=== PATIENT | male | born 1950 | race Caucasian/White ===

== ENCOUNTER 2016-08-09 13:24 | Emergency (ER) | payer MEDICARE, MEDICAID ==
[2016-08-09] MEDS ORDERED: GASTROGRAFIN SOLUTION 30ML (Q9963) As Ordered ONE (14:31)
[2016-08-09 14:35] LABS: BASO % 0.3 % (0.0-1.0); EOS # 0.5 K/mm3 (0.0-0.50); EOS % 4.7 % (0.0-3.0); LARGE UNSTAINED CELL # 0.1 K/mm3 (0.0-0.4); LARGE UNSTAINED CELL % 1.3 % (0.0-4.0); LYMPH # 1.2 K/mm3 (1.5-4.5); LYMPH % 12.4 % (24.0-44.0); MEAN CORPUSCULAR HEMOGLOBIN 31.6 pg (27.0-33.0); MEAN CORPUSCULAR HGB CONC 32.9 g/dl (32.0-36.5); MEAN CORPUSCULAR VOLUME 96.2 fl (80.0-96.0); MONO # 0.4 K/mm3 (0.0-0.8); MONO % 4.1 % (0.0-5.0); NEUTROPHILS # 7.5 K/mm3 (1.8-7.7); NEUTROPHILS % 77.2 % (36.0-66.0); PLATELET COUNT, AUTOMATED 226 k/mm3 (150-450); WHITE BLOOD COUNT 9.7 K/mm3 (4.0-10.0)
[2016-08-09 15:00] LABS: BLOOD UREA NITROGEN 15 MG/DL (7-18); GLUCOSE, FASTING 105 MG/DL (80-110)
[2016-08-09 15:01] LABS: ALBUMIN 3.3 GM/DL (3.2-5.2); ALBUMIN/GLOBULIN RATIO 0.92 (1.00-1.93); ALKALINE PHOSPHATASE 62 U/L (45-117); ALT/SGPT 13 U/L (12-78); ANION GAP 9 MEQ/L (8-16); AST/SGOT 12 U/L (15-37); BILIRUBIN,DIRECT 0.2 MG/DL (0.0-0.2); BILIRUBIN,TOTAL 0.4 MG/DL (0.2-1.0); CARBON DIOXIDE LEVEL 28 MEQ/L (21-32); CHLORIDE LEVEL 105 MEQ/L (98-107); CREATININE FOR GFR 0.86 MG/DL (0.70-1.30); GLOMERULAR FILTRATION RATE > 60.0 (>49); POTASSIUM SERUM 3.9 MEQ/L (3.5-5.1); SODIUM LEVEL 142 MEQ/L (136-145); TOTAL PROTEIN 6.9 GM/DL (6.4-8.2)
[2016-08-09] MEDS ORDERED: ISOVUE-370 76% 100ML VIAL (Q9967) As Ordered ONE (15:51)
[2016-08-09] MEDS ORDERED: ACETAMINOPHEN 325 MG TAB As Ordered ONE (17:33)
[2016-08-09] MEDS ORDERED: metroNIDAZOLE (FLAGYL) 500 MG TAB As Ordered ONE (18:25)
[2016-08-09] MEDS ORDERED: CIPROFLOXACIN 500 MG TAB As Ordered ONE (18:25)
--- NOTE | 2016-08-09 18:36 | REP ---
CT of the abdomen and pelvis with IV and oral contrast: Indication: Diverticulitis. Comparison: CT abdomen and pelvis 03/05. Technique: After drinking two cups of oral contrast each containing 10 ml gastrographin and 290 ml water, and IV injection of 100 ml Isovue 370 mg/ml, 3 mm spiral axial sections were performed through abdomen and pelvis. Findings: Fibroatelectatic changes are seen in the lower lobes bilaterally. Additionally there are bullous changes in lung bases, left greater than right and unchanged. Liver without focal lesion. Spleen, pancreas, gallbladder, adrenal glands are normal. Kidneys are without hydronephrosis or obstructing ureteral calculi bilaterally. The stomach and small bowel are without obstruction. There is mural thickening in the terminal ileum, in the base of cecum, cecum and second area of mural thickening within the distal portion of the ascending colon, contiguous with the hepatic flexure. There is extensive diverticulosis involving descending and entire sigmoid colon. Abdominal aorta is of normal course and caliber. There are atherosclerotic changes in the aorta and iliac arteries. Bladder is contracted. Persistent prostatic hypertrophy with interval increase in size and progression of small nodular focus within the prostate is seen with extrinsic impression upon the inferior bladder. There are associated coarse calcifications within the periphery of the nodular prosthetic component. Prostate measures 4 cm AP by 5.5 cm transverse by 5 cm craniocaudal dimension. There is no free air or ascites. The appendix is normal. There are no lytic or blastic lesions of bone. Advanced degenerative disc changes noted L4-5 and L5-S1 bilaterally. Impression: 1. Moderate mural thickening with skip areas seen within the terminal ileum, base of cecum, ascending colon, and hepatic flexure. Differential diagnosis includes colitis, which could be on the basis of infectious colitis, ischemic, or inflammatory colitis. Recommend follow-up to resolution. There is no free intraperitoneal air and there is no evidence of pneumatosis. 2. Mild to moderate prostatic hypertrophy not significantly changed, with extrinsic impression upon the inferior bladder, similar to prior.3. Appendix without inflammation.4. Severe/extensive sigmoid diverticulosis. Case discussed with Dr. Kaminski in ED on 08/09/16 at 5 pm. Signed by Kaitlynn Bailon MD 08/13/2016 08:31 P
--- NOTE | 2016-08-09 18:38 | EDDOCDS ---
Physician Documentation [facility] Name: Joseph Carranza Age: 66 yrs Sex: Male : 1950 Arrival Date: 08/09/2016 Time: 13:24 Bed 19 Private MD: Lennox Burr M.D. Disposition: 08/09/16 18:13 Discharged to Home/Self Care. Impression: Acute upper respiratory infection, unspecified, Abdominal and pelvic pain - Colitis. - Condition is Stable. - Discharge Instructions: Abdominal Pain, Adult, Upper Respiratory Infection, Adult. - Prescriptions for Cipro 500 mg Oral Tablet - take 1 tablet by ORAL route every 12 hours; 14 tablet. Flagyl 500 mg Oral Tablet - take 1 tablet by ORAL route every 8 hours for 7 days; 21 tablet. - Medication Reconciliation, Local Pharmacy Hours form. - Follow up: Lennox Burr; When: 2 - 3 days; Reason: Recheck today's complaints. Follow up: Xavi Pope; When: 2 - 3 days; Reason: Recheck today's complaints. - Problem is new. - Symptoms are unchanged. - Notes: You were seen in the ED for shortness of breath, cough and congestion. Chest Xray along with bloodwork showed no acute findings at this time. CT scan of the abdomen showed findings consistent with colitis - you will need further evaluation of this with Dr. Burr and Gastroenterology. Please call in the morning to make both of these appointments. Take the antibiotics as written. Return to the ED for any chest pain, trouble breathing, worsening abdominal pain, fever, inability to tolerate oral foods or liquids or any other concerns. Historical: - Allergies: no known allergies; - Home Meds: 1. lisinopril 10 mg Oral tab 1 tab once daily (Last dose: 08/09/2016 10:00) 2. simvastatin 10 mg Oral tab 1 tab once daily 3. Prozac 40 mg Oral cap 1 cap once daily 4. albuterol sulfate 90 mcg/actuation Inhl aepb 2 puffs every 4-6 hours as needed 5. albuterol sulfate 1.25 mg/3 mL Inhl nebu 3 mL 4 times per day - PMHx: Depression; Hypertension; High Cholesterol; COPD; - PSHx: bilateral Knees; Tonsillectomy; - Social history: Smoking status: Patient states former smoker of tobacco. No barriers to communication noted, The patient speaks fluent Turkish, Speaks appropriately for age. - Family history: No immediate family members are acutely ill. - : The pt / caregiver states he / she is not on anticoagulants. Home medication list is obtained from the patient. - Exposure Risk Screening:: None identified. Vital Signs: 08/09 13:26 BP 142 / 91; Pulse 104; Resp 20; Temp 97.4; Pulse Ox 96% ; Weight 90.72 kg / 200 lbs; cmb Height 6 ft. 3 in. (190.50 cm); Pain 7/10; 13:34 Resp 24; mlb1 16:07 Pulse 76 MON; Pulse Ox 94% ; mb9 16:07 BP 132 / 76 (auto/); mb9 16:09 Pulse 74 MON; Pulse Ox 94% ; mb9 16:09 BP 137 / 85 (auto/); mb9 16:39 Pulse 70 MON; Pulse Ox 94% ; mb9 16:39 BP 118 / 76 (auto/); mb9 17:09 Pulse 74 MON; Pulse Ox 92% ; mb9 17:09 BP 118 / 66 (auto/); mb9 13:26 Body Mass Index 25.00 (90.72 kg, 190.50 cm) cmb MDM: 13:54 -Blood Culture (Adults Only), peripheral from different site, or from device/port/PICC sd1 etc. if present ordered. 13:54 Traveling Nurse/Pulse Ox/q 15 min VS ordered. sd1 13:54 IV Saline Lock ordered. sd1 13:54 Oxygen at 4L/Min NC or Home dosage ordered. sd1 13:54 Rhythm Strip to chart ordered. sd1 13:55 B-Type Natiuretic Peptide Ordered. EDMS 13:55 Basic Metabolic Profile Ordered. EDMS 13:55 CBC with Diff Ordered. EDMS 13:55 Cardiac Injury Profile Ordered. EDMS 13:55 Troponin Ordered. EDMS 13:55 -Blood Culture Ordered. EDMS 13:56 Chest, 1 View Ordered. EDMS 13:56 ECG WITH READING ER PHYS+CARDIAG ordered. EDMS 13:58 -Blood Culture (Adults Only), peripheral from different site, or from device/port/PICC jlf etc. if present complete. 14:00 BLOOD CULTURES Ordered. EDMS 14:08 CT ABD & PELVIS: IV and Oral Contrast Ordered. EDMS 14:26 Diatrizoate Meglumine & Sodium Liquid 10 ml PO once; mix in 290cc of water ordered. mb9 14:26 Diatrizoate Meglumine & Sodium Liquid 10 ml PO once; mix in 290cc of water ordered. mb9 14:29 LIPASE Ordered. EDMS 14:29 LIVER PROFILE Ordered. EDMS 14:59 CBC with Diff Reviewed. br1 15:19 Financial registration complete. gjb 15:24 [facility] Payment Agreement was scanned into [employer] and attached to record. gjb 16:09 LIVER PROFILE Reviewed. br1 16:09 B-Type Natiuretic Peptide Reviewed. br1 16:09 Basic Metabolic Profile Reviewed. br1 16:09 Cardiac Injury Profile Reviewed. br1 16:09 Troponin Reviewed. br1 16:09 LIPASE Reviewed. br1 17:05 Acetaminophen Tablet 650 mg PO once ordered. br1 17:59 REGULAR+DIET ordered. EDMS 18:11 Ciprofloxacin 500 mg PO once ordered. br1 18:11 metroNIDAZOLE 500 mg PO once ordered. br1 Administered Medications: 14:30 Drug: Diatrizoate Meglumine & Sodium 10 ml [diatrizoate meglumine and diat.sodium 66 mb9 %-10 % oral solution (10 mL)] Route: PO; 15:05 Drug: Diatrizoate Meglumine & Sodium 10 ml [diatrizoate meglumine and diat.sodium 66 mb9 %-10 % oral solution (10 mL)] Route: PO; 17:36 Drug: Acetaminophen 650 mg [acetaminophen 325 mg tablet (2 tabs)] Route: PO; mb9 18:35 Drug: Ciprofloxacin 500 mg [ciprofloxacin 500 mg tablet (1 tabs)] Route: PO; mb9 18:35 Drug: metroNIDAZOLE 500 mg [metronidazole 500 mg tablet (1 tabs)] Route: PO; mb9 Signatures: Dispatcher [employer] EDMS Lucinda Tatum MD MD sdAlejandro Hu RN RN mlb1 Abilio Kaminski MD MD br1 Saúl Paiz, JEANNETTE ASSOCIATE ACCOUNT MANAGER jlf Alejandro Herrera,RN RN [id number] Francesca Regan The chart was reviewed and I authenticate all verbal orders and agree with the evaluation and treatment provided.Corrections: (The following items were deleted from the chart) 14:29 14:08 LIVER PROFILE+LAB ordered. EDMS EDMS 14 14:08 LIPASE+LAB ordered. EDMS EDMS Attachments: 15:24 [facility] Payment Agreement gjb [facility]
--- NOTE | 2016-08-09 18:39 | EDDOCDS ---
Nurse's Notes [facility] Name: Joseph Carranza Age: 66 yrs Sex: Male : 1950 Arrival Date: 08/09/2016 Time: 13:24 Bed 19 Private MD: Lennox Burr M.D. Diagnosis: Acute upper respiratory infection, unspecified;Abdominal and pelvic pain-Colitis Presentation: 08/09 13:28 Presenting complaint: Patient states: SOB and productive cough began Sunday. Adult mlb1 Sepsis Screening: The patient does not have new or worsening altered mentation. Patient's respiratory rate is less than 22. Systolic blood pressure is greater than 100. Patient has a qSOFA score of 0- Negative Sepsis Screen. Suicide/Homicide risk assessment- the patient denies having any suicidal and/or homicidal ideations and does not present with any other emotional, behavioral or mental health complaints. Status: Patient is not a conference services director or dependent. Transition of care: patient was not received from another setting of care. 13:28 Acuity: ASHOK Level 3 mlb1 13:28 Method Of Arrival: Walkin/Carried/Asstd mlb1 Triage Assessment: 13:32 General: Appears distressed, Behavior is appropriate for age, cooperative. Pain: mlb1 Location: low back area Pain currently is 7.5 out of 10 on a pain scale. Respiratory: Onset: The symptoms/episode began/occurred gradually, Airway is patent Respiratory effort is even, labored, Reports cough that is productive. Historical: - Allergies: no known allergies; - Home Meds: 1. lisinopril 10 mg Oral tab 1 tab once daily (Last dose: 08/09/2016 10:00) 2. simvastatin 10 mg Oral tab 1 tab once daily 3. Prozac 40 mg Oral cap 1 cap once daily 4. albuterol sulfate 90 mcg/actuation Inhl aepb 2 puffs every 4-6 hours as needed 5. albuterol sulfate 1.25 mg/3 mL Inhl nebu 3 mL 4 times per day - PMHx: Depression; Hypertension; High Cholesterol; COPD; - PSHx: bilateral Knees; Tonsillectomy; - Social history: Smoking status: Patient states former smoker of tobacco. No barriers to communication noted, The patient speaks fluent Maldivian, Speaks appropriately for age. - Family history: No immediate family members are acutely ill. - : The pt / caregiver states he / she is not on anticoagulants. Home medication list is obtained from the patient. - Exposure Risk Screening:: None identified. Screenin:07 Screening information is obtained from the patient. Fall risk: No risks identified. mb9 Assistance ADL's: requires no assistance with activities of daily living. Abuse/DV Screen: The patient / caregiver reports he/she is: not in a situation that causes fear, pain or injury. Nutritional screening: No deficits noted. Advance Directives: There is no active DNR order. home support is adequate. Assessment: 13:46 General: Appears unkempt, Behavior is appropriate for age, fussy. Pain: Location: mb9 posterior cervical area and low back area Pain currently is 5 out of 10 on a pain scale. Neurological: Level of Consciousness is awake, alert, Oriented to person, place, time. Cardiovascular: Heart tones S1 S2 present Rhythm is sinus rhythm No ectopy. Respiratory: Airway is patent Respiratory effort is even, labored, Respiratory pattern is regular, symmetrical, Breath sounds are clear bilaterally. Reports shortness of breath cough that is. GI: Reports bloody stools pt reports bloody stools after a fall on Sunday. pt reports a history of internal hemorrhoids. Derm: pt has several healing wounds to his nose after a fall on Sunday. 16:07 Reassessment: Patient appears in no apparent distress at this time. Adult Sepsis mb9 Screening: The patient does not have new or worsening altered mentation. Patient's respiratory rate is less than 22. Systolic blood pressure is greater than 100. Patient has a qSOFA score of 0- Negative Sepsis Screen. General: Appears in no apparent distress, Behavior is appropriate for age, cooperative. Pain: Denies pain. Neurological: Level of Consciousness is awake, alert, Oriented to person, place, time. Respiratory: Airway is patent Respiratory effort is even, unlabored, Breath sounds are clear bilaterally. 17:36 Reassessment: Patient appears in no apparent distress at this time. Patient states mb9 symptoms have improved. General: Appears in no apparent distress, Behavior is appropriate for age, cooperative. Pain: Location: headache. Neurological: Level of Consciousness is awake, alert, Oriented to person, place, time. Respiratory: Airway is patent Respiratory effort is even, unlabored. 18:36 Reassessment: Patient appears in no apparent distress at this time. Patient states mb9 feeling better. Patient states symptoms have improved. Adult Sepsis Screening: The patient does not have new or worsening altered mentation. Patient's respiratory rate is less than 22. Systolic blood pressure is greater than 100. Patient has a qSOFA score of 0- Negative Sepsis Screen. General: Appears in no apparent distress, Behavior is appropriate for age, cooperative. Pain: Denies pain. Respiratory: Airway is patent Respiratory effort is even, unlabored. Vital Signs: 13:26 BP 142 / 91; Pulse 104; Resp 20; Temp 97.4; Pulse Ox 96% ; Weight 90.72 kg; Height 6 cmb ft. 3 in. (190.50 cm); Pain 7/10; 13:34 Resp 24; mlb1 16:07 Pulse 76 MON; Pulse Ox 94% ; mb9 16:07 BP 132 / 76 (auto/); mb9 16:09 Pulse 74 MON; Pulse Ox 94% ; mb9 16:09 BP 137 / 85 (auto/); mb9 16:39 Pulse 70 MON; Pulse Ox 94% ; mb9 16:39 BP 118 / 76 (auto/); mb9 17:09 Pulse 74 MON; Pulse Ox 92% ; mb9 17:09 BP 118 / 66 (auto/); mb9 13:26 Body Mass Index 25.00 (90.72 kg, 190.50 cm) cmb Vitals: 13:26 Log In Time: August 09, 2016 at 13:23. cmb ED Course: 13:25 Patient visited by Lizzie Hall. cmb 13:25 Patient moved to Waiting cmb 13:26 Lennox Burr is Private Physician. cmb 13:27 Patient moved to Pre RCE cmb 13:28 Patient visited by Alejandro Oliveros, RN. mlb1 13:29 Triage Initiated mlb1 13:33 Patient visited by Alejandro Oliveros, RN. mlb1 13:34 Patient moved to 19 mlb1 13:58 Abilio Kaminski MD is Attending Physician. br1 14:06 Patient visited by Abilio Kaminski MD. br1 14:19 EKG done. (by ED staff). Reviewed by Abilio Kaminski MD. jml1 14:20 Patient visited by Sergio Pyle. jml1 14:25 -Blood Culture Sent. mb9 14:25 B-Type Natiuretic Peptide Sent. mb9 14:25 Basic Metabolic Profile Sent. mb9 14:25 CBC with Diff Sent. mb9 14:25 Cardiac Injury Profile Sent. mb9 14:25 Troponin Sent. mb9 14:41 LIPASE Sent. mb9 14:41 LIVER PROFILE Sent. mb9 15:16 Patient visited by Sergio Pyle. jml1 15:24 [facility] Payment Agreement was scanned into [employer] and attached to record. gjb 16:07 Patient visited by Alejandro Herrera RN. mb9 16:07 The patient / caregiver is instructed regarding the plan of care and ED course. mb9 16:07 Inserted saline lock: 18 gauge in left antecubital area and blood collected. The mb9 patient tolerated the procedure well. 16:28 Patient visited by Saúl Paiz PCA. jlf 17:00 Patient visited by Saúl Paiz PCA. jlf 17:36 Patient visited by Alejandro Herrera RN. mb9 18:11 Lennox Burr is Referral Physician. br1 18:11 Xavi Pope is Referral Physician. br1 18:36 Discontinued IV lock intact, bleeding controlled, pressure dressing applied, No mb9 redness/swelling at site. No procedures done that require assistance. Administered Medications: 14:30 Drug: Diatrizoate Meglumine & Sodium 10 ml [diatrizoate meglumine and diat.sodium 66 mb9 %-10 % oral solution (10 mL)] Route: PO; 15:05 Drug: Diatrizoate Meglumine & Sodium 10 ml [diatrizoate meglumine and diat.sodium 66 mb9 %-10 % oral solution (10 mL)] Route: PO; 17:36 Drug: Acetaminophen 650 mg [acetaminophen 325 mg tablet (2 tabs)] Route: PO; mb9 18:35 Drug: Ciprofloxacin 500 mg [ciprofloxacin 500 mg tablet (1 tabs)] Route: PO; mb9 18:35 Drug: metroNIDAZOLE 500 mg [metronidazole 500 mg tablet (1 tabs)] Route: PO; mb9 Order Results: Lab Order: B-Type Natiuretic Peptide; SPEC'M 08/09/16 14:22 Test: BRAIN NATRIURETIC PEPTIDE; Value: 29.6; Range: <100; Units: PG/ML; Status: F Lab Order: Basic Metabolic Profile; SPEC'M 08/09/16 14:22 Test: GLUCOSE, FASTING; Value: 105; Range: 80-110; Units: MG/DL; Status: F Test: BLOOD UREA NITROGEN; Value: 15; Range: 7-18; Units: MG/DL; Status: F Test: CREATININE FOR GFR; Value: 0.86; Range: 0.70-1.30; Units: MG/DL; Status: F Test: GLOMERULAR FILTRATION RATE; Value: > 60.0; Range: >49; Status: F Test: SODIUM LEVEL; Value: 142; Range: 136-145; Units: MEQ/L; Status: F Test: POTASSIUM SERUM; Value: 3.9; Range: 3.5-5.1; Units: MEQ/L; Status: F Test: CHLORIDE LEVEL; Value: 105; Range: 98-107; Units: MEQ/L; Status: F Test: CARBON DIOXIDE LEVEL; Value: 28; Range: 21-32; Units: MEQ/L; Status: F Test: ANION GAP; Value: 9; Range: 8-16; Units: MEQ/L; Status: F Test: CALCIUM LEVEL; Value: 9.0; Range: 8.8-10.2; Units: MG/DL; Status: F Test Note: ; Units are mL/min/1.73 m2 Chronic Kidney Disease Staging per NKF: Stage I & II GFR >=60 Normal to Mildly Decreased Stage III GFR 30-59 Moderately Decreased Stage IV GFR 15-29 Severely Decreased Stage V GFR <15 Very Little GFR Left ESRD GFR <15 on BUDGET ACCOUNTANT Lab Order: CBC with Diff; SPEC'M 08/09/16 14:22 Test: WHITE BLOOD COUNT; Value: 9.7; Range: 4.0-10.0; Units: K/mm3; Status: F Test: RED BLOOD COUNT; Value: 4.74; Range: 4.30-6.10; Units: M/mm3; Status: F Test: HEMOGLOBIN; Value: 15.0; Range: 14.0-18.0; Units: g/dl; Status: F Test: HEMATOCRIT; Value: 45.6; Range: 42.0-52.0; Units: %; Status: F Test: MEAN CORPUSCULAR VOLUME; Value: 96.2; Range: 80.0-96.0; Abnormal: Above high normal; Units: fl; Status: F Test: MEAN CORPUSCULAR HEMOGLOBIN; Value: 31.6; Range: 27.0-33.0; Units: pg; Status: F Test: MEAN CORPUSCULAR HGB CONC; Value: 32.9; Range: 32.0-36.5; Units: g/dl; Status: F Test: RED CELL DISTRIBUTION WIDTH; Value: 13.0; Range: 11.5-14.5; Units: %; Status: F Test: PLATELET COUNT, AUTOMATED; Value: 226; Range: 150-450; Units: k/mm3; Status: F Test: NEUTROPHILS %; Value: 77.2; Range: 36.0-66.0; Abnormal: Above high normal; Units: %; Status: F Test: LYMPH %; Value: 12.4; Range: 24.0-44.0; Abnormal: Below low normal; Units: %; Status: F Test: MONO %; Value: 4.1; Range: 0.0-5.0; Units: %; Status: F Test: EOS %; Value: 4.7; Range: 0.0-3.0; Abnormal: Above high normal; Units: %; Status: F Test: BASO %; Value: 0.3; Range: 0.0-1.0; Units: %; Status: F Test: LARGE UNSTAINED CELL %; Value: 1.3; Range: 0.0-4.0; Units: %; Status: F Test: NEUTROPHILS #; Value: 7.5; Range: 1.8-7.7; Units: K/mm3; Status: F Test: LYMPH #; Value: 1.2; Range: 1.5-4.5; Abnormal: Below low normal; Units: K/mm3; Status: F Test: MONO #; Value: 0.4; Range: 0.0-0.8; Units: K/mm3; Status: F Test: EOS #; Value: 0.5; Range: 0.0-0.50; Units: K/mm3; Status: F Test: BASO #; Value: 0.0; Range: 0.0-0.2; Units: K/mm3; Status: F Test: LARGE UNSTAINED CELL #; Value: 0.1; Range: 0.0-0.4; Units: K/mm3; Status: F Lab Order: Cardiac Injury Profile; [facility] 08/09/16 14:22 Test: CPK CREATINE PHOSPHOKINASE; Value: 41; Range: 39-308; Units: U/L; Status: F Test: CK-MB VALUE MASS; Value: 1.2; Range: 0.0-3.6; Units: NG/ML; Status: F Test: MB/CK RELATIVE INDEX; Value: 2.92; Range: < OR =4; Status: F Test Note: ; DIAGNOSIS CRITERIA MMB ng/ml Relative Index (RI) NON-AMI < or = 5 N/A RIVERA ZONE > 5 < or = 4 AMI > 5 > 4 Lab Order: Troponin; [facility]' 08/09/16 14:22 Test: TROPONIN I; Value: < 0.02; Range: < 0.10; Units: NG/ML; Status: F Test Note: ; Troponin I Reference Interval for [place] LOCI: 99th Percentile= 0.00-0.045 ng/ml Risk Stratification: <= 0.10 ng/ml Decreased Risk for Adverse Clinical Events. 0.10-1.50 ng/ml Increased Risk for Adverse Clinical Events. Evaluation of additional criterion and/or repeat testing in 2-6 hours is suggested to rule out myocardial damage. >= 1.50 ng/ml Indicative of Myocardial Injury. Lab Order: LIPASE; [facility]' 08/09/16 14:22 Test: LIPASE; Value: 108; Range: 73-393; Units: U/L; Status: F Lab Order: LIVER PROFILE; [facility]' 08/09/16 14:22 Test: AST/SGOT; Value: 12; Range: 15-37; Abnormal: Below low normal; Units: U/L; Status: F Test: ALT/SGPT; Value: 13; Range: 12-78; Units: U/L; Status: F Test: ALKALINE PHOSPHATASE; Value: 62; Range: 45-117; Units: U/L; Status: F Test: BILIRUBIN,TOTAL; Value: 0.4; Range: 0.2-1.0; Units: MG/DL; Status: F Test: BILIRUBIN,DIRECT; Value: 0.2; Range: 0.0-0.2; Units: MG/DL; Status: F Test: TOTAL PROTEIN; Value: 6.9; Range: 6.4-8.2; Units: GM/DL; Status: F Test: ALBUMIN; Value: 3.3; Range: 3.2-5.2; Units: GM/DL; Status: F Test: ALBUMIN/GLOBULIN RATIO; Value: 0.92; Range: 1.00-1.93; Abnormal: Below low normal; Status: F Outcome: 18:13 Discharge ordered by Provider. br1 18:36 Discharge Assessment: Patient awake, alert and oriented x 3. No cognitive and/or mb9 functional deficits noted. Patient verbalized understanding of disposition instructions. patient administered narcotics - no. The following High Risk Discharge criteria are identified: None. Condition: good Condition: stable Condition: improved. Discharge instructions given to patient, Instructed on discharge instructions, follow up and referral plans. medication usage, Demonstrated understanding of instructions, medications, Pt was receptive of discharge instructions/ teaching. CT Study completed. Property :Personal belongings accompany Pt. 18:38 Patient left the ED. mb9 Signatures: Alejandro Oliveros, RN RN mlb1 Abilio Kaminski MD MD br1 Sergio Pyle jml1 Lizzie Hall Jordain, JEANNETTE BLOOD OR BLOOD BANK TECHNICIAN feliciaf Alejandro Herrera,RN RN mb9 Francesca Regan Corrections: (The following items were deleted from the chart) 14:29 14:25 LIPASE+LAB sent. mb9 EDMS 14:29 14:25 LIVER PROFILE+LAB sent. mb9 EDMS MTDD
--- NOTE | 2016-08-09 20:03 | ECGEPIP ---
Stationary ECG Study 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
--- NOTE | 2016-08-09 21:34 | REP ---
AP portable chest 08/09/2016 Indication: Shortness of breath Comparison: PA and lateral chest 11/21/2013, CT chest 12/04/2013 Findings: Cardiomediastinal silhouette is normal. Stable blunting is seen within the left costophrenic angle most compatible with pleural scarring. Small amount of bibasilar fibrotic interstitial scarring is noted . Mild hyperinflation and flattening of diaphragms are consistent with COPD. There is mild thoracic dextroscoliosis and mild to moderate degenerative changes in thoracic spine. Impression 1. COPD; mild bibasilar fibrotic interstitial scarring. Findings most compatible with left basilar pleural scarring. 2. Cardiomediastinal silhouette is within normal limits 3. Mild thoracic dextroscoliosis. [id number] degenerative changes in thoracic spine Signed by Kaitlynn Bailon MD 08/09/2016 09:26 P
--- NOTE | 2016-08-11 19:39 | EDDOCDS ---
Nurse's Notes Name: Joseph Carranza Age: 66 yrs Sex: Male : 1950 Arrival Date: 08/09/2016 Time: 13:24 Bed 19 Private MD: Lennox Burr M.D. Diagnosis: Acute upper respiratory infection, unspecified;Abdominal and pelvic pain-Colitis Presentation: 08/09 13:28 Presenting complaint: Patient states: SOB and productive cough began Sunday. Adult mlb1 Sepsis Screening: The patient does not have new or worsening altered mentation. Patient's respiratory rate is less than 22. Systolic blood pressure is greater than 100. Patient has a qSOFA score of 0- Negative Sepsis Screen. Suicide/Homicide risk assessment- the patient denies having any suicidal and/or homicidal ideations and does not present with any other emotional, behavioral or mental health complaints. Status: Patient is not a medicine and health service manager or dependent. Transition of care: patient was not received from another setting of care. 13:28 Acuity: ASHOK Level 3 mlb1 13:28 Method Of Arrival: Walkin/Carried/Asstd mlb1 Triage Assessment: 13:32 General: Appears distressed, Behavior is appropriate for age, cooperative. Pain: mlb1 Location: low back area Pain currently is 7.5 out of 10 on a pain scale. Respiratory: Onset: The symptoms/episode began/occurred gradually, Airway is patent Respiratory effort is even, labored, Reports cough that is productive. Historical: - Allergies: no known allergies; - Home Meds: 1. lisinopril 10 mg Oral tab 1 tab once daily (Last dose: 08/09/2016 10:00) 2. simvastatin 10 mg Oral tab 1 tab once daily 3. Prozac 40 mg Oral cap 1 cap once daily 4. albuterol sulfate 90 mcg/actuation Inhl aepb 2 puffs every 4-6 hours as needed 5. albuterol sulfate 1.25 mg/3 mL Inhl nebu 3 mL 4 times per day - PMHx: Depression; Hypertension; High Cholesterol; COPD; - PSHx: bilateral Knees; Tonsillectomy; - Social history: Smoking status: Patient states former smoker of tobacco. No barriers to communication noted, The patient speaks fluent [place], Speaks appropriately for age. - Family history: No immediate family members are acutely ill. - : The pt / caregiver states he / she is not on anticoagulants. Home medication list is obtained from the patient. - Exposure Risk Screening:: None identified. Screenin:07 Screening information is obtained from the patient. Fall risk: No risks identified. mb9 Assistance ADL's: requires no assistance with activities of daily living. Abuse/DV Screen: The patient / caregiver reports he/she is: not in a situation that causes fear, pain or injury. Nutritional screening: No deficits noted. Advance Directives: There is no active DNR order. home support is adequate. Assessment: 13:46 General: Appears unkempt, Behavior is appropriate for age, fussy. Pain: Location: mb9 posterior cervical area and low back area Pain currently is 5 out of 10 on a pain scale. Neurological: Level of Consciousness is awake, alert, Oriented to person, place, time. Cardiovascular: Heart tones S1 S2 present Rhythm is sinus rhythm No ectopy. Respiratory: Airway is patent Respiratory effort is even, labored, Respiratory pattern is regular, symmetrical, Breath sounds are clear bilaterally. Reports shortness of breath cough that is. GI: Reports bloody stools pt reports bloody stools after a fall on Sunday. pt reports a history of internal hemorrhoids. Derm: pt has several healing wounds to his nose after a fall on Sunday. 16:07 Reassessment: Patient appears in no apparent distress at this time. Adult Sepsis mb9 Screening: The patient does not have new or worsening altered mentation. Patient's respiratory rate is less than 22. Systolic blood pressure is greater than 100. Patient has a qSOFA score of 0- Negative Sepsis Screen. General: Appears in no apparent distress, Behavior is appropriate for age, cooperative. Pain: Denies pain. Neurological: Level of Consciousness is awake, alert, Oriented to person, place, time. Respiratory: Airway is patent Respiratory effort is even, unlabored, Breath sounds are clear bilaterally. 17:36 Reassessment: Patient appears in no apparent distress at this time. Patient states mb9 symptoms have improved. General: Appears in no apparent distress, Behavior is appropriate for age, cooperative. Pain: Location: headache. Neurological: Level of Consciousness is awake, alert, Oriented to person, place, time. Respiratory: Airway is patent Respiratory effort is even, unlabored. 18:36 Reassessment: Patient appears in no apparent distress at this time. Patient states mb9 feeling better. Patient states symptoms have improved. Adult Sepsis Screening: The patient does not have new or worsening altered mentation. Patient's respiratory rate is less than 22. Systolic blood pressure is greater than 100. Patient has a qSOFA score of 0- Negative Sepsis Screen. General: Appears in no apparent distress, Behavior is appropriate for age, cooperative. Pain: Denies pain. Respiratory: Airway is patent Respiratory effort is even, unlabored. Vital Signs: 13:26 BP 142 / 91; Pulse 104; Resp 20; Temp 97.4; Pulse Ox 96% ; Weight 90.72 kg; Height 6 cmb ft. 3 in. (190.50 cm); Pain 7/10; 13:34 Resp 24; mlb1 16:07 Pulse 76 MON; Pulse Ox 94% ; mb9 16:07 BP 132 / 76 (auto/); mb9 16:09 Pulse 74 MON; Pulse Ox 94% ; mb9 16:09 BP 137 / 85 (auto/); mb9 16:39 Pulse 70 MON; Pulse Ox 94% ; mb9 16:39 BP 118 / 76 (auto/); mb9 17:09 Pulse 74 MON; Pulse Ox 92% ; mb9 17:09 BP 118 / 66 (auto/); mb9 13:26 Body Mass Index 25.00 (90.72 kg, 190.50 cm) cmb Vitals: 13:26 Log In Time: August 09, 2016 at 13:23. cmb ED Course: 13:25 Patient visited by Lizzie Hall. cmb 13:25 Patient moved to Waiting cmb 13:26 Lennox Burr is Private Physician. cmb 13:27 Patient moved to Pre RCE cmb 13:28 Patient visited by Alejandro Oliveros, RN. mlb1 13:29 Triage Initiated mlb1 13:33 Patient visited by Alejandro Oliveros, RN. mlb1 13:34 Patient moved to 19 mlb1 13:58 Abilio Kaminski MD is Attending Physician. br1 14:06 Patient visited by Abilio Kaminski MD. br1 14:19 EKG done. (by ED staff). Reviewed by Abilio Kaminski MD. jml1 14:20 Patient visited by Sergio Pyle. jml1 14:25 -Blood Culture Sent. mb9 14:25 B-Type Natiuretic Peptide Sent. mb9 14:25 Basic Metabolic Profile Sent. mb9 14:25 CBC with Diff Sent. mb9 14:25 Cardiac Injury Profile Sent. mb9 14:25 Troponin Sent. mb9 14:41 LIPASE Sent. mb9 14:41 LIVER PROFILE Sent. mb9 15:16 Patient visited by Sergio Pyle. jml1 15:24 [facility] Payment Agreement was scanned into [employer] and attached to record. gjb 16:07 Patient visited by Alejandro Herrera RN. mb9 16:07 The patient / caregiver is instructed regarding the plan of care and ED course. mb9 16:07 Inserted saline lock: 18 gauge in left antecubital area and blood collected. The mb9 patient tolerated the procedure well. 16:28 Patient visited by Saúl Paiz PCA. jlf 17:00 Patient visited by Saúl Paiz PCA. jlf 17:36 Patient visited by Alejandro Herrera RN. mb9 18:11 Lennox Burr is Referral Physician. br1 18:11 Xavi Pope is Referral Physician. br1 18:36 Discontinued IV lock intact, bleeding controlled, pressure dressing applied, No mb9 redness/swelling at site. No procedures done that require assistance. 19:14 CT ABD & PELVIS: IV and Oral Contrast Returned. EDMS 20:06 EKG-ADULT Returned. EDMS 22:32 Chest, 1 View Returned. EDMS 01 08:38 T-Sheet-- Draft Copy was scanned into [employer] and attached to record. gb Administered Medications: 08/09 14:30 Drug: Diatrizoate Meglumine & Sodium 10 ml [diatrizoate meglumine and diat.sodium 66 mb9 %-10 % oral solution (10 mL)] Route: PO; 15:05 Drug: Diatrizoate Meglumine & Sodium 10 ml [diatrizoate meglumine and diat.sodium 66 mb9 %-10 % oral solution (10 mL)] Route: PO; 17:36 Drug: Acetaminophen 650 mg [acetaminophen 325 mg tablet (2 tabs)] Route: PO; mb9 18:35 Drug: Ciprofloxacin 500 mg [ciprofloxacin 500 mg tablet (1 tabs)] Route: PO; mb9 18:35 Drug: metroNIDAZOLE 500 mg [metronidazole 500 mg tablet (1 tabs)] Route: PO; mb9 Order Results: Lab Order: -Blood Culture; SPEC'M 08/09/16 15:14 Test: BLOOD CULTURE; Value: No growth after 24 hours . All specimens observed; Status: F Test: BLOOD CULTURE; Value: for 5 days. Results final at that time.; Status: F Test: BLOOD CULTURE; Value: No Growth after 48 hours. All Specimens observed; Status: F Test: BLOOD CULTURE; Value: for 7 days. Results final at that time.; Status: F Lab Order: B-Type Natiuretic Peptide; SPEC'M 08/09/16 14:22 Test: BRAIN NATRIURETIC PEPTIDE; Value: 29.6; Range: <100; Units: PG/ML; Status: F Lab Order: Basic Metabolic Profile; SPEC'M 08/09/16 14:22 Test: GLUCOSE, FASTING; Value: 105; Range: 80-110; Units: MG/DL; Status: F Test: BLOOD UREA NITROGEN; Value: 15; Range: 7-18; Units: MG/DL; Status: F Test: CREATININE FOR GFR; Value: 0.86; Range: 0.70-1.30; Units: MG/DL; Status: F Test: GLOMERULAR FILTRATION RATE; Value: > 60.0; Range: >49; Status: F Test: SODIUM LEVEL; Value: 142; Range: 136-145; Units: MEQ/L; Status: F Test: POTASSIUM SERUM; Value: 3.9; Range: 3.5-5.1; Units: MEQ/L; Status: F Test: CHLORIDE LEVEL; Value: 105; Range: 98-107; Units: MEQ/L; Status: F Test: CARBON DIOXIDE LEVEL; Value: 28; Range: 21-32; Units: MEQ/L; Status: F Test: ANION GAP; Value: 9; Range: 8-16; Units: MEQ/L; Status: F Test: CALCIUM LEVEL; Value: 9.0; Range: 8.8-10.2; Units: MG/DL; Status: F Test Note: ; Units are mL/min/1.73 m2 Chronic Kidney Disease Staging per NKF: Stage I & II GFR >=60 Normal to Mildly Decreased Stage III GFR 30-59 Moderately Decreased Stage IV GFR 15-29 Severely Decreased Stage V GFR <15 Very Little GFR Left ESRD GFR <15 on DATA ENTRY EMAIL PROCESSOR Lab Order: CBC with Diff; OSCAR'Otoniel 08/09/16 14:22 Test: WHITE BLOOD COUNT; Value: 9.7; Range: 4.0-10.0; Units: K/mm3; Status: F Test: RED BLOOD COUNT; Value: 4.74; Range: 4.30-6.10; Units: M/mm3; Status: F Test: HEMOGLOBIN; Value: 15.0; Range: 14.0-18.0; Units: g/dl; Status: F Test: HEMATOCRIT; Value: 45.6; Range: 42.0-52.0; Units: %; Status: F Test: MEAN CORPUSCULAR VOLUME; Value: 96.2; Range: 80.0-96.0; Abnormal: Above high normal; Units: fl; Status: F Test: MEAN CORPUSCULAR HEMOGLOBIN; Value: 31.6; Range: 27.0-33.0; Units: pg; Status: F Test: MEAN CORPUSCULAR HGB CONC; Value: 32.9; Range: 32.0-36.5; Units: g/dl; Status: F Test: RED CELL DISTRIBUTION WIDTH; Value: 13.0; Range: 11.5-14.5; Units: %; Status: F Test: PLATELET COUNT, AUTOMATED; Value: 226; Range: 150-450; Units: k/mm3; Status: F Test: NEUTROPHILS %; Value: 77.2; Range: 36.0-66.0; Abnormal: Above high normal; Units: %; Status: F Test: LYMPH %; Value: 12.4; Range: 24.0-44.0; Abnormal: Below low normal; Units: %; Status: F Test: MONO %; Value: 4.1; Range: 0.0-5.0; Units: %; Status: F Test: EOS %; Value: 4.7; Range: 0.0-3.0; Abnormal: Above high normal; Units: %; Status: F Test: BASO %; Value: 0.3; Range: 0.0-1.0; Units: %; Status: F Test: LARGE UNSTAINED CELL %; Value: 1.3; Range: 0.0-4.0; Units: %; Status: F Test: NEUTROPHILS #; Value: 7.5; Range: 1.8-7.7; Units: K/mm3; Status: F Test: LYMPH #; Value: 1.2; Range: 1.5-4.5; Abnormal: Below low normal; Units: K/mm3; Status: F Test: MONO #; Value: 0.4; Range: 0.0-0.8; Units: K/mm3; Status: F Test: EOS #; Value: 0.5; Range: 0.0-0.50; Units: K/mm3; Status: F Test: BASO #; Value: 0.0; Range: 0.0-0.2; Units: K/mm3; Status: F Test: LARGE UNSTAINED CELL #; Value: 0.1; Range: 0.0-0.4; Units: K/mm3; Status: F Lab Order: Cardiac Injury Profile; [facility] 08/09/16 14:22 Test: CPK CREATINE PHOSPHOKINASE; Value: 41; Range: 39-308; Units: U/L; Status: F Test: CK-MB VALUE MASS; Value: 1.2; Range: 0.0-3.6; Units: NG/ML; Status: F Test: MB/CK RELATIVE INDEX; Value: 2.92; Range: < OR =4; Status: F Test Note: ; DIAGNOSIS CRITERIA MMB ng/ml Relative Index (RI) NON-AMI < or = 5 N/A RIVERA ZONE > 5 < or = 4 AMI > 5 > 4 Lab Order: Troponin; [facility] 08/09/16 14:22 Test: TROPONIN I; Value: < 0.02; Range: < 0.10; Units: NG/ML; Status: F Test Note: ; Troponin I Reference Interval for [employer] LOCI: 99th Percentile= 0.00-0.045 ng/ml Risk Stratification: <= 0.10 ng/ml Decreased Risk for Adverse Clinical Events. 0.10-1.50 ng/ml Increased Risk for Adverse Clinical Events. Evaluation of additional criterion and/or repeat testing in 2-6 hours is suggested to rule out myocardial damage. >= 1.50 ng/ml Indicative of Myocardial Injury. Lab Order: BLOOD CULTURES; [facility] 08/09/16 14:22 Test: BLOOD CULTURE; Value: No growth after 24 hours . All specimens observed; Status: F Test: BLOOD CULTURE; Value: for 5 days. Results final at that time.; Status: F Test: BLOOD CULTURE; Value: No Growth after 48 hours. All Specimens observed; Status: F Test: BLOOD CULTURE; Value: for 7 days. Results final at that time.; Status: F Lab Order: LIPASE; SPEC'M 08/09/16 14:22 Test: LIPASE; Value: 108; Range: 73-393; Units: U/L; Status: F Lab Order: LIVER PROFILE; SPEC'M 08/09/16 14:22 Test: AST/SGOT; Value: 12; Range: 15-37; Abnormal: Below low normal; Units: U/L; Status: F Test: ALT/SGPT; Value: 13; Range: 12-78; Units: U/L; Status: F Test: ALKALINE PHOSPHATASE; Value: 62; Range: 45-117; Units: U/L; Status: F Test: BILIRUBIN,TOTAL; Value: 0.4; Range: 0.2-1.0; Units: MG/DL; Status: F Test: BILIRUBIN,DIRECT; Value: 0.2; Range: 0.0-0.2; Units: MG/DL; Status: F Test: TOTAL PROTEIN; Value: 6.9; Range: 6.4-8.2; Units: GM/DL; Status: F Test: ALBUMIN; Value: 3.3; Range: 3.2-5.2; Units: GM/DL; Status: F Test: ALBUMIN/GLOBULIN RATIO; Value: 0.92; Range: 1.00-1.93; Abnormal: Below low normal; Status: F Radiology Order: Chest, 1 View Test: Chest, 1 View REASON FOR EXAMINATION: Shortness of Breath; AP portable chest 08/09/2016; ; Indication: Shortness of breath; ; Comparison: PA and lateral chest 11/21/2013, CT chest 12/04/2013; ; Findings: Cardiomediastinal silhouette is normal. Stable blunting is seen; within the left costophrenic angle most compatible with pleural scarring. Small; amount of bibasilar fibrotic interstitial scarring is noted . Mild; hyperinflation and flattening of diaphragms are consistent with COPD. There is; mild thoracic dextroscoliosis and mild to moderate degenerative changes in; thoracic spine.; ; Impression; 1. COPD; mild bibasilar fibrotic interstitial scarring. Findings most; compatible with left basilar pleural scarring.; ; 2. Cardiomediastinal silhouette is within normal limits; ; 3. Mild thoracic dextroscoliosis. 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; : 1950 Requested By: Lucinda Tatum; Order Number: [id number] Reading MD: Lucinda Tatum; Measurements; Intervals [place]; Rate: 73 P: 74; WY: 169 QRS: 71; QRSD: 108 T: 62; QT: 391; QTc: 434; Interpretive Statements; SINUS RHYTHM WITH SINUS ARRHYTHMIA; NSTTW ABNORMALITY; NO PRIOR FOR COMPARISON; Electronically Signed On 08-09-2016 20:03:06 EST by Lucinda Tatum; Radiology Order: CT ABD & PELVIS: IV and Oral Contrast Test: CT ABD & PELVIS: IV and Oral Contrast REASON FOR EXAMINATION: Diverticulitis; CT of the abdomen and pelvis with IV and oral contrast:; ; Indication: Diverticulitis.; Comparison: CT abdomen and pelvis 03/05.; ; Technique: After drinking two cups of oral contrast each containing 10 ml; gastrographin and 290 ml water, and IV injection of 100 ml Isovue 370 mg/ml, 3 mm; spiral axial sections were performed through abdomen and pelvis.; ; Findings: Fibroatelectatic changes are seen in the lower lobes bilaterally.; Additionally there are bullous changes in lung bases, left greater than right and; unchanged.; ; Liver without focal lesion. Spleen, pancreas, gallbladder, adrenal glands are; normal. Kidneys are without hydronephrosis or obstructing ureteral calculi; bilaterally. The stomach and small bowel are without obstruction. There is mural; thickening in the terminal ileum, in the base of cecum, cecum and second area of; mural thickening within the distal portion of the ascending colon, contiguous; with the hepatic flexure. There is extensive diverticulosis involving descending; and entire sigmoid colon. Abdominal aorta is of normal course and caliber. There; are atherosclerotic changes in the aorta and iliac arteries.; ; Bladder is contracted. Persistent prostatic hypertrophy with interval increase; in size and progression of small nodular focus within the prostate is seen with; extrinsic impression upon the inferior bladder. There are associated coarse; calcifications within the periphery of the nodular prosthetic component.; Prostate measures 4 cm AP by 5.5 cm transverse by 5 cm craniocaudal dimension.; There is no free air or ascites. The appendix is normal.; ; There are no lytic or blastic lesions of bone. Advanced degenerative disc; changes noted L4-5 and L5-S1 bilaterally.; ; Impression:; 1. Moderate mural thickening with skip areas seen within the terminal ileum,; base of cecum, ascending colon, and hepatic flexure. Differential diagnosis; includes colitis, which could be on the basis of infectious colitis, ischemic, or; inflammatory colitis. Recommend follow-up to resolution. There is no free; intraperitoneal air and there is no evidence of pneumatosis.; 2. Mild to moderate prostatic hypertrophy not significantly changed, with; extrinsic impression upon the inferior bladder, similar to prior.; 3. Appendix without inflammation.; 4. Severe/extensive sigmoid diverticulosis.; ; ; Case discussed with Dr. Kaminski in ED on 08/09/16 at 5 pm.; ; ; ; ; Unreviewed; Outcome: 18:13 Discharge ordered by Provider. br1 18:36 Discharge Assessment: Patient awake, alert and oriented x 3. No cognitive and/or mb9 functional deficits noted. Patient verbalized understanding of disposition instructions. patient administered narcotics - no. The following High Risk Discharge criteria are identified: None. Condition: good Condition: stable Condition: improved. Discharge instructions given to patient, Instructed on discharge instructions, follow up and referral plans. medication usage, Demonstrated understanding of instructions, medications, Pt was receptive of discharge instructions/ teaching. CT Study completed. Property :Personal belongings accompany Pt. 18:38 Patient left the ED. mb9 Signatures: Dispatcher [employer] EDMS Elaine Flores, Tin Reg Aeljandro Sethi RN RN mlb1 Abilio Kaminski MD MD br1 Sergio Pyle jml1 Lizzie Hall cmb Saúl Paiz, JEANNETTE BUSINESS SERVICES SPECIALIST SALES jlf Alejandro Herrera RN RN mb9 Francesca Regan Corrections: (The following items were deleted from the chart) : 14:25 LIPASE+LAB sent. mb9 EDMS 14:25 LIVER PROFILE+LAB sent. mb9 EDMS Chart Complete MTDD
--- NOTE | 2016-08-11 19:39 | EDDOCDS ---
Physician Documentation [facility] Name: Joseph Carranza Age: 66 yrs Sex: Male : 1950 Arrival Date: 08/09/2016 Time: 13:24 Bed 19 Private MD: Lennox Burr M.D. Disposition: 08/09/16 18:13 Discharged to Home/Self Care. Impression: Acute upper respiratory infection, unspecified, Abdominal and pelvic pain - Colitis. - Condition is Stable. - Discharge Instructions: Abdominal Pain, Adult, Upper Respiratory Infection, Adult. - Prescriptions for Cipro 500 mg Oral Tablet - take 1 tablet by ORAL route every 12 hours; 14 tablet. Flagyl 500 mg Oral Tablet - take 1 tablet by ORAL route every 8 hours for 7 days; 21 tablet. - Medication Reconciliation, Local Pharmacy Hours form. - Follow up: Lennox Burr; When: 2 - 3 days; Reason: Recheck today's complaints. Follow up: Xavi Pope; When: 2 - 3 days; Reason: Recheck today's complaints. - Problem is new. - Symptoms are unchanged. - Notes: You were seen in the ED for shortness of breath, cough and congestion. Chest Xray along with bloodwork showed no acute findings at this time. CT scan of the abdomen showed findings consistent with colitis - you will need further evaluation of this with Dr. Burr and Gastroenterology. Please call in the morning to make both of these appointments. Take the antibiotics as written. Return to the ED for any chest pain, trouble breathing, worsening abdominal pain, fever, inability to tolerate oral foods or liquids or any other concerns. Historical: - Allergies: no known allergies; - Home Meds: 1. lisinopril 10 mg Oral tab 1 tab once daily (Last dose: 08/09/2016 10:00) 2. simvastatin 10 mg Oral tab 1 tab once daily 3. Prozac 40 mg Oral cap 1 cap once daily 4. albuterol sulfate 90 mcg/actuation Inhl aepb 2 puffs every 4-6 hours as needed 5. albuterol sulfate 1.25 mg/3 mL Inhl nebu 3 mL 4 times per day - PMHx: Depression; Hypertension; High Cholesterol; COPD; - PSHx: bilateral Knees; Tonsillectomy; - Social history: Smoking status: Patient states former smoker of tobacco. No barriers to communication noted, The patient speaks fluent [place], Speaks appropriately for age. - Family history: No immediate family members are acutely ill. - : The pt / caregiver states he / she is not on anticoagulants. Home medication list is obtained from the patient. - Exposure Risk Screening:: None identified. Vital Signs: 08/09 13:26 BP 142 / 91; Pulse 104; Resp 20; Temp 97.4; Pulse Ox 96% ; Weight 90.72 kg / 200 lbs; cmb Height 6 ft. 3 in. (190.50 cm); Pain 7/10; 13:34 Resp 24; mlb1 16:07 Pulse 76 MON; Pulse Ox 94% ; mb9 16:07 BP 132 / 76 (auto/); mb9 16:09 Pulse 74 MON; Pulse Ox 94% ; mb9 16:09 BP 137 / 85 (auto/); mb9 16:39 Pulse 70 MON; Pulse Ox 94% ; mb9 16:39 BP 118 / 76 (auto/); mb9 17:09 Pulse 74 MON; Pulse Ox 92% ; mb9 17:09 BP 118 / 66 (auto/); mb9 13:26 Body Mass Index 25.00 (90.72 kg, 190.50 cm) cmb MDM: 13:54 -Blood Culture (Adults Only), peripheral from different site, or from device/port/PICC sd1 etc. if present ordered. 13:54 Binder Sorter/Pulse Ox/q 15 min VS ordered. sd1 13:54 IV Saline Lock ordered. sd1 13:54 Oxygen at 4L/Min NC or Home dosage ordered. sd1 13:54 Rhythm Strip to chart ordered. sd1 13:55 B-Type Natiuretic Peptide Ordered. EDMS 13:55 Basic Metabolic Profile Ordered. EDMS 13:55 CBC with Diff Ordered. EDMS 13:55 Cardiac Injury Profile Ordered. EDMS 13:55 Troponin Ordered. EDMS 13:55 -Blood Culture Ordered. EDMS 13:56 Chest, 1 View Ordered. EDMS 13:56 ECG WITH READING ER PHYS+CARDIAG ordered. EDMS 13:58 -Blood Culture (Adults Only), peripheral from different site, or from device/port/PICC jlf etc. if present complete. 14:00 BLOOD CULTURES Ordered. EDMS 14:08 CT ABD & PELVIS: IV and Oral Contrast Ordered. EDMS 14:26 Diatrizoate Meglumine & Sodium Liquid 10 ml PO once; mix in 290cc of water ordered. mb9 14:26 Diatrizoate Meglumine & Sodium Liquid 10 ml PO once; mix in 290cc of water ordered. mb9 14:29 LIPASE Ordered. EDMS 14:29 LIVER PROFILE Ordered. EDMS 14:59 CBC with Diff Reviewed. br1 15:19 Financial registration complete. gjb 15:24 [facility] Payment Agreement was scanned into [employer] and attached to record. gjb 16:09 LIVER PROFILE Reviewed. br1 16:09 B-Type Natiuretic Peptide Reviewed. br1 16:09 Basic Metabolic Profile Reviewed. br1 16:09 Cardiac Injury Profile Reviewed. br1 16:09 Troponin Reviewed. br1 16:09 LIPASE Reviewed. br1 17:05 Acetaminophen Tablet 650 mg PO once ordered. br1 17:59 REGULAR+DIET ordered. EDMS 18:11 Ciprofloxacin 500 mg PO once ordered. br1 18:11 metroNIDAZOLE 500 mg PO once ordered. br1 08/11 08:38 T-Sheet-- Draft Copy was scanned into [employer] and attached to record. gb Administered Medications: 08/09 14:30 Drug: Diatrizoate Meglumine & Sodium 10 ml [diatrizoate meglumine and diat.sodium 66 mb9 %-10 % oral solution (10 mL)] Route: PO; 15:05 Drug: Diatrizoate Meglumine & Sodium 10 ml [diatrizoate meglumine and diat.sodium 66 mb9 %-10 % oral solution (10 mL)] Route: PO; 17:36 Drug: Acetaminophen 650 mg [acetaminophen 325 mg tablet (2 tabs)] Route: PO; mb9 18:35 Drug: Ciprofloxacin 500 mg [ciprofloxacin 500 mg tablet (1 tabs)] Route: PO; mb9 18:35 Drug: metroNIDAZOLE 500 mg [metronidazole 500 mg tablet (1 tabs)] Route: PO; mb9 Signatures: Dispatcher [employer] EDMS Lucinda Tatum MD MD sd1 Elaine Flores, Reg Reg Alejandro Sethi, RN RN mlb1 Abilio Kaminski MD MD br1 Saúl Paiz, INSTANT PRINTER OPERATOR INSTANT PRINTER OPERATOR jlf Alejandro HerreraRN RN mb9 Francesca Regan [facility] The chart was reviewed and I authenticate all verbal orders and agree with the evaluation and treatment provided.Corrections: (The following items were deleted from the chart) 14: 14:08 LIVER PROFILE+LAB ordered. EDMS EDMS 14 14:08 LIPASE+LAB ordered. EDMS EDMS Attachments: 15:24 [facility] Payment Agreement gjumu 08/11 08:38 T-Sheet-- Draft Copy gb Chart Complete MTDD
--- NOTE | 2016-08-11 19:39 | EDDOCDS ---
Physician Documentation [facility] Name: Joseph Carranza Age: 66 yrs Sex: Male : 1950 Arrival Date: 08/09/2016 Time: 13:24 Bed 19 Private MD: Lennox Burr M.D. Disposition: 08/09/16 18:13 Discharged to Home/Self Care. Impression: Acute upper respiratory infection, unspecified, Abdominal and pelvic pain - Colitis. - Condition is Stable. - Discharge Instructions: Abdominal Pain, Adult, Upper Respiratory Infection, Adult. - Prescriptions for Cipro 500 mg Oral Tablet - take 1 tablet by ORAL route every 12 hours; 14 tablet. Flagyl 500 mg Oral Tablet - take 1 tablet by ORAL route every 8 hours for 7 days; 21 tablet. - Medication Reconciliation, Local Pharmacy Hours form. - Follow up: Lennox Burr; When: 2 - 3 days; Reason: Recheck today's complaints. Follow up: Xavi Pope; When: 2 - 3 days; Reason: Recheck today's complaints. - Problem is new. - Symptoms are unchanged. - Notes: You were seen in the ED for shortness of breath, cough and congestion. Chest Xray along with bloodwork showed no acute findings at this time. CT scan of the abdomen showed findings consistent with colitis - you will need further evaluation of this with Dr. Burr and Gastroenterology. Please call in the morning to make both of these appointments. Take the antibiotics as written. Return to the ED for any chest pain, trouble breathing, worsening abdominal pain, fever, inability to tolerate oral foods or liquids or any other concerns. Historical: - Allergies: no known allergies; - Home Meds: 1. lisinopril 10 mg Oral tab 1 tab once daily (Last dose: 08/09/2016 10:00) 2. simvastatin 10 mg Oral tab 1 tab once daily 3. Prozac 40 mg Oral cap 1 cap once daily 4. albuterol sulfate 90 mcg/actuation Inhl aepb 2 puffs every 4-6 hours as needed 5. albuterol sulfate 1.25 mg/3 mL Inhl nebu 3 mL 4 times per day - PMHx: Depression; Hypertension; High Cholesterol; COPD; - PSHx: bilateral Knees; Tonsillectomy; - Social history: Smoking status: Patient states former smoker of tobacco. No barriers to communication noted, The patient speaks fluent Spanish, Speaks appropriately for age. - Family history: No immediate family members are acutely ill. - : The pt / caregiver states he / she is not on anticoagulants. Home medication list is obtained from the patient. - Exposure Risk Screening:: None identified. Vital Signs: 08/09 13:26 BP 142 / 91; Pulse 104; Resp 20; Temp 97.4; Pulse Ox 96% ; Weight 90.72 kg / 200 lbs; cmb Height 6 ft. 3 in. (190.50 cm); Pain 7/10; 13:34 Resp 24; mlb1 16:07 Pulse 76 MON; Pulse Ox 94% ; mb9 16:07 BP 132 / 76 (auto/); mb9 16:09 Pulse 74 MON; Pulse Ox 94% ; mb9 16:09 BP 137 / 85 (auto/); mb9 16:39 Pulse 70 MON; Pulse Ox 94% ; mb9 16:39 BP 118 / 76 (auto/); mb9 17:09 Pulse 74 MON; Pulse Ox 92% ; mb9 17:09 BP 118 / 66 (auto/); mb9 13:26 Body Mass Index 25.00 (90.72 kg, 190.50 cm) cmb MDM: 13:54 -Blood Culture (Adults Only), peripheral from different site, or from device/port/PICC sd1 etc. if present ordered. 13:54 Environmental Officer/Pulse Ox/q 15 min VS ordered. sd1 13:54 IV Saline Lock ordered. sd1 13:54 Oxygen at 4L/Min NC or Home dosage ordered. sd1 13:54 Rhythm Strip to chart ordered. sd1 13:55 B-Type Natiuretic Peptide Ordered. EDMS 13:55 Basic Metabolic Profile Ordered. EDMS 13:55 CBC with Diff Ordered. EDMS 13:55 Cardiac Injury Profile Ordered. EDMS 13:55 Troponin Ordered. EDMS 13:55 -Blood Culture Ordered. EDMS 13:56 Chest, 1 View Ordered. EDMS 13:56 ECG WITH READING ER PHYS+CARDIAG ordered. EDMS 13:58 -Blood Culture (Adults Only), peripheral from different site, or from device/port/PICC jlf etc. if present complete. 14:00 BLOOD CULTURES Ordered. EDMS 14:08 CT ABD & PELVIS: IV and Oral Contrast Ordered. EDMS 14:26 Diatrizoate Meglumine & Sodium Liquid 10 ml PO once; mix in 290cc of water ordered. mb9 14:26 Diatrizoate Meglumine & Sodium Liquid 10 ml PO once; mix in 290cc of water ordered. mb9 14:29 LIPASE Ordered. EDMS 14:29 LIVER PROFILE Ordered. EDMS 14:59 CBC with Diff Reviewed. br1 15:19 Financial registration complete. gjb 15:24 [facility] Payment Agreement was scanned into [employer] and attached to record. gjb 16:09 LIVER PROFILE Reviewed. br1 16:09 B-Type Natiuretic Peptide Reviewed. br1 16:09 Basic Metabolic Profile Reviewed. br1 16:09 Cardiac Injury Profile Reviewed. br1 16:09 Troponin Reviewed. br1 16:09 LIPASE Reviewed. br1 17:05 Acetaminophen Tablet 650 mg PO once ordered. br1 17:59 REGULAR+DIET ordered. EDMS 18:11 Ciprofloxacin 500 mg PO once ordered. br1 18:11 metroNIDAZOLE 500 mg PO once ordered. br1 08/11 08:38 T-Sheet-- Draft Copy was scanned into [employer] and attached to record. gb Administered Medications: 08/09 14:30 Drug: Diatrizoate Meglumine & Sodium 10 ml [diatrizoate meglumine and diat.sodium 66 mb9 %-10 % oral solution (10 mL)] Route: PO; 15:05 Drug: Diatrizoate Meglumine & Sodium 10 ml [diatrizoate meglumine and diat.sodium 66 mb9 %-10 % oral solution (10 mL)] Route: PO; 17:36 Drug: Acetaminophen 650 mg [acetaminophen 325 mg tablet (2 tabs)] Route: PO; mb9 18:35 Drug: Ciprofloxacin 500 mg [ciprofloxacin 500 mg tablet (1 tabs)] Route: PO; mb9 18:35 Drug: metroNIDAZOLE 500 mg [metronidazole 500 mg tablet (1 tabs)] Route: PO; mb9 Signatures: Dispatcher [employer] EDMS Lucinda Tatum MD MD sd1 Elaine Flores, Reg Reg Alejandro Sethi, RN RN mlb1 Abilio Kaminski MD MD br1 Saúl Paiz, MISSION ANALYST MISSION ANALYST jlf Alejandro HerreraRN RN mb9 Francesca Regan [facility] The chart was reviewed and I authenticate all verbal orders and agree with the evaluation and treatment provided.Corrections: (The following items were deleted from the chart) 14: 14:08 LIVER PROFILE+LAB ordered. EDMS EDMS 14 14:08 LIPASE+LAB ordered. EDMS EDMS Attachments: 15:24 [facility] Payment Agreement gjumu 08/11 08:38 T-Sheet-- Draft Copy gb Chart Complete MTDD
--- NOTE | 2016-08-13 15:00 | EDDOCDS ---
Nurse's Notes [facility] Name: Joseph Carranza Age: 66 yrs Sex: Male : 1950 Arrival Date: 08/09/2016 Time: 13:24 Bed 19 Private MD: Lennox Burr M.D. Diagnosis: Acute upper respiratory infection, unspecified;Abdominal and pelvic pain-Colitis Presentation: 08/09 13:28 Presenting complaint: Patient states: SOB and productive cough began Sunday. Adult mlb1 Sepsis Screening: The patient does not have new or worsening altered mentation. Patient's respiratory rate is less than 22. Systolic blood pressure is greater than 100. Patient has a qSOFA score of 0- Negative Sepsis Screen. Suicide/Homicide risk assessment- the patient denies having any suicidal and/or homicidal ideations and does not present with any other emotional, behavioral or mental health complaints. 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 Transition of care: patient was not received from another setting of care. 13:28 Acuity: ASHOK Level 3 mlb1 13:28 Method Of Arrival: Walkin/Carried/Asstd mlb1 Triage Assessment: 13:32 General: Appears distressed, Behavior is appropriate for age, cooperative. Pain: mlb1 Location: low back area Pain currently is 7.5 out of 10 on a pain scale. Respiratory: Onset: The symptoms/episode began/occurred gradually, Airway is patent Respiratory effort is even, labored, Reports cough that is productive. Historical: - Allergies: no known allergies; - Home Meds: 1. lisinopril 10 mg Oral tab 1 tab once daily (Last dose: 08/09/2016 10:00) 2. simvastatin 10 mg Oral tab 1 tab once daily 3. Prozac 40 mg Oral cap 1 cap once daily 4. albuterol sulfate 90 mcg/actuation Inhl aepb 2 puffs every 4-6 hours as needed 5. albuterol sulfate 1.25 mg/3 mL Inhl nebu 3 mL 4 times per day - PMHx: Depression; Hypertension; High Cholesterol; COPD; - PSHx: bilateral Knees; Tonsillectomy; - Social history: Smoking status: Patient states former smoker of tobacco. No barriers to communication noted, The patient speaks fluent Tanzanian, Speaks appropriately for age. - Family history: No immediate family members are acutely ill. - : The pt / caregiver states he / she is not on anticoagulants. Home medication list is obtained from the patient. - Exposure Risk Screening:: None identified. Screenin:07 Screening information is obtained from the patient. Fall risk: No risks identified. mb9 Assistance ADL's: requires no assistance with activities of daily living. Abuse/DV Screen: The patient / caregiver reports he/she is: not in a situation that causes fear, pain or injury. Nutritional screening: No deficits noted. Advance Directives: There is no active DNR order. home support is adequate. Assessment: 13:46 General: Appears unkempt, Behavior is appropriate for age, fussy. Pain: Location: mb9 posterior cervical area and low back area Pain currently is 5 out of 10 on a pain scale. Neurological: Level of Consciousness is awake, alert, Oriented to person, place, time. Cardiovascular: Heart tones S1 S2 present Rhythm is sinus rhythm No ectopy. Respiratory: Airway is patent Respiratory effort is even, labored, Respiratory pattern is regular, symmetrical, Breath sounds are clear bilaterally. Reports shortness of breath cough that is. GI: Reports bloody stools pt reports bloody stools after a fall on Sunday. pt reports a history of internal hemorrhoids. Derm: pt has several healing wounds to his nose after a fall on Sunday. 16:07 Reassessment: Patient appears in no apparent distress at this time. Adult Sepsis mb9 Screening: The patient does not have new or worsening altered mentation. Patient's respiratory rate is less than 22. Systolic blood pressure is greater than 100. Patient has a qSOFA score of 0- Negative Sepsis Screen. General: Appears in no apparent distress, Behavior is appropriate for age, cooperative. Pain: Denies pain. Neurological: Level of Consciousness is awake, alert, Oriented to person, place, time. Respiratory: Airway is patent Respiratory effort is even, unlabored, Breath sounds are clear bilaterally. 17:36 Reassessment: Patient appears in no apparent distress at this time. Patient states mb9 symptoms have improved. General: Appears in no apparent distress, Behavior is appropriate for age, cooperative. Pain: Location: headache. Neurological: Level of Consciousness is awake, alert, Oriented to person, place, time. Respiratory: Airway is patent Respiratory effort is even, unlabored. 18:36 Reassessment: Patient appears in no apparent distress at this time. Patient states mb9 feeling better. Patient states symptoms have improved. Adult Sepsis Screening: The patient does not have new or worsening altered mentation. Patient's respiratory rate is less than 22. Systolic blood pressure is greater than 100. Patient has a qSOFA score of 0- Negative Sepsis Screen. General: Appears in no apparent distress, Behavior is appropriate for age, cooperative. Pain: Denies pain. Respiratory: Airway is patent Respiratory effort is even, unlabored. Vital Signs: 13:26 BP 142 / 91; Pulse 104; Resp 20; Temp 97.4; Pulse Ox 96% ; Weight 90.72 kg; Height 6 cmb ft. 3 in. (190.50 cm); Pain 7/10; 13:34 Resp 24; mlb1 16:07 Pulse 76 MON; Pulse Ox 94% ; mb9 16:07 BP 132 / 76 (auto/); mb9 16:09 Pulse 74 MON; Pulse Ox 94% ; mb9 16:09 BP 137 / 85 (auto/); mb9 16:39 Pulse 70 MON; Pulse Ox 94% ; mb9 16:39 BP 118 / 76 (auto/); mb9 17:09 Pulse 74 MON; Pulse Ox 92% ; mb9 17:09 BP 118 / 66 (auto/); mb9 13:26 Body Mass Index 25.00 (90.72 kg, 190.50 cm) cmb Vitals: 13:26 Log In Time: August 09, 2016 at 13:23. cmb ED Course: 13:25 Patient visited by Lizzie Hall. cmb 13:25 Patient moved to Waiting cmb 13:26 Lennox Burr is Private Physician. cmb 13:27 Patient moved to Pre RCE cmb 13:28 Patient visited by Alejandro Oliveros, RN. mlb1 13:29 Triage Initiated mlb1 13:33 Patient visited by Alejandro Oliveros, RN. mlb1 13:34 Patient moved to 19 mlb1 13:58 Abilio Kaminski MD is Attending Physician. br1 14:06 Patient visited by Abilio Kaminski MD. br1 14:19 EKG done. (by ED staff). Reviewed by Abilio Kaminski MD. jml1 14:20 Patient visited by Sergio Pyle. jml1 14:25 -Blood Culture Sent. mb9 14:25 B-Type Natiuretic Peptide Sent. mb9 14:25 Basic Metabolic Profile Sent. mb9 14:25 CBC with Diff Sent. mb9 14:25 Cardiac Injury Profile Sent. mb9 14:25 Troponin Sent. mb9 14:41 LIPASE Sent. mb9 14:41 LIVER PROFILE Sent. mb9 15:16 Patient visited by Sergio Pyle. jml1 15:24 [facility] Payment Agreement was scanned into [employer] and attached to record. gjb 16:07 Patient visited by Alejandro Herrera RN. mb9 16:07 The patient / caregiver is instructed regarding the plan of care and ED course. mb9 16:07 Inserted saline lock: 18 gauge in left antecubital area and blood collected. The mb9 patient tolerated the procedure well. 16:28 Patient visited by Saúl Paiz PCA. jlf 17:00 Patient visited by Saúl Paiz PCA. jlf 17:36 Patient visited by Alejandro Herrera RN. mb9 18:11 Lennox Burr is Referral Physician. br1 18:11 Xavi Pope is Referral Physician. br1 18:36 Discontinued IV lock intact, bleeding controlled, pressure dressing applied, No mb9 redness/swelling at site. No procedures done that require assistance. 19:14 CT ABD & PELVIS: IV and Oral Contrast Returned. EDMS 20:06 EKG-ADULT Returned. EDMS 22:32 Chest, 1 View Returned. EDMS 01 08:38 T-Sheet-- Draft Copy was scanned into [employer] and attached to record. gb Administered Medications: 08/09 14:30 Drug: Diatrizoate Meglumine & Sodium 10 ml [diatrizoate meglumine and diat.sodium 66 mb9 %-10 % oral solution (10 mL)] Route: PO; 15:05 Drug: Diatrizoate Meglumine & Sodium 10 ml [diatrizoate meglumine and diat.sodium 66 mb9 %-10 % oral solution (10 mL)] Route: PO; 17:36 Drug: Acetaminophen 650 mg [acetaminophen 325 mg tablet (2 tabs)] Route: PO; mb9 18:35 Drug: Ciprofloxacin 500 mg [ciprofloxacin 500 mg tablet (1 tabs)] Route: PO; mb9 18:35 Drug: metroNIDAZOLE 500 mg [metronidazole 500 mg tablet (1 tabs)] Route: PO; mb9 Order Results: Lab Order: -Blood Culture; SPEC'M 08/09/16 15:14 Test: BLOOD CULTURE; Value: No growth after 48 hours . All specimens observed; Status: F Test: BLOOD CULTURE; Value: for 5 days. Results final at that time.; Status: F Test: BLOOD CULTURE; Status: F Test: BLOOD CULTURE; Value: No growth after 24 hours . All specimens observed; Status: F Test: BLOOD CULTURE; Value: for 5 days. Results final at that time.; Status: F Test: BLOOD CULTURE; Value: No Growth after 72 hours. All specimens observed; Status: F Test: BLOOD CULTURE; Value: for 7 days. Results final at that time.; Status: F Lab Order: B-Type Natiuretic Peptide; SPEC'M 08/09/16 14:22 Test: BRAIN NATRIURETIC PEPTIDE; Value: 29.6; Range: <100; Units: PG/ML; Status: F Lab Order: Basic Metabolic Profile; SPEC'M 08/09/16 14:22 Test: GLUCOSE, FASTING; Value: 105; Range: 80-110; Units: MG/DL; Status: F Test: BLOOD UREA NITROGEN; Value: 15; Range: 7-18; Units: MG/DL; Status: F Test: CREATININE FOR GFR; Value: 0.86; Range: 0.70-1.30; Units: MG/DL; Status: F Test: GLOMERULAR FILTRATION RATE; Value: > 60.0; Range: >49; Status: F Test: SODIUM LEVEL; Value: 142; Range: 136-145; Units: MEQ/L; Status: F Test: POTASSIUM SERUM; Value: 3.9; Range: 3.5-5.1; Units: MEQ/L; Status: F Test: CHLORIDE LEVEL; Value: 105; Range: 98-107; Units: MEQ/L; Status: F Test: CARBON DIOXIDE LEVEL; Value: 28; Range: 21-32; Units: MEQ/L; Status: F Test: ANION GAP; Value: 9; Range: 8-16; Units: MEQ/L; Status: F Test: CALCIUM LEVEL; Value: 9.0; Range: 8.8-10.2; Units: MG/DL; Status: F Test Note: ; Units are mL/min/1.73 m2 Chronic Kidney Disease Staging per NKF: Stage I & II GFR >=60 Normal to Mildly Decreased Stage III GFR 30-59 Moderately Decreased Stage IV GFR 15-29 Severely Decreased Stage V GFR <15 Very Little GFR Left ESRD GFR <15 on ELECTRICIAN UNDERGROUND Lab Order: CBC with Diff; DARLYN 08/09/16 14:22 Test: WHITE BLOOD COUNT; Value: 9.7; Range: 4.0-10.0; Units: K/mm3; Status: F Test: RED BLOOD COUNT; Value: 4.74; Range: 4.30-6.10; Units: M/mm3; Status: F Test: HEMOGLOBIN; Value: 15.0; Range: 14.0-18.0; Units: g/dl; Status: F Test: HEMATOCRIT; Value: 45.6; Range: 42.0-52.0; Units: %; Status: F Test: MEAN CORPUSCULAR VOLUME; Value: 96.2; Range: 80.0-96.0; Abnormal: Above high normal; Units: fl; Status: F Test: MEAN CORPUSCULAR HEMOGLOBIN; Value: 31.6; Range: 27.0-33.0; Units: pg; Status: F Test: MEAN CORPUSCULAR HGB CONC; Value: 32.9; Range: 32.0-36.5; Units: g/dl; Status: F Test: RED CELL DISTRIBUTION WIDTH; Value: 13.0; Range: 11.5-14.5; Units: %; Status: F Test: PLATELET COUNT, AUTOMATED; Value: 226; Range: 150-450; Units: k/mm3; Status: F Test: NEUTROPHILS %; Value: 77.2; Range: 36.0-66.0; Abnormal: Above high normal; Units: %; Status: F Test: LYMPH %; Value: 12.4; Range: 24.0-44.0; Abnormal: Below low normal; Units: %; Status: F Test: MONO %; Value: 4.1; Range: 0.0-5.0; Units: %; Status: F Test: EOS %; Value: 4.7; Range: 0.0-3.0; Abnormal: Above high normal; Units: %; Status: F Test: BASO %; Value: 0.3; Range: 0.0-1.0; Units: %; Status: F Test: LARGE UNSTAINED CELL %; Value: 1.3; Range: 0.0-4.0; Units: %; Status: F Test: NEUTROPHILS #; Value: 7.5; Range: 1.8-7.7; Units: K/mm3; Status: F Test: LYMPH #; Value: 1.2; Range: 1.5-4.5; Abnormal: Below low normal; Units: K/mm3; Status: F Test: MONO #; Value: 0.4; Range: 0.0-0.8; Units: K/mm3; Status: F Test: EOS #; Value: 0.5; Range: 0.0-0.50; Units: K/mm3; Status: F Test: BASO #; Value: 0.0; Range: 0.0-0.2; Units: K/mm3; Status: F Test: LARGE UNSTAINED CELL #; Value: 0.1; Range: 0.0-0.4; Units: K/mm3; Status: F Lab Order: Cardiac Injury Profile; SPEC'M 08/09/16 14:22 Test: CPK CREATINE PHOSPHOKINASE; Value: 41; Range: 39-308; Units: U/L; Status: F Test: CK-MB VALUE MASS; Value: 1.2; Range: 0.0-3.6; Units: NG/ML; Status: F Test: MB/CK RELATIVE INDEX; Value: 2.92; Range: < OR =4; Status: F Test Note: ; DIAGNOSIS CRITERIA MMB ng/ml Relative Index (RI) NON-AMI < or = 5 N/A RIVERA ZONE > 5 < or = 4 AMI > 5 > 4 Lab Order: Troponin; SPEC'M 08/09/16 14:22 Test: TROPONIN I; Value: < 0.02; Range: < 0.10; Units: NG/ML; Status: F Test Note: ; Troponin I Reference Interval for [employer] Information LOCI: 99th Percentile= 0.00-0.045 ng/ml Risk Stratification: <= 0.10 ng/ml Decreased Risk for Adverse Clinical Events. 0.10-1.50 ng/ml Increased Risk for Adverse Clinical Events. Evaluation of additional criterion and/or repeat testing in 2-6 hours is suggested to rule out myocardial damage. >= 1.50 ng/ml Indicative of Myocardial Injury. Lab Order: BLOOD CULTURES; SPEC'M 08/09/16 14:22 Test: BLOOD CULTURE; Value: No growth after 48 hours . All specimens observed; Status: F Test: BLOOD CULTURE; Value: for 5 days. Results final at that time.; Status: F Test: BLOOD CULTURE; Status: F Test: BLOOD CULTURE; Value: No growth after 24 hours . All specimens observed; Status: F Test: BLOOD CULTURE; Value: for 5 days. Results final at that time.; Status: F Test: BLOOD CULTURE; Value: No Growth after 72 hours. All specimens observed; Status: F Test: BLOOD CULTURE; Value: for 7 days. Results final at that time.; Status: F Lab Order: LIPASE; SPEC' 08/09/16 14:22 Test: LIPASE; Value: 108; Range: 73-393; Units: U/L; Status: F Lab Order: LIVER PROFILE; SPEC' 08/09/16 14:22 Test: AST/SGOT; Value: 12; Range: 15-37; Abnormal: Below low normal; Units: U/L; Status: F Test: ALT/SGPT; Value: 13; Range: 12-78; Units: U/L; Status: F Test: ALKALINE PHOSPHATASE; Value: 62; Range: 45-117; Units: U/L; Status: F Test: BILIRUBIN,TOTAL; Value: 0.4; Range: 0.2-1.0; Units: MG/DL; Status: F Test: BILIRUBIN,DIRECT; Value: 0.2; Range: 0.0-0.2; Units: MG/DL; Status: F Test: TOTAL PROTEIN; Value: 6.9; Range: 6.4-8.2; Units: GM/DL; Status: F Test: ALBUMIN; Value: 3.3; Range: 3.2-5.2; Units: GM/DL; Status: F Test: ALBUMIN/GLOBULIN RATIO; Value: 0.92; Range: 1.00-1.93; Abnormal: Below low normal; Status: F Radiology Order: Chest, 1 View Test: Chest, 1 View REASON FOR EXAMINATION: Shortness of Breath; AP portable chest 08/09/2016; ; Indication: Shortness of breath; ; Comparison: PA and lateral chest 11/21/2013, CT chest 12/04/2013; ; Findings: Cardiomediastinal silhouette is normal. Stable blunting is seen; within the left costophrenic angle most compatible with pleural scarring. Small; amount of bibasilar fibrotic interstitial scarring is noted . Mild; hyperinflation and flattening of diaphragms are consistent with COPD. There is; mild thoracic dextroscoliosis and mild to moderate degenerative changes in; thoracic spine.; ; Impression; 1. COPD; mild bibasilar fibrotic interstitial scarring. Findings most; compatible with left basilar pleural scarring.; ; 2. Cardiomediastinal silhouette is within normal limits; ; 3. Mild thoracic dextroscoliosis. [id number] degenerative changes in; thoracic spine; ; ; Signed by; Kaitlynn Bailon MD 08/09/2016 09:26 P; Radiology Order: EKG-ADULT Test: EKG-ADULT REASON FOR EXAMINATION: Shortness of Breath; Stationary ECG Study; [facility] - ED; ; Test Date: 2016-08-09; Pat Name: JOSEPH CARRANZA Department:; Room: -; Gender: Clinical Rehabilitation Liaison: JT; : 1950 Requested By: Lucinda Tatum; Order Number: [id number] Reading MD: Lucinda Tatum; Measurements; Intervals [place]; Rate: 73 P: 74; [place]: 169 QRS: 71; QRSD: 108 T: 62; QT: 391; QTc: 434; Interpretive Statements; SINUS RHYTHM WITH SINUS ARRHYTHMIA; NSTTW ABNORMALITY; NO PRIOR FOR COMPARISON; Electronically Signed On 08-09-2016 20:03:06 EST by Lucinda Tatum; Radiology Order: CT ABD & PELVIS: IV and Oral Contrast Test: CT ABD & PELVIS: IV and Oral Contrast REASON FOR EXAMINATION: Diverticulitis; CT of the abdomen and pelvis with IV and oral contrast:; ; Indication: Diverticulitis.; Comparison: CT abdomen and pelvis 03/05.; ; Technique: After drinking two cups of oral contrast each containing 10 ml; gastrographin and 290 ml water, and IV injection of 100 ml Isovue 370 mg/ml, 3 mm; spiral axial sections were performed through abdomen and pelvis.; ; Findings: Fibroatelectatic changes are seen in the lower lobes bilaterally.; Additionally there are bullous changes in lung bases, left greater than right and; unchanged.; ; Liver without focal lesion. Spleen, pancreas, gallbladder, adrenal glands are; normal. Kidneys are without hydronephrosis or obstructing ureteral calculi; bilaterally. The stomach and small bowel are without obstruction. There is mural; thickening in the terminal ileum, in the base of cecum, cecum and second area of; mural thickening within the distal portion of the ascending colon, contiguous; with the hepatic flexure. There is extensive diverticulosis involving descending; and entire sigmoid colon. Abdominal aorta is of normal course and caliber. There; are atherosclerotic changes in the aorta and iliac arteries.; ; Bladder is contracted. Persistent prostatic hypertrophy with interval increase; in size and progression of small nodular focus within the prostate is seen with; extrinsic impression upon the inferior bladder. There are associated coarse; calcifications within the periphery of the nodular prosthetic component.; Prostate measures 4 cm AP by 5.5 cm transverse by 5 cm craniocaudal dimension.; There is no free air or ascites. The appendix is normal.; ; There are no lytic or blastic lesions of bone. Advanced degenerative disc; changes noted L4-5 and L5-S1 bilaterally.; ; Impression:; 1. Moderate mural thickening with skip areas seen within the terminal ileum,; base of cecum, ascending colon, and hepatic flexure. Differential diagnosis; includes colitis, which could be on the basis of infectious colitis, ischemic, or; inflammatory colitis. Recommend follow-up to resolution. There is no free; intraperitoneal air and there is no evidence of pneumatosis.; 2. Mild to moderate prostatic hypertrophy not significantly changed, with; extrinsic impression upon the inferior bladder, similar to prior.; 3. Appendix without inflammation.; 4. Severe/extensive sigmoid diverticulosis.; ; ; Case discussed with Dr. Kaminski in ED on 08/09/16 at 5 pm.; ; ; ; ; Unreviewed; Outcome: 18:13 Discharge ordered by Provider. br1 18:36 Discharge Assessment: Patient awake, alert and oriented x 3. No cognitive and/or mb9 functional deficits noted. Patient verbalized understanding of disposition instructions. patient administered narcotics - no. The following High Risk Discharge criteria are identified: None. Condition: good Condition: stable Condition: improved. Discharge instructions given to patient, Instructed on discharge instructions, follow up and referral plans. medication usage, Demonstrated understanding of instructions, medications, Pt was receptive of discharge instructions/ teaching. CT Study completed. Property :Personal belongings accompany Pt. 18:38 Patient left the ED. mb9 Signatures: Dispatcher [employer] EDMS Elaine Flores, Reg Reg Alejandro Sethi, RN RN mlb1 Abilio Kaminski MD MD br1 Sergio Pyle jml1 Lizzie Hall cmb Saúl Paiz, JEANNETTE CAR SEAT MAKER feliciaf Alejandro Herrera,RN RN mb9 Francesca Regan Corrections: (The following items were deleted from the chart) 14:29 14:25 LIPASE+LAB sent. 9 EDSC 14:29 14:25 LIVER PROFILE+LAB sent. [facility] EDSC Chart Complete MTDD
--- NOTE | 2016-08-13 15:00 | EDDOCDS ---
Physician Documentation [facility] Name: Joseph Carranza Age: 66 yrs Sex: Male : 1950 Arrival Date: 08/09/2016 Time: 13:24 Bed 19 Private MD: Lennox Burr M.D. Disposition: 08/09/16 18:13 Discharged to Home/Self Care. Impression: Acute upper respiratory infection, unspecified, Abdominal and pelvic pain - Colitis. - Condition is Stable. - Discharge Instructions: Abdominal Pain, Adult, Upper Respiratory Infection, Adult. - Prescriptions for Cipro 500 mg Oral Tablet - take 1 tablet by ORAL route every 12 hours; 14 tablet. Flagyl 500 mg Oral Tablet - take 1 tablet by ORAL route every 8 hours for 7 days; 21 tablet. - Medication Reconciliation, Local Pharmacy Hours form. - Follow up: Lennox Burr; When: 2 - 3 days; Reason: Recheck today's complaints. Follow up: Xavi Pope; When: 2 - 3 days; Reason: Recheck today's complaints. - Problem is new. - Symptoms are unchanged. - Notes: You were seen in the ED for shortness of breath, cough and congestion. Chest Xray along with bloodwork showed no acute findings at this time. CT scan of the abdomen showed findings consistent with colitis - you will need further evaluation of this with Dr. Burr and Gastroenterology. Please call in the morning to make both of these appointments. Take the antibiotics as written. Return to the ED for any chest pain, trouble breathing, worsening abdominal pain, fever, inability to tolerate oral foods or liquids or any other concerns. Historical: - Allergies: no known allergies; - Home Meds: 1. lisinopril 10 mg Oral tab 1 tab once daily (Last dose: 08/09/2016 10:00) 2. simvastatin 10 mg Oral tab 1 tab once daily 3. Prozac 40 mg Oral cap 1 cap once daily 4. albuterol sulfate 90 mcg/actuation Inhl aepb 2 puffs every 4-6 hours as needed 5. albuterol sulfate 1.25 mg/3 mL Inhl nebu 3 mL 4 times per day - PMHx: Depression; Hypertension; High Cholesterol; COPD; - PSHx: bilateral Knees; Tonsillectomy; - Social history: Smoking status: Patient states former smoker of tobacco. No barriers to communication noted, The patient speaks fluent Togolese, Speaks appropriately for age. - Family history: No immediate family members are acutely ill. - : The pt / caregiver states he / she is not on anticoagulants. Home medication list is obtained from the patient. - Exposure Risk Screening:: None identified. Vital Signs: 08/09 13:26 BP 142 / 91; Pulse 104; Resp 20; Temp 97.4; Pulse Ox 96% ; Weight 90.72 kg / 200 lbs; cmb Height 6 ft. 3 in. (190.50 cm); Pain 7/10; 13:34 Resp 24; mlb1 16:07 Pulse 76 MON; Pulse Ox 94% ; mb9 16:07 BP 132 / 76 (auto/); mb9 16:09 Pulse 74 MON; Pulse Ox 94% ; mb9 16:09 BP 137 / 85 (auto/); mb9 16:39 Pulse 70 MON; Pulse Ox 94% ; mb9 16:39 BP 118 / 76 (auto/); mb9 17:09 Pulse 74 MON; Pulse Ox 92% ; mb9 17:09 BP 118 / 66 (auto/); mb9 13:26 Body Mass Index 25.00 (90.72 kg, 190.50 cm) cmb MDM: 13:54 -Blood Culture (Adults Only), peripheral from different site, or from device/port/PICC sd1 etc. if present ordered. 13:54 Master Lay Out Specialist/Pulse Ox/q 15 min VS ordered. sd1 13:54 IV Saline Lock ordered. sd1 13:54 Oxygen at 4L/Min NC or Home dosage ordered. sd1 13:54 Rhythm Strip to chart ordered. sd1 13:55 B-Type Natiuretic Peptide Ordered. EDMS 13:55 Basic Metabolic Profile Ordered. EDMS 13:55 CBC with Diff Ordered. EDMS 13:55 Cardiac Injury Profile Ordered. EDMS 13:55 Troponin Ordered. EDMS 13:55 -Blood Culture Ordered. EDMS 13:56 Chest, 1 View Ordered. EDMS 13:56 ECG WITH READING ER PHYS+CARDIAG ordered. EDMS 13:58 -Blood Culture (Adults Only), peripheral from different site, or from device/port/PICC jlf etc. if present complete. 14:00 BLOOD CULTURES Ordered. EDMS 14:08 CT ABD & PELVIS: IV and Oral Contrast Ordered. EDMS 14:26 Diatrizoate Meglumine & Sodium Liquid 10 ml PO once; mix in 290cc of water ordered. mb9 14:26 Diatrizoate Meglumine & Sodium Liquid 10 ml PO once; mix in 290cc of water ordered. mb9 14:29 LIPASE Ordered. EDMS 14:29 LIVER PROFILE Ordered. EDMS 14:59 CBC with Diff Reviewed. br1 15:19 Financial registration complete. gjb 15:24 [facility] Payment Agreement was scanned into [employer] and attached to record. gjb 16:09 LIVER PROFILE Reviewed. br1 16:09 B-Type Natiuretic Peptide Reviewed. br1 16:09 Basic Metabolic Profile Reviewed. br1 16:09 Cardiac Injury Profile Reviewed. br1 16:09 Troponin Reviewed. br1 16:09 LIPASE Reviewed. br1 17:05 Acetaminophen Tablet 650 mg PO once ordered. br1 17:59 REGULAR+DIET ordered. EDMS 18:11 Ciprofloxacin 500 mg PO once ordered. br1 18:11 metroNIDAZOLE 500 mg PO once ordered. br1 08/11 08:38 T-Sheet-- Draft Copy was scanned into [employer] and attached to record. gb Administered Medications: 08/09 14:30 Drug: Diatrizoate Meglumine & Sodium 10 ml [diatrizoate meglumine and diat.sodium 66 mb9 %-10 % oral solution (10 mL)] Route: PO; 15:05 Drug: Diatrizoate Meglumine & Sodium 10 ml [diatrizoate meglumine and diat.sodium 66 mb9 %-10 % oral solution (10 mL)] Route: PO; 17:36 Drug: Acetaminophen 650 mg [acetaminophen 325 mg tablet (2 tabs)] Route: PO; mb9 18:35 Drug: Ciprofloxacin 500 mg [ciprofloxacin 500 mg tablet (1 tabs)] Route: PO; mb9 18:35 Drug: metroNIDAZOLE 500 mg [metronidazole 500 mg tablet (1 tabs)] Route: PO; mb9 Signatures: Dispatcher [employer] EDMS Lucinda Tatum MD MD sd1 Elaine Flores, Reg Reg Alejandro Sethi, RN RN mlb1 Abilio Kaminski MD MD br1 Saúl Paiz, SWATCH FOLDER SWATCH FOLDER jlf Alejandro HerreraRN RN mb9 Francesca Regan [facility] The chart was reviewed and I authenticate all verbal orders and agree with the evaluation and treatment provided.Corrections: (The following items were deleted from the chart) 14: 14:08 LIVER PROFILE+LAB ordered. EDMS EDMS 14 14:08 LIPASE+LAB ordered. EDMS EDMS Attachments: 15:24 [facility] Payment Agreement gjumu 08/11 08:38 T-Sheet-- Draft Copy gb Chart Complete MTDD
--- NOTE | 2016-08-13 15:00 | EDDOCDS ---
Physician Documentation [facility] Name: Joseph Carranza Age: 66 yrs Sex: Male : 1950 Arrival Date: 08/09/2016 Time: 13:24 Bed 19 Private MD: Lennox Burr M.D. Disposition: 08/09/16 18:13 Discharged to Home/Self Care. Impression: Acute upper respiratory infection, unspecified, Abdominal and pelvic pain - Colitis. - Condition is Stable. - Discharge Instructions: Abdominal Pain, Adult, Upper Respiratory Infection, Adult. - Prescriptions for Cipro 500 mg Oral Tablet - take 1 tablet by ORAL route every 12 hours; 14 tablet. Flagyl 500 mg Oral Tablet - take 1 tablet by ORAL route every 8 hours for 7 days; 21 tablet. - Medication Reconciliation, Local Pharmacy Hours form. - Follow up: Lennox Burr; When: 2 - 3 days; Reason: Recheck today's complaints. Follow up: Xavi Pope; When: 2 - 3 days; Reason: Recheck today's complaints. - Problem is new. - Symptoms are unchanged. - Notes: You were seen in the ED for shortness of breath, cough and congestion. Chest Xray along with bloodwork showed no acute findings at this time. CT scan of the abdomen showed findings consistent with colitis - you will need further evaluation of this with Dr. Burr and Gastroenterology. Please call in the morning to make both of these appointments. Take the antibiotics as written. Return to the ED for any chest pain, trouble breathing, worsening abdominal pain, fever, inability to tolerate oral foods or liquids or any other concerns. Historical: - Allergies: no known allergies; - Home Meds: 1. lisinopril 10 mg Oral tab 1 tab once daily (Last dose: 08/09/2016 10:00) 2. simvastatin 10 mg Oral tab 1 tab once daily 3. Prozac 40 mg Oral cap 1 cap once daily 4. albuterol sulfate 90 mcg/actuation Inhl aepb 2 puffs every 4-6 hours as needed 5. albuterol sulfate 1.25 mg/3 mL Inhl nebu 3 mL 4 times per day - PMHx: Depression; Hypertension; High Cholesterol; COPD; - PSHx: bilateral Knees; Tonsillectomy; - Social history: Smoking status: Patient states former smoker of tobacco. No barriers to communication noted, The patient speaks fluent Iranian, Speaks appropriately for age. - Family history: No immediate family members are acutely ill. - : The pt / caregiver states he / she is not on anticoagulants. Home medication list is obtained from the patient. - Exposure Risk Screening:: None identified. Vital Signs: 08/09 13:26 BP 142 / 91; Pulse 104; Resp 20; Temp 97.4; Pulse Ox 96% ; Weight 90.72 kg / 200 lbs; cmb Height 6 ft. 3 in. (190.50 cm); Pain 7/10; 13:34 Resp 24; mlb1 16:07 Pulse 76 MON; Pulse Ox 94% ; mb9 16:07 BP 132 / 76 (auto/); mb9 16:09 Pulse 74 MON; Pulse Ox 94% ; mb9 16:09 BP 137 / 85 (auto/); mb9 16:39 Pulse 70 MON; Pulse Ox 94% ; mb9 16:39 BP 118 / 76 (auto/); mb9 17:09 Pulse 74 MON; Pulse Ox 92% ; mb9 17:09 BP 118 / 66 (auto/); mb9 13:26 Body Mass Index 25.00 (90.72 kg, 190.50 cm) cmb MDM: 13:54 -Blood Culture (Adults Only), peripheral from different site, or from device/port/PICC sd1 etc. if present ordered. 13:54 Oil Process Stillman/Pulse Ox/q 15 min VS ordered. sd1 13:54 IV Saline Lock ordered. sd1 13:54 Oxygen at 4L/Min NC or Home dosage ordered. sd1 13:54 Rhythm Strip to chart ordered. sd1 13:55 B-Type Natiuretic Peptide Ordered. EDMS 13:55 Basic Metabolic Profile Ordered. EDMS 13:55 CBC with Diff Ordered. EDMS 13:55 Cardiac Injury Profile Ordered. EDMS 13:55 Troponin Ordered. EDMS 13:55 -Blood Culture Ordered. EDMS 13:56 Chest, 1 View Ordered. EDMS 13:56 ECG WITH READING ER PHYS+CARDIAG ordered. EDMS 13:58 -Blood Culture (Adults Only), peripheral from different site, or from device/port/PICC jlf etc. if present complete. 14:00 BLOOD CULTURES Ordered. EDMS 14:08 CT ABD & PELVIS: IV and Oral Contrast Ordered. EDMS 14:26 Diatrizoate Meglumine & Sodium Liquid 10 ml PO once; mix in 290cc of water ordered. mb9 14:26 Diatrizoate Meglumine & Sodium Liquid 10 ml PO once; mix in 290cc of water ordered. mb9 14:29 LIPASE Ordered. EDMS 14:29 LIVER PROFILE Ordered. EDMS 14:59 CBC with Diff Reviewed. br1 15:19 Financial registration complete. gjb 15:24 [facility] Payment Agreement was scanned into [employer] and attached to record. gjb 16:09 LIVER PROFILE Reviewed. br1 16:09 B-Type Natiuretic Peptide Reviewed. br1 16:09 Basic Metabolic Profile Reviewed. br1 16:09 Cardiac Injury Profile Reviewed. br1 16:09 Troponin Reviewed. br1 16:09 LIPASE Reviewed. br1 17:05 Acetaminophen Tablet 650 mg PO once ordered. br1 17:59 REGULAR+DIET ordered. EDMS 18:11 Ciprofloxacin 500 mg PO once ordered. br1 18:11 metroNIDAZOLE 500 mg PO once ordered. br1 08/11 08:38 T-Sheet-- Draft Copy was scanned into [employer] and attached to record. gb Administered Medications: 08/09 14:30 Drug: Diatrizoate Meglumine & Sodium 10 ml [diatrizoate meglumine and diat.sodium 66 mb9 %-10 % oral solution (10 mL)] Route: PO; 15:05 Drug: Diatrizoate Meglumine & Sodium 10 ml [diatrizoate meglumine and diat.sodium 66 mb9 %-10 % oral solution (10 mL)] Route: PO; 17:36 Drug: Acetaminophen 650 mg [acetaminophen 325 mg tablet (2 tabs)] Route: PO; mb9 18:35 Drug: Ciprofloxacin 500 mg [ciprofloxacin 500 mg tablet (1 tabs)] Route: PO; mb9 18:35 Drug: metroNIDAZOLE 500 mg [metronidazole 500 mg tablet (1 tabs)] Route: PO; mb9 Signatures: Dispatcher [employer] EDMS Lucinda Tatum MD MD sd1 Elaine Flores, Reg Reg Alejandro Sethi, RN RN mlb1 Abilio Kaminski MD MD br1 Salú Paiz, MULTI NEEDLE MACHINE OPERATOR MULTI NEEDLE MACHINE OPERATOR jlf Alejandro HerreraRN RN mb9 Francesca Regan [facility] The chart was reviewed and I authenticate all verbal orders and agree with the evaluation and treatment provided.Corrections: (The following items were deleted from the chart) 14: 14:08 LIVER PROFILE+LAB ordered. EDMS EDMS 14 14:08 LIPASE+LAB ordered. EDMS EDMS Attachments: 15:24 [facility] Payment Agreement gjumu 08/11 08:38 T-Sheet-- Draft Copy gb Chart Complete MTDD
--- NOTE | 2016-08-15 13:22 | EDDOCDS ---
Physician Documentation Name: Joseph Carranza Age: 66 yrs Sex: Male : 1950 Arrival Date: 08/09/2016 Time: 13:24 Bed 19 Private MD: Lennox Burr M.D. Disposition: 08/09/16 18:13 Discharged to Home/Self Care. Impression: Acute upper respiratory infection, unspecified, Abdominal and pelvic pain - Colitis. - Condition is Stable. - Discharge Instructions: Abdominal Pain, Adult, Upper Respiratory Infection, Adult. - Prescriptions for Cipro 500 mg Oral Tablet - take 1 tablet by ORAL route every 12 hours; 14 tablet. Flagyl 500 mg Oral Tablet - take 1 tablet by ORAL route every 8 hours for 7 days; 21 tablet. - Medication Reconciliation, Local Pharmacy Hours form. - Follow up: Lennox Burr; When: 2 - 3 days; Reason: Recheck today's complaints. Follow up: Xavi Melgar; When: 2 - 3 days; Reason: Recheck today's complaints. - Problem is new. - Symptoms are unchanged. - Notes: You were seen in the ED for shortness of breath, cough and congestion. Chest Xray along with bloodwork showed no acute findings at this time. CT scan of the abdomen showed findings consistent with colitis - you will need further evaluation of this with Dr. Burr and Gastroenterology. Please call in the morning to make both of these appointments. Take the antibiotics as written. Return to the ED for any chest pain, trouble breathing, worsening abdominal pain, fever, inability to tolerate oral foods or liquids or any other concerns. Historical: - Allergies: no known allergies; - Home Meds: 1. lisinopril 10 mg Oral tab 1 tab once daily (Last dose: 08/09/2016 10:00) 2. simvastatin 10 mg Oral tab 1 tab once daily 3. Prozac 40 mg Oral cap 1 cap once daily 4. albuterol sulfate 90 mcg/actuation Inhl aepb 2 puffs every 4-6 hours as needed 5. albuterol sulfate 1.25 mg/3 mL Inhl nebu 3 mL 4 times per day - PMHx: Depression; Hypertension; High Cholesterol; COPD; - PSHx: bilateral Knees; Tonsillectomy; - Social history: Smoking status: Patient states former smoker of tobacco. No barriers to communication noted, The patient speaks fluent Azeri, Speaks appropriately for age. - Family history: No immediate family members are acutely ill. - : The pt / caregiver states he / she is not on anticoagulants. Home medication list is obtained from the patient. - Exposure Risk Screening:: None identified. Vital Signs: 08/09 13:26 BP 142 / 91; Pulse 104; Resp 20; Temp 97.4; Pulse Ox 96% ; Weight 90.72 kg / 200 lbs; cmb Height 6 ft. 3 in. (190.50 cm); Pain 7/10; 13:34 Resp 24; mlb1 16:07 Pulse 76 MON; Pulse Ox 94% ; mb9 16:07 BP 132 / 76 (auto/); mb9 16:09 Pulse 74 MON; Pulse Ox 94% ; mb9 16:09 BP 137 / 85 (auto/); mb9 16:39 Pulse 70 MON; Pulse Ox 94% ; mb9 16:39 BP 118 / 76 (auto/); mb9 17:09 Pulse 74 MON; Pulse Ox 92% ; mb9 17:09 BP 118 / 66 (auto/); mb9 13:26 Body Mass Index 25.00 (90.72 kg, 190.50 cm) cmb MDM: 13:54 -Blood Culture (Adults Only), peripheral from different site, or from device/port/PICC sd1 etc. if present ordered. 13:54 Log Carrier Operator/Pulse Ox/q 15 min VS ordered. sd1 13:54 IV Saline Lock ordered. sd1 13:54 Oxygen at 4L/Min NC or Home dosage ordered. sd1 13:54 Rhythm Strip to chart ordered. sd1 13:55 B-Type Natiuretic Peptide Ordered. EDMS 13:55 Basic Metabolic Profile Ordered. EDMS 13:55 CBC with Diff Ordered. EDMS 13:55 Cardiac Injury Profile Ordered. EDMS 13:55 Troponin Ordered. EDMS 13:55 -Blood Culture Ordered. EDMS 13:56 Chest, 1 View Ordered. EDMS 13:56 ECG WITH READING ER PHYS+CARDIAG ordered. EDMS 13:58 -Blood Culture (Adults Only), peripheral from different site, or from device/port/PICC jlf etc. if present complete. 14:00 BLOOD CULTURES Ordered. EDMS 14:08 CT ABD & PELVIS: IV and Oral Contrast Ordered. EDMS 14:26 Diatrizoate Meglumine & Sodium Liquid 10 ml PO once; mix in 290cc of water ordered. mb9 14:26 Diatrizoate Meglumine & Sodium Liquid 10 ml PO once; mix in 290cc of water ordered. mb9 14:29 LIPASE Ordered. EDMS 14:29 LIVER PROFILE Ordered. EDMS 14:59 CBC with Diff Reviewed. br1 15:19 Financial registration complete. gjb 15:24 [facility] Payment Agreement was scanned into [employer] and attached to record. gjb 16:09 LIVER PROFILE Reviewed. br1 16:09 B-Type Natiuretic Peptide Reviewed. br1 16:09 Basic Metabolic Profile Reviewed. br1 16:09 Cardiac Injury Profile Reviewed. br1 16:09 Troponin Reviewed. br1 16:09 LIPASE Reviewed. br1 17:05 Acetaminophen Tablet 650 mg PO once ordered. br1 17:59 REGULAR+DIET ordered. EDMS 18:11 Ciprofloxacin 500 mg PO once ordered. br1 18:11 metroNIDAZOLE 500 mg PO once ordered. br1 08/11 08:38 T-Sheet-- Draft Copy was scanned into [employer] and attached to record. gb Administered Medications: 08/09 14:30 Drug: Diatrizoate Meglumine & Sodium 10 ml [diatrizoate meglumine and diat.sodium 66 mb9 %-10 % oral solution (10 mL)] Route: PO; 15:05 Drug: Diatrizoate Meglumine & Sodium 10 ml [diatrizoate meglumine and diat.sodium 66 mb9 %-10 % oral solution (10 mL)] Route: PO; 17:36 Drug: Acetaminophen 650 mg [acetaminophen 325 mg tablet (2 tabs)] Route: PO; mb9 18:35 Drug: Ciprofloxacin 500 mg [ciprofloxacin 500 mg tablet (1 tabs)] Route: PO; mb9 18:35 Drug: metroNIDAZOLE 500 mg [metronidazole 500 mg tablet (1 tabs)] Route: PO; mb9 Addendum: 08/15/2016 13:21 Radiology Callback: Radiology results faxed to primary care physician/provider. dr sagrario burr and dr melgar faxed formal report of ct abd for fu mlg. Signatures: Dispatcher [employer] EDLucinda Sawant MD MD sd1 Donald Roque MD MD ml Barnhardt, Elaine, Reg Reg gb Alejandro Oliveros, RN RN mlb1 Abilio Kaminski MD MD br1 Saúl Paiz, JEANNETTE GROUND OPERATIONS SUPERVISOR jlf Alejandro Herrera,RN RN mb9 Francesca Regan The chart was reviewed and I authenticate all verbal orders and agree with the evaluation and treatment provided.Corrections: (The following items were deleted from the chart) 08/09 14:29 14:08 LIVER PROFILE+LAB ordered. EDMS EDMS 14:08 LIPASE+LAB ordered. EDMS EDMS Attachments: 15:24 [facility] Payment Agreement gjb 08/11 08:38 T-Sheet-- Draft Copy gb MTDD
--- NOTE | 2016-08-15 13:22 | EDDOCDS ---
Physician Documentation [facility] Name: Joseph Carranza Age: 66 yrs Sex: Male : 1950 Arrival Date: 08/09/2016 Time: 13:24 Bed 19 Private MD: Lennox Burr M.D. Disposition: 08/09/16 18:13 Discharged to Home/Self Care. Impression: Acute upper respiratory infection, unspecified, Abdominal and pelvic pain - Colitis. - Condition is Stable. - Discharge Instructions: Abdominal Pain, Adult, Upper Respiratory Infection, Adult. - Prescriptions for Cipro 500 mg Oral Tablet - take 1 tablet by ORAL route every 12 hours; 14 tablet. Flagyl 500 mg Oral Tablet - take 1 tablet by ORAL route every 8 hours for 7 days; 21 tablet. - Medication Reconciliation, Local Pharmacy Hours form. - Follow up: Lennox Burr; When: 2 - 3 days; Reason: Recheck today's complaints. Follow up: Xavi Melgar; When: 2 - 3 days; Reason: Recheck today's complaints. - Problem is new. - Symptoms are unchanged. - Notes: You were seen in the ED for shortness of breath, cough and congestion. Chest Xray along with bloodwork showed no acute findings at this time. CT scan of the abdomen showed findings consistent with colitis - you will need further evaluation of this with Dr. uBrr and Gastroenterology. Please call in the morning to make both of these appointments. Take the antibiotics as written. Return to the ED for any chest pain, trouble breathing, worsening abdominal pain, fever, inability to tolerate oral foods or liquids or any other concerns. Historical: - Allergies: no known allergies; - Home Meds: 1. lisinopril 10 mg Oral tab 1 tab once daily (Last dose: 08/09/2016 10:00) 2. simvastatin 10 mg Oral tab 1 tab once daily 3. Prozac 40 mg Oral cap 1 cap once daily 4. albuterol sulfate 90 mcg/actuation Inhl aepb 2 puffs every 4-6 hours as needed 5. albuterol sulfate 1.25 mg/3 mL Inhl nebu 3 mL 4 times per day - PMHx: Depression; Hypertension; High Cholesterol; COPD; - PSHx: bilateral Knees; Tonsillectomy; - Social history: Smoking status: Patient states former smoker of tobacco. No barriers to communication noted, The patient speaks fluent Ukrainian, Speaks appropriately for age. - Family history: No immediate family members are acutely ill. - : The pt / caregiver states he / she is not on anticoagulants. Home medication list is obtained from the patient. - Exposure Risk Screening:: None identified. Vital Signs: 08/09 13:26 BP 142 / 91; Pulse 104; Resp 20; Temp 97.4; Pulse Ox 96% ; Weight 90.72 kg / 200 lbs; cmb Height 6 ft. 3 in. (190.50 cm); Pain 7/10; 13:34 Resp 24; mlb1 16:07 Pulse 76 MON; Pulse Ox 94% ; mb9 16:07 BP 132 / 76 (auto/); mb9 16:09 Pulse 74 MON; Pulse Ox 94% ; mb9 16:09 BP 137 / 85 (auto/); mb9 16:39 Pulse 70 MON; Pulse Ox 94% ; mb9 16:39 BP 118 / 76 (auto/); mb9 17:09 Pulse 74 MON; Pulse Ox 92% ; mb9 17:09 BP 118 / 66 (auto/); mb9 13:26 Body Mass Index 25.00 (90.72 kg, 190.50 cm) cmb MDM: 13:54 -Blood Culture (Adults Only), peripheral from different site, or from device/port/PICC sd1 etc. if present ordered. 13:54 Car Distributor/Pulse Ox/q 15 min VS ordered. sd1 13:54 IV Saline Lock ordered. sd1 13:54 Oxygen at 4L/Min NC or Home dosage ordered. sd1 13:54 Rhythm Strip to chart ordered. sd1 13:55 B-Type Natiuretic Peptide Ordered. EDMS 13:55 Basic Metabolic Profile Ordered. EDMS 13:55 CBC with Diff Ordered. EDMS 13:55 Cardiac Injury Profile Ordered. EDMS 13:55 Troponin Ordered. EDMS 13:55 -Blood Culture Ordered. EDMS 13:56 Chest, 1 View Ordered. EDMS 13:56 ECG WITH READING ER PHYS+CARDIAG ordered. EDMS 13:58 -Blood Culture (Adults Only), peripheral from different site, or from device/port/PICC jlf etc. if present complete. 14:00 BLOOD CULTURES Ordered. EDMS 14:08 CT ABD & PELVIS: IV and Oral Contrast Ordered. EDMS 14:26 Diatrizoate Meglumine & Sodium Liquid 10 ml PO once; mix in 290cc of water ordered. mb9 14:26 Diatrizoate Meglumine & Sodium Liquid 10 ml PO once; mix in 290cc of water ordered. mb9 14:29 LIPASE Ordered. EDMS 14:29 LIVER PROFILE Ordered. EDMS 14:59 CBC with Diff Reviewed. br1 15:19 Financial registration complete. gjb 15:24 [facility] Payment Agreement was scanned into [employer] and attached to record. gjb 16:09 LIVER PROFILE Reviewed. br1 16:09 B-Type Natiuretic Peptide Reviewed. br1 16:09 Basic Metabolic Profile Reviewed. br1 16:09 Cardiac Injury Profile Reviewed. br1 16:09 Troponin Reviewed. br1 16:09 LIPASE Reviewed. br1 17:05 Acetaminophen Tablet 650 mg PO once ordered. br1 17:59 REGULAR+DIET ordered. EDMS 18:11 Ciprofloxacin 500 mg PO once ordered. br1 18:11 metroNIDAZOLE 500 mg PO once ordered. br1 08/11 08:38 T-Sheet-- Draft Copy was scanned into [employer] and attached to record. gb Administered Medications: 08/09 14:30 Drug: Diatrizoate Meglumine & Sodium 10 ml [diatrizoate meglumine and diat.sodium 66 mb9 %-10 % oral solution (10 mL)] Route: PO; 15:05 Drug: Diatrizoate Meglumine & Sodium 10 ml [diatrizoate meglumine and diat.sodium 66 mb9 %-10 % oral solution (10 mL)] Route: PO; 17:36 Drug: Acetaminophen 650 mg [acetaminophen 325 mg tablet (2 tabs)] Route: PO; mb9 18:35 Drug: Ciprofloxacin 500 mg [ciprofloxacin 500 mg tablet (1 tabs)] Route: PO; mb9 18:35 Drug: metroNIDAZOLE 500 mg [metronidazole 500 mg tablet (1 tabs)] Route: PO; mb9 Addendum: 08/15/2016 13:21 Radiology Callback: Radiology results faxed to primary care physician/provider. dr sagrario burr and dr melgar faxed formal report of ct abd for fu mlg. Signatures: Dispatcher [employer] EDLucinda Sawant MD MD sd1 Donald Roque MD MD ml Barnhardt, Elaine, Reg Reg gb Alejandro Oliveros, RN RN mlb1 Abilio Kaminski MD MD br1 Saúl Paiz, JEANNETTE SOCIAL WORK ASSOCIATE jlf Alejandro Herrera,RN RN mb9 Francesca Regan The chart was reviewed and I authenticate all verbal orders and agree with the evaluation and treatment provided.Corrections: (The following items were deleted from the chart) 08/09 14:29 14:08 LIVER PROFILE+LAB ordered. EDMS EDMS 14:08 LIPASE+LAB ordered. EDMS EDMS Attachments: 15:24 [facility] Payment Agreement gjb 08/11 08:38 T-Sheet-- Draft Copy gb MTDD
--- NOTE | 2016-08-15 13:23 | EDDOCDS ---
Physician Documentation [facility] Name: Joseph Carranza Age: 66 yrs Sex: Male : 1950 Arrival Date: 08/09/2016 Time: 13:24 Bed 19 Private MD: Lennox Burr M.D. Disposition: 08/09/16 18:13 Discharged to Home/Self Care. Impression: Acute upper respiratory infection, unspecified, Abdominal and pelvic pain - Colitis. - Condition is Stable. - Discharge Instructions: Abdominal Pain, Adult, Upper Respiratory Infection, Adult. - Prescriptions for Cipro 500 mg Oral Tablet - take 1 tablet by ORAL route every 12 hours; 14 tablet. Flagyl 500 mg Oral Tablet - take 1 tablet by ORAL route every 8 hours for 7 days; 21 tablet. - Medication Reconciliation, Local Pharmacy Hours form. - Follow up: Lennox Burr; When: 2 - 3 days; Reason: Recheck today's complaints. Follow up: Xavi Melgar; When: 2 - 3 days; Reason: Recheck today's complaints. - Problem is new. - Symptoms are unchanged. - Notes: You were seen in the ED for shortness of breath, cough and congestion. Chest Xray along with bloodwork showed no acute findings at this time. CT scan of the abdomen showed findings consistent with colitis - you will need further evaluation of this with Dr. Burr and Gastroenterology. Please call in the morning to make both of these appointments. Take the antibiotics as written. Return to the ED for any chest pain, trouble breathing, worsening abdominal pain, fever, inability to tolerate oral foods or liquids or any other concerns. Historical: - Allergies: no known allergies; - Home Meds: 1. lisinopril 10 mg Oral tab 1 tab once daily (Last dose: 08/09/2016 10:00) 2. simvastatin 10 mg Oral tab 1 tab once daily 3. Prozac 40 mg Oral cap 1 cap once daily 4. albuterol sulfate 90 mcg/actuation Inhl aepb 2 puffs every 4-6 hours as needed 5. albuterol sulfate 1.25 mg/3 mL Inhl nebu 3 mL 4 times per day - PMHx: Depression; Hypertension; High Cholesterol; COPD; - PSHx: bilateral Knees; Tonsillectomy; - Social history: Smoking status: Patient states former smoker of tobacco. No barriers to communication noted, The patient speaks fluent Greenlandic, Speaks appropriately for age. - Family history: No immediate family members are acutely ill. - : The pt / caregiver states he / she is not on anticoagulants. Home medication list is obtained from the patient. - Exposure Risk Screening:: None identified. Vital Signs: 08/09 13:26 BP 142 / 91; Pulse 104; Resp 20; Temp 97.4; Pulse Ox 96% ; Weight 90.72 kg / 200 lbs; cmb Height 6 ft. 3 in. (190.50 cm); Pain 7/10; 13:34 Resp 24; mlb1 16:07 Pulse 76 MON; Pulse Ox 94% ; mb9 16:07 BP 132 / 76 (auto/); mb9 16:09 Pulse 74 MON; Pulse Ox 94% ; mb9 16:09 BP 137 / 85 (auto/); mb9 16:39 Pulse 70 MON; Pulse Ox 94% ; mb9 16:39 BP 118 / 76 (auto/); mb9 17:09 Pulse 74 MON; Pulse Ox 92% ; mb9 17:09 BP 118 / 66 (auto/); mb9 13:26 Body Mass Index 25.00 (90.72 kg, 190.50 cm) cmb MDM: 13:54 -Blood Culture (Adults Only), peripheral from different site, or from device/port/PICC sd1 etc. if present ordered. 13:54 Residence Manager/Pulse Ox/q 15 min VS ordered. sd1 13:54 IV Saline Lock ordered. sd1 13:54 Oxygen at 4L/Min NC or Home dosage ordered. sd1 13:54 Rhythm Strip to chart ordered. sd1 13:55 B-Type Natiuretic Peptide Ordered. EDMS 13:55 Basic Metabolic Profile Ordered. EDMS 13:55 CBC with Diff Ordered. EDMS 13:55 Cardiac Injury Profile Ordered. EDMS 13:55 Troponin Ordered. EDMS 13:55 -Blood Culture Ordered. EDMS 13:56 Chest, 1 View Ordered. EDMS 13:56 ECG WITH READING ER PHYS+CARDIAG ordered. EDMS 13:58 -Blood Culture (Adults Only), peripheral from different site, or from device/port/PICC jlf etc. if present complete. 14:00 BLOOD CULTURES Ordered. EDMS 14:08 CT ABD & PELVIS: IV and Oral Contrast Ordered. EDMS 14:26 Diatrizoate Meglumine & Sodium Liquid 10 ml PO once; mix in 290cc of water ordered. mb9 14:26 Diatrizoate Meglumine & Sodium Liquid 10 ml PO once; mix in 290cc of water ordered. mb9 14:29 LIPASE Ordered. EDMS 14:29 LIVER PROFILE Ordered. EDMS 14:59 CBC with Diff Reviewed. br1 15:19 Financial registration complete. gjb 15:24 [facility] Payment Agreement was scanned into [employer] and attached to record. gjb 16:09 LIVER PROFILE Reviewed. br1 16:09 B-Type Natiuretic Peptide Reviewed. br1 16:09 Basic Metabolic Profile Reviewed. br1 16:09 Cardiac Injury Profile Reviewed. br1 16:09 Troponin Reviewed. br1 16:09 LIPASE Reviewed. br1 17:05 Acetaminophen Tablet 650 mg PO once ordered. br1 17:59 REGULAR+DIET ordered. EDMS 18:11 Ciprofloxacin 500 mg PO once ordered. br1 18:11 metroNIDAZOLE 500 mg PO once ordered. br1 08/11 08:38 T-Sheet-- Draft Copy was scanned into [employer] and attached to record. gb Administered Medications: 08/09 14:30 Drug: Diatrizoate Meglumine & Sodium 10 ml [diatrizoate meglumine and diat.sodium 66 mb9 %-10 % oral solution (10 mL)] Route: PO; 15:05 Drug: Diatrizoate Meglumine & Sodium 10 ml [diatrizoate meglumine and diat.sodium 66 mb9 %-10 % oral solution (10 mL)] Route: PO; 17:36 Drug: Acetaminophen 650 mg [acetaminophen 325 mg tablet (2 tabs)] Route: PO; mb9 18:35 Drug: Ciprofloxacin 500 mg [ciprofloxacin 500 mg tablet (1 tabs)] Route: PO; mb9 18:35 Drug: metroNIDAZOLE 500 mg [metronidazole 500 mg tablet (1 tabs)] Route: PO; mb9 Addendum: 08/15/2016 13:21 Radiology Callback: Radiology results faxed to primary care physician/provider. dr sagrario burr and dr melgar faxed formal report of ct abd for fu mlg. Signatures: Dispatcher [employer] EDLucinda Sawant MD MD sd1 Donald Roque MD MD ml Barnhardt, Elaine, Reg Reg gb Alejandro Oliveros, RN RN mlb1 Abilio Kaminski MD MD br1 Saúl Paiz, JEANNETTE ACQUISITION MARKETING COORDINATOR jlf Alejandro Herrera,RN RN mb9 Francesca Regan The chart was reviewed and I authenticate all verbal orders and agree with the evaluation and treatment provided.Corrections: (The following items were deleted from the chart) 08/09 14:29 14:08 LIVER PROFILE+LAB ordered. EDMS EDMS 14:08 LIPASE+LAB ordered. EDMS EDMS Attachments: 15:24 [facility] Payment Agreement gjb 08/11 08:38 T-Sheet-- Draft Copy gb Chart Complete MTDD
--- NOTE | 2016-08-15 13:24 | EDDOCDS ---
Nurse's Notes [facility] Name: Joseph Carranza Age: 66 yrs Sex: Male : 1950 Arrival Date: 08/09/2016 Time: 13:24 Bed 19 Private MD: Lennox Burr M.D. Diagnosis: Acute upper respiratory infection, unspecified;Abdominal and pelvic pain-Colitis Presentation: 08/09 13:28 Presenting complaint: Patient states: SOB and productive cough began Sunday. Adult mlb1 Sepsis Screening: The patient does not have new or worsening altered mentation. Patient's respiratory rate is less than 22. Systolic blood pressure is greater than 100. Patient has a qSOFA score of 0- Negative Sepsis Screen. Suicide/Homicide risk assessment- the patient denies having any suicidal and/or homicidal ideations and does not present with any other emotional, behavioral or mental health complaints. Status: Patient is not a shared services manager or dependent. Transition of care: patient was not received from another setting of care. 13:28 Acuity: ASHOK Level 3 mlb1 13:28 Method Of Arrival: Walkin/Carried/Asstd mlb1 Triage Assessment: 13:32 General: Appears distressed, Behavior is appropriate for age, cooperative. Pain: mlb1 Location: low back area Pain currently is 7.5 out of 10 on a pain scale. Respiratory: Onset: The symptoms/episode began/occurred gradually, Airway is patent Respiratory effort is even, labored, Reports cough that is productive. Historical: - Allergies: no known allergies; - Home Meds: 1. lisinopril 10 mg Oral tab 1 tab once daily (Last dose: 08/09/2016 10:00) 2. simvastatin 10 mg Oral tab 1 tab once daily 3. Prozac 40 mg Oral cap 1 cap once daily 4. albuterol sulfate 90 mcg/actuation Inhl aepb 2 puffs every 4-6 hours as needed 5. albuterol sulfate 1.25 mg/3 mL Inhl nebu 3 mL 4 times per day - PMHx: Depression; Hypertension; High Cholesterol; COPD; - PSHx: bilateral Knees; Tonsillectomy; - Social history: Smoking status: Patient states former smoker of tobacco. No barriers to communication noted, The patient speaks fluent [place], Speaks appropriately for age. - Family history: No immediate family members are acutely ill. - : The pt / caregiver states he / she is not on anticoagulants. Home medication list is obtained from the patient. - Exposure Risk Screening:: None identified. Screenin:07 Screening information is obtained from the patient. Fall risk: No risks identified. mb9 Assistance ADL's: requires no assistance with activities of daily living. Abuse/DV Screen: The patient / caregiver reports he/she is: not in a situation that causes fear, pain or injury. Nutritional screening: No deficits noted. Advance Directives: There is no active DNR order. home support is adequate. Assessment: 13:46 General: Appears unkempt, Behavior is appropriate for age, fussy. Pain: Location: mb9 posterior cervical area and low back area Pain currently is 5 out of 10 on a pain scale. Neurological: Level of Consciousness is awake, alert, Oriented to person, place, time. Cardiovascular: Heart tones S1 S2 present Rhythm is sinus rhythm No ectopy. Respiratory: Airway is patent Respiratory effort is even, labored, Respiratory pattern is regular, symmetrical, Breath sounds are clear bilaterally. Reports shortness of breath cough that is. GI: Reports bloody stools pt reports bloody stools after a fall on Sunday. pt reports a history of internal hemorrhoids. Derm: pt has several healing wounds to his nose after a fall on Sunday. 16:07 Reassessment: Patient appears in no apparent distress at this time. Adult Sepsis mb9 Screening: The patient does not have new or worsening altered mentation. Patient's respiratory rate is less than 22. Systolic blood pressure is greater than 100. Patient has a qSOFA score of 0- Negative Sepsis Screen. General: Appears in no apparent distress, Behavior is appropriate for age, cooperative. Pain: Denies pain. Neurological: Level of Consciousness is awake, alert, Oriented to person, place, time. Respiratory: Airway is patent Respiratory effort is even, unlabored, Breath sounds are clear bilaterally. 17:36 Reassessment: Patient appears in no apparent distress at this time. Patient states mb9 symptoms have improved. General: Appears in no apparent distress, Behavior is appropriate for age, cooperative. Pain: Location: headache. Neurological: Level of Consciousness is awake, alert, Oriented to person, place, time. Respiratory: Airway is patent Respiratory effort is even, unlabored. 18:36 Reassessment: Patient appears in no apparent distress at this time. Patient states mb9 feeling better. Patient states symptoms have improved. Adult Sepsis Screening: The patient does not have new or worsening altered mentation. Patient's respiratory rate is less than 22. Systolic blood pressure is greater than 100. Patient has a qSOFA score of 0- Negative Sepsis Screen. General: Appears in no apparent distress, Behavior is appropriate for age, cooperative. Pain: Denies pain. Respiratory: Airway is patent Respiratory effort is even, unlabored. Vital Signs: 13:26 BP 142 / 91; Pulse 104; Resp 20; Temp 97.4; Pulse Ox 96% ; Weight 90.72 kg; Height 6 cmb ft. 3 in. (190.50 cm); Pain 7/10; 13:34 Resp 24; mlb1 16:07 Pulse 76 MON; Pulse Ox 94% ; mb9 16:07 BP 132 / 76 (auto/); mb9 16:09 Pulse 74 MON; Pulse Ox 94% ; mb9 16:09 BP 137 / 85 (auto/); mb9 16:39 Pulse 70 MON; Pulse Ox 94% ; mb9 16:39 BP 118 / 76 (auto/); mb9 17:09 Pulse 74 MON; Pulse Ox 92% ; mb9 17:09 BP 118 / 66 (auto/); mb9 13:26 Body Mass Index 25.00 (90.72 kg, 190.50 cm) cmb Vitals: 13:26 Log In Time: August 09, 2016 at 13:23. cmb ED Course: 13:25 Patient visited by Lizzie Hall. cmb 13:25 Patient moved to Waiting cmb 13:26 Lennox Burr is Private Physician. cmb 13:27 Patient moved to Pre RCE cmb 13:28 Patient visited by Alejandro Oliveros, RN. mlb1 13:29 Triage Initiated mlb1 13:33 Patient visited by Alejandro Oliveros, RN. mlb1 13:34 Patient moved to 19 mlb1 13:58 Abilio Kaminski MD is Attending Physician. br1 14:06 Patient visited by Abilio Kaminski MD. br1 14:19 EKG done. (by ED staff). Reviewed by Abilio Kaminski MD. jml1 14:20 Patient visited by Sergio Pyle. jml1 14:25 -Blood Culture Sent. mb9 14:25 B-Type Natiuretic Peptide Sent. mb9 14:25 Basic Metabolic Profile Sent. mb9 14:25 CBC with Diff Sent. mb9 14:25 Cardiac Injury Profile Sent. mb9 14:25 Troponin Sent. mb9 14:41 LIPASE Sent. mb9 14:41 LIVER PROFILE Sent. mb9 15:16 Patient visited by Sergio Pyle. jml1 15:24 [facility] Payment Agreement was scanned into [employer] and attached to record. gjb 16:07 Patient visited by Alejandro Herrera RN. mb9 16:07 The patient / caregiver is instructed regarding the plan of care and ED course. mb9 16:07 Inserted saline lock: 18 gauge in left antecubital area and blood collected. The mb9 patient tolerated the procedure well. 16:28 Patient visited by Saúl Paiz PCA. jlf 17:00 Patient visited by Saúl Paiz PCA. jlf 17:36 Patient visited by Alejandro Herrera RN. mb9 18:11 Lennox Burr is Referral Physician. br1 18:11 Xavi Pope is Referral Physician. br1 18:36 Discontinued IV lock intact, bleeding controlled, pressure dressing applied, No mb9 redness/swelling at site. No procedures done that require assistance. 19:14 CT ABD & PELVIS: IV and Oral Contrast Returned. EDMS 20:06 EKG-ADULT Returned. EDMS 22:32 Chest, 1 View Returned. EDMS 01 08:38 T-Sheet-- Draft Copy was scanned into [employer] and attached to record. gb Administered Medications: 08/09 14:30 Drug: Diatrizoate Meglumine & Sodium 10 ml [diatrizoate meglumine and diat.sodium 66 mb9 %-10 % oral solution (10 mL)] Route: PO; 15:05 Drug: Diatrizoate Meglumine & Sodium 10 ml [diatrizoate meglumine and diat.sodium 66 mb9 %-10 % oral solution (10 mL)] Route: PO; 17:36 Drug: Acetaminophen 650 mg [acetaminophen 325 mg tablet (2 tabs)] Route: PO; mb9 18:35 Drug: Ciprofloxacin 500 mg [ciprofloxacin 500 mg tablet (1 tabs)] Route: PO; mb9 18:35 Drug: metroNIDAZOLE 500 mg [metronidazole 500 mg tablet (1 tabs)] Route: PO; mb9 Order Results: Lab Order: -Blood Culture; SPEC'M 08/09/16 15:14 Test: BLOOD CULTURE; Value: No growth after 72 hours . All specimens observed; Status: F Test: BLOOD CULTURE; Value: for 5 days. Results final at that time.; Status: F Test: BLOOD CULTURE; Status: F Test: BLOOD CULTURE; Value: No growth after 48 hours . All specimens observed; Status: F Test: BLOOD CULTURE; Value: for 5 days. Results final at that time.; Status: F Test: BLOOD CULTURE; Status: F Test: BLOOD CULTURE; Value: No growth after 24 hours . All specimens observed; Status: F Test: BLOOD CULTURE; Value: for 5 days. Results final at that time.; Status: F Test: BLOOD CULTURE; Value: NO GROWTH AFTER 5 DAYS; Status: F Lab Order: B-Type Natiuretic Peptide; [facility] 08/09/16 14:22 Test: BRAIN NATRIURETIC PEPTIDE; Value: 29.6; Range: <100; Units: PG/ML; Status: F Lab Order: Basic Metabolic Profile; [facility] 08/09/16 14:22 Test: GLUCOSE, FASTING; Value: 105; Range: 80-110; Units: MG/DL; Status: F Test: BLOOD UREA NITROGEN; Value: 15; Range: 7-18; Units: MG/DL; Status: F Test: CREATININE FOR GFR; Value: 0.86; Range: 0.70-1.30; Units: MG/DL; Status: F Test: GLOMERULAR FILTRATION RATE; Value: > 60.0; Range: >49; Status: F Test: SODIUM LEVEL; Value: 142; Range: 136-145; Units: MEQ/L; Status: F Test: POTASSIUM SERUM; Value: 3.9; Range: 3.5-5.1; Units: MEQ/L; Status: F Test: CHLORIDE LEVEL; Value: 105; Range: 98-107; Units: MEQ/L; Status: F Test: CARBON DIOXIDE LEVEL; Value: 28; Range: 21-32; Units: MEQ/L; Status: F Test: ANION GAP; Value: 9; Range: 8-16; Units: MEQ/L; Status: F Test: CALCIUM LEVEL; Value: 9.0; Range: 8.8-10.2; Units: MG/DL; Status: F Test Note: ; Units are mL/min/1.73 m2 Chronic Kidney Disease Staging per NKF: Stage I & II GFR >=60 Normal to Mildly Decreased Stage III GFR 30-59 Moderately Decreased Stage IV GFR 15-29 Severely Decreased Stage V GFR <15 Very Little GFR Left ESRD GFR <15 on [facility] Lab Order: CBC with Diff; SPEC'M 08/09/16 14:22 Test: WHITE BLOOD COUNT; Value: 9.7; Range: 4.0-10.0; Units: K/mm3; Status: F Test: RED BLOOD COUNT; Value: 4.74; Range: 4.30-6.10; Units: M/mm3; Status: F Test: HEMOGLOBIN; Value: 15.0; Range: 14.0-18.0; Units: g/dl; Status: F Test: HEMATOCRIT; Value: 45.6; Range: 42.0-52.0; Units: %; Status: F Test: MEAN CORPUSCULAR VOLUME; Value: 96.2; Range: 80.0-96.0; Abnormal: Above high normal; Units: fl; Status: F Test: MEAN CORPUSCULAR HEMOGLOBIN; Value: 31.6; Range: 27.0-33.0; Units: pg; Status: F Test: MEAN CORPUSCULAR HGB CONC; Value: 32.9; Range: 32.0-36.5; Units: g/dl; Status: F Test: RED CELL DISTRIBUTION WIDTH; Value: 13.0; Range: 11.5-14.5; Units: %; Status: F Test: PLATELET COUNT, AUTOMATED; Value: 226; Range: 150-450; Units: k/mm3; Status: F Test: NEUTROPHILS %; Value: 77.2; Range: 36.0-66.0; Abnormal: Above high normal; Units: %; Status: F Test: LYMPH %; Value: 12.4; Range: 24.0-44.0; Abnormal: Below low normal; Units: %; Status: F Test: MONO %; Value: 4.1; Range: 0.0-5.0; Units: %; Status: F Test: EOS %; Value: 4.7; Range: 0.0-3.0; Abnormal: Above high normal; Units: %; Status: F Test: BASO %; Value: 0.3; Range: 0.0-1.0; Units: %; Status: F Test: LARGE UNSTAINED CELL %; Value: 1.3; Range: 0.0-4.0; Units: %; Status: F Test: NEUTROPHILS #; Value: 7.5; Range: 1.8-7.7; Units: K/mm3; Status: F Test: LYMPH #; Value: 1.2; Range: 1.5-4.5; Abnormal: Below low normal; Units: K/mm3; Status: F Test: MONO #; Value: 0.4; Range: 0.0-0.8; Units: K/mm3; Status: F Test: EOS #; Value: 0.5; Range: 0.0-0.50; Units: K/mm3; Status: F Test: BASO #; Value: 0.0; Range: 0.0-0.2; Units: K/mm3; Status: F Test: LARGE UNSTAINED CELL #; Value: 0.1; Range: 0.0-0.4; Units: K/mm3; Status: F Lab Order: Cardiac Injury Profile; SPEC'M 08/09/16 14:22 Test: CPK CREATINE PHOSPHOKINASE; Value: 41; Range: 39-308; Units: U/L; Status: F Test: CK-MB VALUE MASS; Value: 1.2; Range: 0.0-3.6; Units: NG/ML; Status: F Test: MB/CK RELATIVE INDEX; Value: 2.92; Range: < OR =4; Status: F Test Note: ; DIAGNOSIS CRITERIA MMB ng/ml Relative Index (RI) NON-AMI < or = 5 N/A RIVERA ZONE > 5 < or = 4 AMI > 5 > 4 Lab Order: Troponin; SPEC'M 08/09/16 14:22 Test: TROPONIN I; Value: < 0.02; Range: < 0.10; Units: NG/ML; Status: F Test Note: ; Troponin I Reference Interval for [place] LOCI: 99th Percentile= 0.00-0.045 ng/ml Risk Stratification: <= 0.10 ng/ml Decreased Risk for Adverse Clinical Events. 0.10-1.50 ng/ml Increased Risk for Adverse Clinical Events. Evaluation of additional criterion and/or repeat testing in 2-6 hours is suggested to rule out myocardial damage. >= 1.50 ng/ml Indicative of Myocardial Injury. Lab Order: BLOOD CULTURES; SPEC'M 08/09/16 14:22 Test: BLOOD CULTURE; Value: No growth after 72 hours . All specimens observed; Status: F Test: BLOOD CULTURE; Value: for 5 days. Results final at that time.; Status: F Test: BLOOD CULTURE; Status: F Test: BLOOD CULTURE; Value: No growth after 48 hours . All specimens observed; Status: F Test: BLOOD CULTURE; Value: for 5 days. Results final at that time.; Status: F Test: BLOOD CULTURE; Status: F Test: BLOOD CULTURE; Value: No growth after 24 hours . All specimens observed; Status: F Test: BLOOD CULTURE; Value: for 5 days. Results final at that time.; Status: F Test: BLOOD CULTURE; Value: NO GROWTH AFTER 5 DAYS; Status: F Lab Order: LIPASE; [facility] 08/09/16 14:22 Test: LIPASE; Value: 108; Range: 73-393; Units: U/L; Status: F Lab Order: LIVER PROFILE; SPEC'M 08/09/16 14:22 Test: AST/SGOT; Value: 12; Range: 15-37; Abnormal: Below low normal; Units: U/L; Status: F Test: ALT/SGPT; Value: 13; Range: 12-78; Units: U/L; Status: F Test: ALKALINE PHOSPHATASE; Value: 62; Range: 45-117; Units: U/L; Status: F Test: BILIRUBIN,TOTAL; Value: 0.4; Range: 0.2-1.0; Units: MG/DL; Status: F Test: BILIRUBIN,DIRECT; Value: 0.2; Range: 0.0-0.2; Units: MG/DL; Status: F Test: TOTAL PROTEIN; Value: 6.9; Range: 6.4-8.2; Units: GM/DL; Status: F Test: ALBUMIN; Value: 3.3; Range: 3.2-5.2; Units: GM/DL; Status: F Test: ALBUMIN/GLOBULIN RATIO; Value: 0.92; Range: 1.00-1.93; Abnormal: Below low normal; Status: F Radiology Order: Chest, 1 View Test: Chest, 1 View REASON FOR EXAMINATION: Shortness of Breath; AP portable chest 08/09/2016; ; Indication: Shortness of breath; ; Comparison: PA and lateral chest 11/21/2013, CT chest 12/04/2013; ; Findings: Cardiomediastinal silhouette is normal. Stable blunting is seen; within the left costophrenic angle most compatible with pleural scarring. Small; amount of bibasilar fibrotic interstitial scarring is noted . Mild; hyperinflation and flattening of diaphragms are consistent with COPD. There is; mild thoracic dextroscoliosis and mild to moderate degenerative changes in; thoracic spine.; ; Impression; 1. COPD; mild bibasilar fibrotic interstitial scarring. Findings most; compatible with left basilar pleural scarring.; ; 2. Cardiomediastinal silhouette is within normal limits; ; 3. Mild thoracic dextroscoliosis. 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; : 1950 Requested By: Lucinda Tatum; Order Number: [id number] Reading MD: Lucinda Tatum; Measurements; Intervals [place]; Rate: 73 P: 74; WV: 169 QRS: 71; QRSD: 108 T: 62; QT: 391; QTc: 434; Interpretive Statements; SINUS RHYTHM WITH SINUS ARRHYTHMIA; NSTTW ABNORMALITY; NO PRIOR FOR COMPARISON; Electronically Signed On 08-09-2016 20:03:06 EST by Lucinda Tatum; Radiology Order: CT ABD & PELVIS: IV and Oral Contrast Test: CT ABD & PELVIS: IV and Oral Contrast REASON FOR EXAMINATION: Diverticulitis; CT of the abdomen and pelvis with IV and oral contrast:; ; Indication: Diverticulitis.; ; Comparison: CT abdomen and pelvis 03/05.; ; Technique: After drinking two cups of oral contrast each containing 10 ml; gastrographin and 290 ml water, and IV injection of 100 ml Isovue 370 mg/ml, 3 mm; spiral axial sections were performed through abdomen and pelvis.; ; Findings: Fibroatelectatic changes are seen in the lower lobes bilaterally.; Additionally there are bullous changes in lung bases, left greater than right and; unchanged.; ; Liver without focal lesion. Spleen, pancreas, gallbladder, adrenal glands are; normal. Kidneys are without hydronephrosis or obstructing ureteral calculi; bilaterally. The stomach and small bowel are without obstruction. There is mural; thickening in the terminal ileum, in the base of cecum, cecum and second area of; mural thickening within the distal portion of the ascending colon, contiguous; with the hepatic flexure. There is extensive diverticulosis involving descending; and entire sigmoid colon. Abdominal aorta is of normal course and caliber. There; are atherosclerotic changes in the aorta and iliac arteries.; ; Bladder is contracted. Persistent prostatic hypertrophy with interval increase; in size and progression of small nodular focus within the prostate is seen with; extrinsic impression upon the inferior bladder. There are associated coarse; calcifications within the periphery of the nodular prosthetic component.; Prostate measures 4 cm AP by 5.5 cm transverse by 5 cm craniocaudal dimension.; There is no free air or ascites. The appendix is normal.; ; There are no lytic or blastic lesions of bone. Advanced degenerative disc; changes noted L4-5 and L5-S1 bilaterally.; ; Impression: 1. Moderate mural thickening with skip areas seen within the; terminal ileum, base of cecum, ascending colon, and hepatic flexure.; Differential diagnosis includes colitis, which could be on the basis of; infectious colitis, ischemic, or inflammatory colitis. Recommend follow-up to; resolution. There is no free intraperitoneal air and there is no evidence of; pneumatosis. 2. Mild to moderate prostatic hypertrophy not significantly changed,; with extrinsic impression upon the inferior bladder, similar to prior.3.; Appendix without inflammation.4. Severe/extensive sigmoid diverticulosis.; ; Case discussed with Dr. Kaminski in ED on 08/09/16 at 5 pm.; ; ; Signed by; Kaitlynn Bailon MD 08/13/2016 08:31 P; Outcome: 18:13 Discharge ordered by Provider. br1 18:36 Discharge Assessment: Patient awake, alert and oriented x 3. No cognitive and/or mb9 functional deficits noted. Patient verbalized understanding of disposition instructions. patient administered narcotics - no. The following High Risk Discharge criteria are identified: None. Condition: good Condition: stable Condition: improved. Discharge instructions given to patient, Instructed on discharge instructions, follow up and referral plans. medication usage, Demonstrated understanding of instructions, medications, Pt was receptive of discharge instructions/ teaching. CT Study completed. Property :Personal belongings accompany Pt. 18:38 Patient left the ED. mb9 Signatures: Dispatcher [employer] EDMS Elaine Flores, Reg Reg gb Alejandro Oliveros, RN RN mlb1 Abilio Kaminski MD MD br1 Sergio Pyle [place] cmSaúl Thurston, JEANNETTE LANGUAGE INTERPRETER feliciaf Alejandro Herrera,RN RN mb9 Francesca Regan Corrections: (The following items were deleted from the chart) 14:29 14:25 LIPASE+LAB sent. mb9 EDMS 14:29 14:25 LIVER PROFILE+LAB sent. mb9 EDMS Chart Complete MTDD
--- NOTE | 2016-08-15 13:25 | EDDOCDS ---
Physician Documentation [facility] Name: Joseph Carranza Age: 66 yrs Sex: Male : 1950 Arrival Date: 08/09/2016 Time: 13:24 Bed 19 Private MD: Lennox Burr M.D. Disposition: 08/09/16 18:13 Discharged to Home/Self Care. Impression: Acute upper respiratory infection, unspecified, Abdominal and pelvic pain - Colitis. - Condition is Stable. - Discharge Instructions: Abdominal Pain, Adult, Upper Respiratory Infection, Adult. - Prescriptions for Cipro 500 mg Oral Tablet - take 1 tablet by ORAL route every 12 hours; 14 tablet. Flagyl 500 mg Oral Tablet - take 1 tablet by ORAL route every 8 hours for 7 days; 21 tablet. - Medication Reconciliation, Local Pharmacy Hours form. - Follow up: Lennox Burr; When: 2 - 3 days; Reason: Recheck today's complaints. Follow up: Xavi Melgar; When: 2 - 3 days; Reason: Recheck today's complaints. - Problem is new. - Symptoms are unchanged. - Notes: You were seen in the ED for shortness of breath, cough and congestion. Chest Xray along with bloodwork showed no acute findings at this time. CT scan of the abdomen showed findings consistent with colitis - you will need further evaluation of this with Dr. Burr and Gastroenterology. Please call in the morning to make both of these appointments. Take the antibiotics as written. Return to the ED for any chest pain, trouble breathing, worsening abdominal pain, fever, inability to tolerate oral foods or liquids or any other concerns. Historical: - Allergies: no known allergies; - Home Meds: 1. lisinopril 10 mg Oral tab 1 tab once daily (Last dose: 08/09/2016 10:00) 2. simvastatin 10 mg Oral tab 1 tab once daily 3. Prozac 40 mg Oral cap 1 cap once daily 4. albuterol sulfate 90 mcg/actuation Inhl aepb 2 puffs every 4-6 hours as needed 5. albuterol sulfate 1.25 mg/3 mL Inhl nebu 3 mL 4 times per day - PMHx: Depression; Hypertension; High Cholesterol; COPD; - PSHx: bilateral Knees; Tonsillectomy; - Social history: Smoking status: Patient states former smoker of tobacco. No barriers to communication noted, The patient speaks fluent Spanish, Speaks appropriately for age. - Family history: No immediate family members are acutely ill. - : The pt / caregiver states he / she is not on anticoagulants. Home medication list is obtained from the patient. - Exposure Risk Screening:: None identified. Vital Signs: 08/09 13:26 BP 142 / 91; Pulse 104; Resp 20; Temp 97.4; Pulse Ox 96% ; Weight 90.72 kg / 200 lbs; cmb Height 6 ft. 3 in. (190.50 cm); Pain 7/10; 13:34 Resp 24; mlb1 16:07 Pulse 76 MON; Pulse Ox 94% ; mb9 16:07 BP 132 / 76 (auto/); mb9 16:09 Pulse 74 MON; Pulse Ox 94% ; mb9 16:09 BP 137 / 85 (auto/); mb9 16:39 Pulse 70 MON; Pulse Ox 94% ; mb9 16:39 BP 118 / 76 (auto/); mb9 17:09 Pulse 74 MON; Pulse Ox 92% ; mb9 17:09 BP 118 / 66 (auto/); mb9 13:26 Body Mass Index 25.00 (90.72 kg, 190.50 cm) cmb MDM: 13:54 -Blood Culture (Adults Only), peripheral from different site, or from device/port/PICC sd1 etc. if present ordered. 13:54 Area Captain/Pulse Ox/q 15 min VS ordered. sd1 13:54 IV Saline Lock ordered. sd1 13:54 Oxygen at 4L/Min NC or Home dosage ordered. sd1 13:54 Rhythm Strip to chart ordered. sd1 13:55 B-Type Natiuretic Peptide Ordered. EDMS 13:55 Basic Metabolic Profile Ordered. EDMS 13:55 CBC with Diff Ordered. EDMS 13:55 Cardiac Injury Profile Ordered. EDMS 13:55 Troponin Ordered. EDMS 13:55 -Blood Culture Ordered. EDMS 13:56 Chest, 1 View Ordered. EDMS 13:56 ECG WITH READING ER PHYS+CARDIAG ordered. EDMS 13:58 -Blood Culture (Adults Only), peripheral from different site, or from device/port/PICC jlf etc. if present complete. 14:00 BLOOD CULTURES Ordered. EDMS 14:08 CT ABD & PELVIS: IV and Oral Contrast Ordered. EDMS 14:26 Diatrizoate Meglumine & Sodium Liquid 10 ml PO once; mix in 290cc of water ordered. mb9 14:26 Diatrizoate Meglumine & Sodium Liquid 10 ml PO once; mix in 290cc of water ordered. mb9 14:29 LIPASE Ordered. EDMS 14:29 LIVER PROFILE Ordered. EDMS 14:59 CBC with Diff Reviewed. br1 15:19 Financial registration complete. gjb 15:24 [facility] Payment Agreement was scanned into [email or web address] and attached to record. gjb 16:09 LIVER PROFILE Reviewed. br1 16:09 B-Type Natiuretic Peptide Reviewed. br1 16:09 Basic Metabolic Profile Reviewed. br1 16:09 Cardiac Injury Profile Reviewed. br1 16:09 Troponin Reviewed. br1 16:09 LIPASE Reviewed. br1 17:05 Acetaminophen Tablet 650 mg PO once ordered. br1 17:59 REGULAR+DIET ordered. EDMS 18:11 Ciprofloxacin 500 mg PO once ordered. br1 18:11 metroNIDAZOLE 500 mg PO once ordered. br1 08/11 08:38 T-Sheet-- Draft Copy was scanned into [email or web address] and attached to record. gb Administered Medications: 08/09 14:30 Drug: Diatrizoate Meglumine & Sodium 10 ml [diatrizoate meglumine and diat.sodium 66 mb9 %-10 % oral solution (10 mL)] Route: PO; 15:05 Drug: Diatrizoate Meglumine & Sodium 10 ml [diatrizoate meglumine and diat.sodium 66 mb9 %-10 % oral solution (10 mL)] Route: PO; 17:36 Drug: Acetaminophen 650 mg [acetaminophen 325 mg tablet (2 tabs)] Route: PO; mb9 18:35 Drug: Ciprofloxacin 500 mg [ciprofloxacin 500 mg tablet (1 tabs)] Route: PO; mb9 18:35 Drug: metroNIDAZOLE 500 mg [metronidazole 500 mg tablet (1 tabs)] Route: PO; mb9 Addendum: 08/15/2016 13:21 Radiology Callback: Radiology results faxed to primary care physician/provider. dr sagrario burr and dr melgar faxed formal report of ct abd for fu mlg. Signatures: Dispatcher [employer] EDLucinda Sawant MD MD sd1 Donald Roque MD MD ml Barnhardt, Elaine, Reg Reg gb Alejandro Oliveros, RN RN mlb1 Abilio Kaminski MD MD br1 Saúl Paiz, JEANNETTE TRANSFORMER STOCK CLERK jlf Alejandro Herrera,RN RN mb9 Francesca Regan The chart was reviewed and I authenticate all verbal orders and agree with the evaluation and treatment provided.Corrections: (The following items were deleted from the chart) 08/09 14:29 14:08 LIVER PROFILE+LAB ordered. EDMS EDMS 14:08 LIPASE+LAB ordered. EDMS EDMS Attachments: 15:24 [facility] Payment Agreement gjb 08/11 08:38 T-Sheet-- Draft Copy gb Chart Complete MTDD
== END 2016-08-09 18:38 | disposition home or self-care (01) ==
LOC: M ED 13:24
DX: J06.9 Acute upper respiratory infection, unspecified (principal); K52.9 Noninfective gastroenteritis and colitis, unspecified; I10 Essential (primary) hypertension; J44.9 Chronic obstructive pulmonary disease, unspecified; E78.5 Hyperlipidemia, unspecified; F32.9 Major depressive disorder, single episode, unspecified; Z87.891 Personal history of nicotine dependence; Z79.899 Other long term (current) drug therapy
CPT/HCPCS: 36415; 71010; 74177; 80048; 80076; 82550; 82553; 83690; 83880; 84484; 85025; 87040; 93005; 93041; 99285; Q9963; Q9967

== ENCOUNTER → 2016-09-14 | Outpatient (CLI) | payer MEDICARE, MEDICAID ==
[~2016-09-14] VITALS: Ht 190.5 cm; Wt 93.0 kg
[~2016-09-14] MED LIST: CLAR10CA3 PO; FLUO40CA PO; FLUT11IN INH; LIDOCAINE 2% INJ 100 MG/5 ML SDV (FOR ANES.) As Ordered ONE; LISI10TA4 PO; PROPOFOL 200 MG/20 ML VIAL As Ordered ONE; SIMV20TA2 PO
--- NOTE | 2016-09-14 13:15 | ROOR ---
Patient Name: Joseph Carranza Procedure Date: 09/14/2016 12:52 PM Date of : 1950 Age: 66 Room: [facility] Gender: Male Note Status: Finalized Procedure: Upper GI endoscopy Indications: Generalized abdominal pain Providers: Víctor Hills Jr, MD Referring MD: Lennox Burr MD Requesting Provider: Medicines: Propofol per Anesthesia Complications: No immediate complications. Procedure: Pre-Anesthesia Assessment: - Prior to the procedure, a History and Physical was performed, and patient medications and allergies were reviewed. The patient is competent. The risks and benefits of the procedure and the sedation options and risks were discussed with the patient. All questions were answered and informed consent was obtained. Patient identification and proposed procedure were verified by the physician and the nurse in the pre-procedure area and in the procedure room. Mental Status Examination: alert and oriented. Airway Examination: normal oropharyngeal airway and neck mobility. Respiratory Examination: clear to auscultation. CV Examination: normal. ASA Grade Assessment: II - A patient with mild systemic disease. After reviewing the risks and benefits, the patient was deemed in satisfactory condition to undergo the procedure. The anesthesia plan was to use moderate sedation / analgesia (conscious sedation). Immediately prior to administration of medications, the patient was re-assessed for adequacy to receive sedatives. The heart rate, respiratory rate, oxygen saturations, blood pressure, adequacy of pulmonary ventilation, and response to care were monitored throughout the procedure. The physical status of the patient was re-assessed after the procedure. The Endoscope was introduced through the mouth, and advanced to the second part of duodenum. The upper GI endoscopy was accomplished without difficulty. The patient tolerated the procedure well. Findings: The upper third of the esophagus and distal esophagus were normal. Grade I varices were found in the middle third of the esophagus. The cardia, gastric fundus and gastric body were normal. Patchy mildly erythematous mucosa without bleeding was found in the gastric antrum and in the prepyloric region of the stomach. Biopsies were taken with a cold forceps for histology. The second portion of the duodenum was normal. Biopsies for histology were taken with a cold forceps for evaluation of celiac disease. Scattered moderate inflammation characterized by congestion (edema), erythema, friability and granularity was found in the first portion of the duodenum. Impression: - Normal upper third of esophagus and distal esophagus. - Grade I esophageal varices. - Normal cardia, gastric fundus and gastric body. - Erythematous mucosa in the antrum and prepyloric region of the stomach. Biopsied. - Normal second portion of the duodenum. Biopsied. - Duodenitis. Recommendation: - Discharge patient to home (ambulatory). - Return to my office in 2 weeks. Víctor Hills MD Víctor Hills Jr, MD 09/14/2016 1:15:25 PM This report has been signed electronically. Number of Addenda: 0 Note Initiated On: 09/14/2016 12:52 PM Estimated Blood Loss: Estimated blood loss: none.
--- NOTE | 2016-09-14 13:42 | ROOR ---
Patient Name: Joseph Carranza Procedure Date: 09/14/2016 12:54 PM Date of : 1950 Age: 66 Room: [facility] Gender: Male Note Status: Finalized Procedure: Colonoscopy Indications: Chronic diarrhea Providers: Víctor Hills Jr, MD Referring MD: Lennox Burr MD Requesting Provider: Medicines: Propofol per Anesthesia Complications: No immediate complications. Procedure: Pre-Anesthesia Assessment: - Prior to the procedure, a History and Physical was performed, and patient medications and allergies were reviewed. The patient is competent. The risks and benefits of the procedure and the sedation options and risks were discussed with the patient. All questions were answered and informed consent was obtained. Patient identification and proposed procedure were verified by the physician and the nurse in the pre-procedure area and in the procedure room. Mental Status Examination: alert and oriented. Airway Examination: normal oropharyngeal airway and neck mobility. Respiratory Examination: clear to auscultation. CV Examination: normal. ASA Grade Assessment: II - A patient with mild systemic disease. After reviewing the risks and benefits, the patient was deemed in satisfactory condition to undergo the procedure. The anesthesia plan was to use moderate sedation / analgesia (conscious sedation). Immediately prior to administration of medications, the patient was re-assessed for adequacy to receive sedatives. The heart rate, respiratory rate, oxygen saturations, blood pressure, adequacy of pulmonary ventilation, and response to care were monitored throughout the procedure. The physical status of the patient was re-assessed after the procedure. The Colonoscope was introduced through the anus and advanced to the cecum, identified by appendiceal orifice and ileocecal valve. The colonoscopy was performed with moderate difficulty due to poor bowel prep. Successful completion of the procedure was aided by lavage. The patient tolerated the procedure well. Findings: The perianal exam findings include non-thrombosed internal hemorrhoids, internal hemorrhoids that prolapse with straining, but spontaneously regress to the resting position (Grade II) and internal hemorrhoids that prolapse with straining, but require manual replacement into the anal canal (Grade III). Multiple small and large-mouthed diverticula were found in the sigmoid colon. A medium polyp was found in the ileocecal valve. The polyp was sessile. The polyp was removed with a hot snare. Polyp resection was incomplete, and the resected tissue was partially retrieved. Fulguration to ablate the lesion remnants by hot biopsy forceps was successful. The rectum, recto-sigmoid colon, descending colon, transverse colon and ascending colon appeared normal. Impression: - Non-thrombosed internal hemorrhoids, internal hemorrhoids that prolapse with straining, but spontaneously regress to the resting position (Grade II) and internal hemorrhoids that prolapse with straining, but require manual replacement into the anal canal (Grade III) found on perianal exam. - Diverticulosis in the sigmoid colon. - One medium polyp at the ileocecal valve, removed with a hot snare. Polyp resection was incomplete, and the resected tissue was partially retrieved. Treated with hot biopsy forceps. - The rectum, recto-sigmoid colon, descending colon, transverse colon and ascending colon are normal. Recommendation: - Discharge patient to home (ambulatory). - Return to my office as previously scheduled. - Repeat colonoscopy in 1 year for surveillance. Víctor Hills MD Víctor Hills Jr, MD 09/14/2016 1:42:34 PM This report has been signed electronically. Number of Addenda: 0 Note Initiated On: 09/14/2016 12:54 PM Estimated Blood Loss: Estimated blood loss: none.
[2016-09-14 14:00] VITALS: BP 161/86
== END | disposition home or self-care (01) ==
LOC: M OPP 12:23
PROVIDERS: ATTEND Surgery
DX: K64.1 Second degree hemorrhoids (principal); K64.2 Third degree hemorrhoids; K57.30 Diverticulosis of large intestine without perforation or abscess without bleeding; D12.0 Benign neoplasm of cecum; R10.84 Generalized abdominal pain; I85.00 Esophageal varices without bleeding; K29.80 Duodenitis without bleeding; K29.50 Unspecified chronic gastritis without bleeding; I10 Essential (primary) hypertension; E78.00 Pure hypercholesterolemia, unspecified; J44.9 Chronic obstructive pulmonary disease, unspecified; F33.9 Major depressive disorder, recurrent, unspecified; F41.9 Anxiety disorder, unspecified; F12.90 Cannabis use, unspecified, uncomplicated; F17.228 Nicotine dependence, chewing tobacco, with other nicotine-induced disorders; Z79.899 Other long term (current) drug therapy; Z79.51 Long term (current) use of inhaled steroids; Z91.048 Other nonmedicinal substance allergy status

== ENCOUNTER → 2016-10-09 | Outpatient (REF) | payer MEDICARE, MEDICAID ==
[~2016-10-09] MED LIST changes: -LIDOCAINE 2% INJ 100 MG/5 ML SDV (FOR ANES.) As Ordered ONE; -PROPOFOL 200 MG/20 ML VIAL As Ordered ONE
== END ==
LOC: M LAB REF 16:44
PROVIDERS: ATTEND Family Medicine
DX: Z01.89 Encounter for other specified special examinations (principal)

== ENCOUNTER → 2016-11-08 | Outpatient (REF) | payer MEDICARE, MEDICAID ==
[2016-11-10 14:36] LABS: A1A FOR PHENOTYPE 205 mg/dL (90-200)
== END ==
LOC: M LAB REF 12:54
PROVIDERS: ATTEND Internal Medicine Pulmonary Disease
DX: R91.8 Other nonspecific abnormal finding of lung field (principal)

== ENCOUNTER → 2017-01-31 | Outpatient (CLI) | payer MEDICARE, MEDICAID ==
--- NOTE | 2017-01-31 12:14 | REP ---
Clinical: Follow-up of abnormal densities. Technique: Axial noncontrast images from the thoracic inlet to the upper abdomen with coronal and sagittal re-formations. Comparison: 10/16/2016. Findings: Diffuse moderate to advanced COPD and emphysematous changes are appreciated with moderate/large basilar bullae. Nodular pleuroparenchymal changes along the posterior right upper lobe (images 24 - 30) are improved. However, a second similar area of pleural parenchymal change inferior to the original finding is now identified (images 36 - 49). No further acute consolidation, nodule or mass lesion appreciated. No pleural effusion. No pneumothorax. Tracheobronchial tree demonstrates chronic traction bronchiectasis due to emphysematous changes. Atherosclerotic changes to the thoracic aorta and coronary arteries noted without aortic aneurysm or cardiomegaly. No pericardial effusion. No obvious adenopathy. Surrounding musculoskeletal structures are intact. Impression: 1. The original area of pleuroparenchymal change with central nodular density in the posterior right upper lobe has decreased. However, a new second similar area is now appreciated. These findings likely represent areas of scarring, but follow-up examination in 3-6 months may be warranted. 2. Moderate to advanced COPD and emphysematous changes with basilar bullae and traction bronchiectasis. Signed by Arturo Fitzgerald MD 01/31/2017 12:05 P
== END ==
LOC: M RAD 10:38
PROVIDERS: ATTEND Internal Medicine Pulmonary Disease
DX: R91.8 Other nonspecific abnormal finding of lung field (principal)

== ENCOUNTER → 2017-07-12 | Outpatient (CLI) | payer MEDICARE, MEDICAID ==
[2017-07-12 18:22] LABS: THYROID PEROXIDASE ANTIBODY < 28.0 U/ML (<60.0)
[2017-07-12 18:41] LABS: MEAN CORPUSCULAR HEMOGLOBIN 31.9 pg (27.0-33.0); MEAN CORPUSCULAR HGB CONC 32.9 g/dl (32.0-36.5); PLATELET COUNT, AUTOMATED 273 10^3/uL (150-450); RED CELL DISTRIBUTION WIDTH 13.3 % (11.5-14.5); WHITE BLOOD COUNT 8.9 10^3/uL (4.0-10.0)
[2017-07-12 18:54] LABS: ALBUMIN 3.7 GM/DL (3.2-5.2); ALBUMIN/GLOBULIN RATIO 1.09 (1.00-1.93); ALKALINE PHOSPHATASE 68 U/L (45-117); ALT/SGPT 18 U/L (12-78); ANION GAP 9 MEQ/L (8-16); AST/SGOT 10 U/L (7-37); BILIRUBIN,TOTAL 0.3 MG/DL (0.2-1.0); BLOOD UREA NITROGEN 20 MG/DL (7-18); CALCIUM LEVEL 9.3 MG/DL (8.8-10.2); CARBON DIOXIDE LEVEL 28 MEQ/L (21-32); CHLORIDE LEVEL 103 MEQ/L (98-107); CREATININE FOR GFR 1.05 MG/DL (0.70-1.30); GLOMERULAR FILTRATION RATE > 60.0 (>49); GLUCOSE, FASTING 87 MG/DL (80-110); POTASSIUM SERUM 4.3 MEQ/L (3.5-5.1); SODIUM LEVEL 140 MEQ/L (136-145); THYROXINE (T4) 11.7 UG/DL (4.5-12.0); TOTAL PROTEIN 7.1 GM/DL (6.4-8.2)
[2017-07-12 19:11] LABS: ERYTHROCYTE SEDIMENTATION RATE 2 mm/hr (0-20)
== END ==
LOC: M SMT 14:40
PROVIDERS: ATTEND Allergy & Immunology Allergy
DX: L50.1 Idiopathic urticaria (principal); J30.1 Allergic rhinitis due to pollen; J30.89 Other allergic rhinitis

== ENCOUNTER → 2017-08-03 | Outpatient (CLI) | payer MEDICARE, MEDICAID | LOC: M RAD 14:18 | DX: R91.8 Other nonspecific abnormal finding of lung field (principal) | CPT/HCPCS: 71250 ==

== ENCOUNTER 2017-10-11 11:19 | Day surgery (SDC) | payer MEDICARE, MEDICAID ==
[~2017-10-11 11:19] MED LIST changes: -CLAR10CA3 PO; -FLUO40CA PO; -FLUT11IN INH; +LIDOCAINE 2% MDV 20 ML VIAL As Ordered; -LISI10TA4 PO; +PROPOFOL 200 MG/20 ML VIAL As Ordered; -SIMV20TA2 PO
[2017-10-11] MEDS: NS 1,000 ML IV (12:09)
== END 2017-10-11 13:21 | disposition home or self-care (01) ==
LOC: M OPP 11:19
DX: Z09 Encounter for follow-up examination after completed treatment for conditions other than malignant neoplasm (principal); D12.0 Benign neoplasm of cecum; D12.3 Benign neoplasm of transverse colon; K64.2 Third degree hemorrhoids; K57.30 Diverticulosis of large intestine without perforation or abscess without bleeding; Z86.010 Personal history of colon polyps; I10 Essential (primary) hypertension; E78.00 Pure hypercholesterolemia, unspecified; F41.9 Anxiety disorder, unspecified; F32.9 Major depressive disorder, single episode, unspecified; J44.9 Chronic obstructive pulmonary disease, unspecified; Z79.899 Other long term (current) drug therapy; Z87.891 Personal history of nicotine dependence; Z86.711 Personal history of pulmonary embolism; Z86.718 Personal history of other venous thrombosis and embolism
CPT/HCPCS: 45385

== ENCOUNTER → 2018-01-04 | Outpatient (CLI) | payer MEDICARE, MEDICAID ==
[2018-01-04 13:42] LABS: CREATININE FOR GFR 0.86 MG/DL (0.70-1.30); GLOMERULAR FILTRATION RATE > 60.0 (>49)
[2018-01-04 13:42] LABS: BLOOD UREA NITROGEN 17 MG/DL (7-18)
== END ==
LOC: M LAB 12:05
DX: H90.3 Sensorineural hearing loss, bilateral (principal)
CPT/HCPCS: 82565

== ENCOUNTER → 2018-01-09 | Outpatient (CLI) | payer MEDICARE, MEDICAID ==
[~2018-01-09] MED LIST changes: -LIDOCAINE 2% MDV 20 ML VIAL As Ordered; +PROHANCE 279.3MG/ML 15ML VIAL (A9576) As Ordered; +PROHANCE 279.3MG/ML 5ML VIAL (A9576) As Ordered; -PROPOFOL 200 MG/20 ML VIAL As Ordered
== END ==
LOC: M RAD 14:48
DX: I73.9 Peripheral vascular disease, unspecified (principal); D33.3 Benign neoplasm of cranial nerves; H90.3 Sensorineural hearing loss, bilateral
CPT/HCPCS: A9576

== ENCOUNTER → 2018-02-08 | Outpatient (CLI) | payer MEDICARE, MEDICAID | LOC: M RAD 10:31 | DX: R22.32 Localized swelling, mass and lump, left upper limb (principal) | CPT/HCPCS: 76882 ==

== ENCOUNTER → 2018-11-01 | Outpatient (REF) | payer MEDICARE ==
[~2018-11-01] MED LIST changes: +CLAR10CA3 PO; +FLUO40CA PO; +FLUT11IN INH; +LISI10TA4 PO; -PROHANCE 279.3MG/ML 15ML VIAL (A9576) As Ordered; -PROHANCE 279.3MG/ML 5ML VIAL (A9576) As Ordered; +SIMV20TA2 PO; +VENTAER IN; +XYZA5TAB2 PO
[2018-11-01 12:12] LABS: BLOOD UREA NITROGEN 24 MG/DL (7-18); CARBON DIOXIDE LEVEL 24 MEQ/L (21-32); CHLORIDE LEVEL 108 MEQ/L (98-107); CREATININE FOR GFR 1.04 MG/DL (0.70-1.30); GLOMERULAR FILTRATION RATE > 60.0 (>49); GLUCOSE, FASTING 109 MG/DL (70-100); POTASSIUM SERUM 4.2 MEQ/L (3.5-5.1); SODIUM LEVEL 140 MEQ/L (136-145)
== END ==
LOC: M LABDRAW1 10:39
PROVIDERS: ATTEND Family Medicine
DX: S46.212D Strain of muscle, fascia and tendon of other parts of biceps, left arm, subsequent encounter (principal); X58.XXXD Exposure to other specified factors, subsequent encounter

== ENCOUNTER → 2018-11-04 | Outpatient (CLI) | payer MEDICARE ==
[~2018-11-04] MED LIST changes: +PROHANCE 279.3MG/ML 15ML VIAL (A9576) As Ordered ONE; +PROHANCE 279.3MG/ML 5ML VIAL (A9576) As Ordered ONE
--- NOTE | 2018-11-04 12:58 | REP ---
MRA BRAIN WITHOUT CONTRAST: HISTORY: Possible right internal carotid artery aneurysm. 3D [id number] MR angiography was performed at the level of the [place] of [place]. There is no aneurysm or arteriovenous malformation. Mild atherosclerotic disease involves the cavernous internal carotid arteries. Major intracranial vessels are patent. The left vertebral artery is dominant. IMPRESSION: 1. There is no aneurysm or arteriovenous malformation. 2. Atherosclerotic disease as described above. Electronically Signed by Sebastian Lazcano MD 11/04/2018 01:05 P
--- NOTE | 2018-11-04 13:03 | REP ---
MR BRAIN WITHOUT AND WITH CONTRAST: HISTORY: Right acoustic neuroma. CONTRAST: ProHance 19 mL. COMPARISON: 01/09/2018. Scattered punctate areas of increased signal intensity on T2-weighted images are present in the periventricular and subcortical white matter. This represents small vessel ischemic disease. There is no intraparenchymal hemorrhage, infarct, or midline shift. The ventricular system and cortical sulci are dilated consistent with minimal volume loss. There is no extracerebral collection. A mass with intense homogeneous enhancement is present in the right internal auditory canal and cerebellopontile angle cistern. This represents an acoustic neuroma. The acoustic neuroma measures 1.8 cm in transverse by 1.3 cm in AP by 0.8 cm in cephalocaudal dimensions and is unchanged in size compared to the previous study. The structures of the left inner ear are normal in appearance. The mastoid air cells and sinuses are clear. IMPRESSION: 1. Minimal small vessel ischemic disease. 2. Minimal volume loss. 3. There has been no change in size of the right acoustic neuroma compared to the previous study. Electronically Signed by Sebastian Lazcano MD 11/04/2018 01:10 P
== END ==
LOC: M RAD 10:45
PROVIDERS: ATTEND Family Medicine
DX: D33.3 Benign neoplasm of cranial nerves (principal); I67.9 Cerebrovascular disease, unspecified
CPT/HCPCS: 70544; 70553; A9576

== ENCOUNTER → 2018-11-08 | Outpatient (CLI) | payer MEDICARE ==
[~2018-11-08] MED LIST changes: -PROHANCE 279.3MG/ML 15ML VIAL (A9576) As Ordered ONE; -PROHANCE 279.3MG/ML 5ML VIAL (A9576) As Ordered ONE
--- NOTE | 2018-11-08 12:05 | REP ---
MR CERVICAL SPINE WITHOUT CONTRAST: HISTORY: Bilateral arm weakness. A disc bulge present at the C2-3 level. There are 2 mm of anterior subluxation of 2 on 3. There is minimal effacement of the thecal sac without spinal cord compression. Facet hypertrophy is present in the right. This produces minimal narrowing of the right C2 neural foramen. The left C2 neural foramen is patent. A disc bulge with associated osteophyte formation is present at the C3-4 level. There are 2 mm of retrolisthesis of C3 on C4. There is minimal spinal cord compression. Uncinate process hypertrophy is present on the left. This produces mild narrowing of the left C3 neural foramen. The right C3 neural foramen is patent. A disc bulge with associated osteophyte formation is present at the C4-5 level. There is minimal spinal cord compression. Bilateral uncinate process and facet hypertrophy are present. These findings produce mild and moderate narrowing of the right and left C4 neural foramina respectively. A diffuse bulge with associated osteophyte formation is present at the C5-6 level. There is moderate effacement of the thecal sac without spinal cord compression. Bilateral uncinate process and facet hypertrophy are present. These findings produce moderate narrowing of the C5 neural foramina. A disc bulge with associated osteophyte formation is present at the C6-7 level. There is mild effacement of the thecal sac without spinal cord compression. Bilateral uncinate process hypertrophy is present. This produces minimal narrowing at the C6 neural foramina. A disc protrusion is present at the C7-T1 level. There is minimal effacement of the thecal sac without spinal cord compression. The C7 neural foramina are patent. There is no other disc bulge or herniation. The C2-3 through C6-7 intervertebral discs are decreased in height consistent with disc degeneration. Increased signal intensity on T2-weighted images is present in the endplates of the C3 through C7 vertebral bodies. This represents degenerative change. IMPRESSION: There is cervical spondylosis at the C2-3 through C7-T1 levels most significant at the C3-4 and C4-5 levels where there is minimal spinal cord compression. Electronically Signed by Sebastian Lazcano MD 11/08/2018 12:07 P
== END ==
LOC: M RAD 10:49
PROVIDERS: ATTEND Family Medicine
DX: M50.20 Other cervical disc displacement, unspecified cervical region (principal); M47.892 Other spondylosis, cervical region; M47.893 Other spondylosis, cervicothoracic region

== ENCOUNTER → 2018-11-13 | Outpatient (REF) | payer MEDICARE, MEDICAID | LOC: M LAB REF 13:23 | PROVIDERS: ATTEND Internal Medicine Pulmonary Disease | DX: J44.1 Chronic obstructive pulmonary disease with (acute) exacerbation (principal) ==

== ENCOUNTER → 2019-06-04 | Outpatient (CLI) | payer MEDICARE, MEDICAID ==
--- NOTE | 2019-06-04 11:11 | REP ---
Clinical: Lung screening. History smoking. Comparison: 08/03/2017 Technique: Axial low-dose noncontrast images from the thoracic inlet to the upper abdomen using lung screening technique. Findings: The lung [place] demonstrate moderate/advanced emphysematous changes with scattered scarring similar to prior examination. New area of presumed scarring along the medial right middle lobe noted. No consolidation, significant nodule or mass lesion is appreciated. Small stable non solid 3 mm nodule in the periphery of the left lower lobe (image 64). No pleural effusion/reaction or pneumothorax. Tracheobronchial tree is patent. Mediastinum demonstrates mild atherosclerotic changes of the coronary arteries without cardiomegaly. Impression: Lung-RADS category II. No new significant nodule or suspicious abnormality. Relatively chronic-appearing scarring with new area of presumed scarring along the medial right middle lobe. Electronically Signed by Arturo Fitzgerald MD 06/04/2019 11:03 A
== END ==
LOC: M RAD 10:38
PROVIDERS: ATTEND Internal Medicine Pulmonary Disease
DX: Z12.2 Encounter for screening for malignant neoplasm of respiratory organs (principal); F17.219 Nicotine dependence, cigarettes, with unspecified nicotine-induced disorders; R91.1 Solitary pulmonary nodule; J43.9 Emphysema, unspecified; I25.10 Atherosclerotic heart disease of native coronary artery without angina pectoris

== ENCOUNTER → 2019-09-08 | Outpatient (CLI) | payer MEDICARE, MEDICAID ==
[~2019-09-08] MED LIST changes: -SIMV20TA2 PO; +SIMV20TA22 PO
[2019-09-08 11:32] LABS: BASO # 0.1 10^3/uL (0.0-0.2); BASO % 0.8 % (0.0-1.0); EOS # 0.3 10^3/uL (0.0-0.5); EOS % 3.5 % (0.0-3.0); HEMATOCRIT 46.9 % (42.0-52.0); HEMOGLOBIN 15.4 g/dl (13.5-17.5); LYMPH % 26.8 % (24.0-44.0); MEAN CORPUSCULAR HEMOGLOBIN 31.3 pg (27.0-33.0); MEAN CORPUSCULAR HGB CONC 32.8 g/dl (32.0-36.5); MEAN CORPUSCULAR VOLUME 95.3 fl (80.0-96.0); MONO # 0.8 10^3/uL (0.0-0.8); MONO % 10.7 % (0.0-5.0); NEUTROPHILS # 4.3 10^3/uL (1.5-8.5); NEUTROPHILS % 57.9 % (36.0-66.0); PLATELET COUNT, AUTOMATED 231 10^3/uL (150-450); RED BLOOD COUNT 4.92 10^6/uL (4.30-6.10); WHITE BLOOD COUNT 7.4 10^3/uL (4.0-10.0)
[2019-09-08 12:02] LABS: HEMOGLOBIN A1c 6.1 %
[2019-09-08 12:14] LABS: ALBUMIN 3.6 GM/DL (3.2-5.2); ALT/SGPT 16 U/L (12-78); BILIRUBIN,TOTAL 0.6 MG/DL (0.2-1.0); BLOOD UREA NITROGEN 18 MG/DL (7-18); CALCIUM LEVEL 9.2 MG/DL (8.8-10.2); CARBON DIOXIDE LEVEL 29 MEQ/L (21-32); CHLORIDE LEVEL 105 MEQ/L (98-107); CHOLESTEROL LEVEL 162 MG/DL (<200); CHOLESTEROL RISK RATIO 2.382 (<5); CREATININE FOR GFR 0.81 MG/DL (0.70-1.30); GLOMERULAR FILTRATION RATE > 60.0 (>49); GLUCOSE, FASTING 115 MG/DL (70-100); HDL CHOLESTEROL 68 MG/DL (>40); LDL CHOLESTEROL 79 MG/DL (<100); NON-HDL-C 94 MG/DL; SODIUM LEVEL 140 MEQ/L (136-145); TOTAL PROTEIN 6.4 GM/DL (6.4-8.2); TRIGLYCERIDES LEVEL 76 MG/DL (<150)
== END ==
LOC: M LAB 10:50
PROVIDERS: ATTEND Nurse Practitioner Family
DX: E78.5 Hyperlipidemia, unspecified (principal); I10 Essential (primary) hypertension; Z12.5 Encounter for screening for malignant neoplasm of prostate
CPT/HCPCS: 36415; 80053; 80061; 83036; 85025; G0103

== ENCOUNTER → 2020-07-23 | Outpatient (REF) | payer MEDICARE, MEDICAID ==
[2020-07-23 11:52] LABS: BASO # 0.1 10^3/uL (0.0-0.2); BASO % 0.8 % (0.0-1.0); EOS # 0.3 10^3/uL (0.0-0.5); EOS % 3.7 % (0.0-3.0); HEMATOCRIT 49.3 % (42.0-52.0); HEMOGLOBIN 16.2 g/dl (13.5-17.5); LYMPH # 1.8 10^3/uL (1.5-5.0); LYMPH % 20.7 % (24.0-44.0); MEAN CORPUSCULAR HEMOGLOBIN 32.5 pg (27.0-33.0); MEAN CORPUSCULAR HGB CONC 32.9 g/dl (32.0-36.5); MEAN CORPUSCULAR VOLUME 98.8 fl (80.0-96.0); MONO # 0.9 10^3/uL (0.0-0.8); MONO % 10.5 % (0.0-5.0); NEUTROPHILS # 5.7 10^3/uL (1.5-8.5); NEUTROPHILS % 63.7 % (36.0-66.0); PLATELET COUNT, AUTOMATED 238 10^3/uL (150-450); RED BLOOD COUNT 4.99 10^6/uL (4.30-6.10); WHITE BLOOD COUNT 8.9 10^3/uL (4.0-10.0)
[2020-07-23 12:21] LABS: ALBUMIN 3.7 GM/DL (3.2-5.2); ALT/SGPT 17 U/L (12-78); BILIRUBIN,TOTAL 0.5 MG/DL (0.2-1.0); BLOOD UREA NITROGEN 12 MG/DL (7-18); CALCIUM LEVEL 9.3 MG/DL (8.8-10.2); CARBON DIOXIDE LEVEL 29 MEQ/L (21-32); CHLORIDE LEVEL 106 MEQ/L (98-107); CHOLESTEROL LEVEL 167 MG/DL (<200); GLOMERULAR FILTRATION RATE > 60.0 (>42); GLUCOSE, FASTING 102 MG/DL (70-100); HDL CHOLESTEROL 66 MG/DL (>40); LDL CHOLESTEROL 88 MG/DL (<100); NON-HDL-C 101 MG/DL; POTASSIUM SERUM 4.3 MEQ/L (3.5-5.1); SODIUM LEVEL 141 MEQ/L (136-145); THYROID STIMULATING HORMONE 0.472 uIU/ML (0.358-3.740); TOTAL PROTEIN 6.5 GM/DL (6.4-8.2); TRIGLYCERIDES LEVEL 64 MG/DL (<150)
[2020-07-23 12:38] LABS: HEMOGLOBIN A1c 5.5 %
== END ==
LOC: M SFHCPLAZ 09:14
PROVIDERS: ATTEND Nurse Practitioner Family
DX: E78.5 Hyperlipidemia, unspecified (principal); I10 Essential (primary) hypertension; R73.09 Other abnormal glucose; Z12.5 Encounter for screening for malignant neoplasm of prostate
CPT/HCPCS: 36415; 80053; 80061; 83036; 83735; 84439; 84443; 85025; G0103; G0463

== ENCOUNTER → 2020-08-13 | Outpatient (CLI) | payer MEDICARE, MEDICAID ==
[~2020-08-13] MED LIST changes: +LISI10TA22 PO; -LISI10TA4 PO; +PROHANCE 279.3MG/ML 15ML VIAL As Ordered ONE; +PROHANCE 279.3MG/ML 5ML VIAL As Ordered ONE
--- NOTE | 2020-08-13 11:03 | REP ---
INDICATION: ACOUSTIC NEUROMA. COMPARISON: Comparison MR exam November 04, 2018.. TECHNIQUE: Axial and coronal imaging planes are utilized. T1 and T2 weighted sequences include spin echo, turbo spin echo, FLAIR, diffusion-weighted scans, thin section T2 weighted 3D spin echo, and postcontrast images. Thin sections of the posterior fossa are included. The gadolinium enhancement dose is 18 mL of intravenous ProHance. FINDINGS: There is a intracanalicular/extra canalicular soft tissue mass in the right CP angle cistern partially occupying the right internal auditory canal. The right IAC is somewhat widened as before measuring 8 mm at its medial aspect on the right compared to 6 mm on the left. This is unchanged. The right-sided acoustic neuroma is again seen measuring 1.6 x 1.1 x 0.8 cm. This is felt to be unchanged from comparison study November 04, 2018 and January 09, 2018. The left internal auditory canal and its contents are normal. No other extra-axial mass or nodule is seen. There are mild small vessel changes again noted in the periventricular white matter. No acute infarct or hemorrhage is seen. Diffusion-weighted scans show no evidence of restricted diffusion. Postcontrast images show intense homogeneous enhancement in the right acoustic neuroma. Normal vascular enhancement is seen. No other abnormal intracranial enhancement is seen. IMPRESSION: Findings consistent with acoustic neuroma on the right with intracanalicular and extra canalicular component. The lesion is felt to be unchanged in size and appearance. <Electronically signed by Tavo Marin > 08/13/20 [id number]
== END ==
LOC: M RAD 09:11
PROVIDERS: ATTEND Nurse Practitioner Family
DX: D33.3 Benign neoplasm of cranial nerves (principal); Z12.2 Encounter for screening for malignant neoplasm of respiratory organs; Z87.891 Personal history of nicotine dependence; R91.8 Other nonspecific abnormal finding of lung field
CPT/HCPCS: 70553; 71271; A9576

== ENCOUNTER → 2020-08-13 | Outpatient (CLI) | payer MEDICARE, MEDICAID ==
[~2020-08-13] MED LIST changes: -LISI10TA22 PO; +LISI10TA4 PO; -PROHANCE 279.3MG/ML 15ML VIAL As Ordered ONE; -PROHANCE 279.3MG/ML 5ML VIAL As Ordered ONE
--- NOTE | 2020-08-13 11:30 | REP ---
INDICATION: PERSONAL HX OF NICOTINE DEPENDENCE COMPARISON: 06/04/2019, 08/03/2017 TECHNIQUE: Axial noncontrast images from the thoracic inlet to the upper abdomen using low-dose lung screening technique (LDCT). FINDINGS: Lung [place] demonstrate advanced COPD/emphysematous changes with relatively stable chronic bronchiectasis and scattered scarring. There are few small part solid ground-glass foci primarily in the right lower lobe measuring up to 16 mm with small solid components less than 6 mm which likely represent progressive areas of scarring and less likely significant active pathology. No acute consolidation, significant nodule or mass lesion otherwise appreciated. No effusion. No pneumothorax. IMPRESSION: Findings as described above may be categorized as Lung-RADS 3 and probably benign. Management recommendations include 6 month low-dose CT follow-up examination to confirm stability prior to down grading category. <Electronically signed by Arturo Fitzgerald > 08/13/20 [id number]
== END ==
LOC: M RAD 10:56
PROVIDERS: ATTEND Internal Medicine Pulmonary Disease
DX: Z12.2 Encounter for screening for malignant neoplasm of respiratory organs (principal); Z87.891 Personal history of nicotine dependence; R91.8 Other nonspecific abnormal finding of lung field

== ENCOUNTER → 2020-11-27 | Outpatient (CLI) | payer MEDICARE, MEDICAID ==
[~2020-11-27] MED LIST changes: +AMLO1TAB24 PO; +FLOM0.4C39 PO; +LISI10TA22 PO; -LISI10TA4 PO; +TREL1AER INH; +VITA-113 PO
== END ==
LOC: M LABSMTC 08:58
PROVIDERS: ATTEND Anesthesiology
DX: Z01.812 Encounter for preprocedural laboratory examination (principal); Z20.822 Contact with and (suspected) exposure to COVID-19

== ENCOUNTER → 2021-02-22 | Outpatient (CLI) | payer MEDICARE, MEDICAID ==
[2021-02-22 11:14] LABS: ALBUMIN 3.4 GM/DL (3.2-5.2); ALT/SGPT 19 U/L (12-78); BILIRUBIN,TOTAL 0.4 MG/DL (0.2-1.0); BLOOD UREA NITROGEN 10 MG/DL (7-18); CALCIUM LEVEL 8.9 MG/DL (8.8-10.2); CARBON DIOXIDE LEVEL 31 MEQ/L (21-32); CHLORIDE LEVEL 106 MEQ/L (98-107); CHOLESTEROL LEVEL 184 MG/DL (<200); CHOLESTEROL RISK RATIO 2.243 (<5); CREATININE FOR GFR 0.75 MG/DL (0.70-1.30); GLOMERULAR FILTRATION RATE > 60.0 (>42); GLUCOSE, FASTING 105 MG/DL (70-100); HDL CHOLESTEROL 82 MG/DL (>40); LDL CHOLESTEROL 90 MG/DL (<100); NON-HDL-C 102 MG/DL; POTASSIUM SERUM 4.4 MEQ/L (3.5-5.1); SODIUM LEVEL 139 MEQ/L (136-145); TOTAL PROTEIN 6.2 GM/DL (6.4-8.2); TRIGLYCERIDES LEVEL 59 MG/DL (<150)
[2021-02-22 11:15] LABS: HEMOGLOBIN A1c 5.4 %
== END ==
LOC: M LAB 10:04
PROVIDERS: ATTEND Nurse Practitioner Family
DX: E78.5 Hyperlipidemia, unspecified (principal); I10 Essential (primary) hypertension; R73.09 Other abnormal glucose; J44.9 Chronic obstructive pulmonary disease, unspecified

== ENCOUNTER → 2021-02-22 | Outpatient (CLI) | payer MEDICARE, MEDICAID ==
[2021-02-22 11:09] LABS: BLOOD UREA NITROGEN 9 MG/DL (7-18); CREATININE FOR GFR 0.75 MG/DL (0.70-1.30); GLOMERULAR FILTRATION RATE > 60.0 (>42)
== END ==
LOC: M LAB 10:07
PROVIDERS: ATTEND Internal Medicine Pulmonary Disease
DX: J44.9 Chronic obstructive pulmonary disease, unspecified (principal)

== ENCOUNTER → 2021-02-28 | Outpatient (CLI) | payer MEDICARE, MEDICAID ==
[~2021-02-28] MED LIST changes: +ISOVUE-370 76% 100ML VIAL As Ordered ONE
--- NOTE | 2021-02-28 15:28 | REP ---
INDICATION: CHRONIC OBSTRUCTIVE PULMONARY DISEASE. COMPARISON: 08/03/2017, 01/31/2017 TECHNIQUE: Bolus of 75 mL Isovue 370 scanning through the chest with coronal and sagittal reconstructions. FINDINGS: Bullous emphysematous changes noted with some very large bulla in the lower lung zones and multiple scattered bulla in the upper lung zones. Appearance is stable there is apical pleuroparenchymal fibrotic change right greater than left but stable. Some fibrotic changes in the posterior segment right upper lobe are unchanged for 3 and half years. There are bronchiectatic changes evident. A curvilinear fibrotic change in the medial aspect medial segment right middle lobe at the and teary ower right lung base. Is also some lingular curvilinear fibrotic change and posterior/lateral basal segment scarring the left lateral base with pleural thickening and stranding which all appears stable from the previous exam. No pleural effusion, new nodules, masses or acute infiltrates. The main, right and left pulmonary arteries along with the lobar arteries near the rafael show no evidence of a filling defect or vessel cut off. The aorta is without aneurysm or dissection. No pathologic sized mediastinal or hilar adenopathy. An 8 mm AP window node seen, benign by CT size criteria. Coronary artery calcifications are seen with no mediastinal mass identified. No hilar, pathologic size axillary or supraclavicular mass is identified. No gross cardiomegaly pericardial thickening or effusion. The sternum, manubrium, portions of medial clavicles, scapulae, humeral heads and included ribs were unremarkable marginal osteophytes in the thoracic and upper lumbar spine without acute compression deformity or destructive lesion. The upper abdomen shows that portion of liver, gallbladder, pancreas, adrenal glands and the upper poles of kidneys intact spleen is unremarkable. Colon small bowel loops included unremarkable. IMPRESSION: 1. Advanced COPD with bullous emphysematous changes, scattered areas of scarring (greatest in the posterior and lateral basal segments left lower lobe which is unchanged in that region). The right upper lobe shows areas of scarring with findings smaller than on the CT 3 1/2 years ago confirm it there is some scarring. 2. No other significant intrathoracic or upper abdominal finding. Bones intact. <Electronically signed by Nnamdi Dubois > 02/28/21 [id number]
== END ==
LOC: M RAD 13:34
PROVIDERS: ATTEND Internal Medicine Pulmonary Disease
DX: J43.9 Emphysema, unspecified (principal); J84.10 Pulmonary fibrosis, unspecified
CPT/HCPCS: 71260; Q9967

== ENCOUNTER → 2021-09-30 | Outpatient (REF) | payer MEDICARE, MEDICAID ==
[~2021-09-30] MED LIST changes: -ISOVUE-370 76% 100ML VIAL As Ordered ONE
== END ==
LOC: M SFHCPLAZ 10:43
PROVIDERS: ATTEND Family Medicine
DX: Z72.89 Other problems related to lifestyle (principal); I10 Essential (primary) hypertension

== ENCOUNTER → 2021-10-03 | Outpatient (CLI) | payer MEDICARE | LOC: M RAD 10:34 | PROVIDERS: ATTEND Internal Medicine Pulmonary Disease | DX: J44.1 Chronic obstructive pulmonary disease with (acute) exacerbation (principal); J84.9 Interstitial pulmonary disease, unspecified ==

== ENCOUNTER → 2021-10-03 | Outpatient (CLI) | payer MEDICARE ==
[2021-10-03 11:20] LABS: APPEARANCE, URINE MANUAL CLEAR (CLEAR); COLOR, URINE MANUAL YELLOW (YELLOW); PROTEIN, URINE MANUAL TRACE mg/dL (NEGATIVE); SPECIFIC GRAVITY,URINE MANUAL 1.025 (1.002-1.035)
[2021-10-03 11:21] LABS: BILIRUBIN, URINE MANUAL NEGATIVE (NEGATIVE); BLOOD URINE MANUAL TRACE (NEGATIVE); GLUCOSE, URINE (UA) MANUAL NEGATIVE (NEGATIVE); KETONE, URINE MANUAL NEGATIVE (NEGATIVE); LEUKOCYTE ESTERASE, URINE MAN NEGATIVE (NEGATIVE); NITRITE, URINE MANUAL NEGATIVE (NEGATIVE); UROBILINOGEN, URINE MANUAL NORMAL (NORMAL)
[2021-10-03 11:31] LABS: WBC, URINE 0-1 /hpf (0-3)
[2021-10-03 11:32] LABS: MUCUS, URINE SMALL AMOUNT (NEGATIVE); SQUAMOUS EPITHELIAL CELL URINE SMALL AMOUNT /hpf (SMALL AMT)
[2021-10-03 12:00] LABS: ALBUMIN 3.3 GM/DL (3.2-5.2); ALT/SGPT 19 U/L (12-78); BILIRUBIN,TOTAL 0.3 MG/DL (0.2-1.0); BLOOD UREA NITROGEN 15 MG/DL (7-18); CALCIUM LEVEL 9.3 MG/DL (8.8-10.2); CARBON DIOXIDE LEVEL 32 MEQ/L (21-32); CHLORIDE LEVEL 104 MEQ/L (98-107); GLOMERULAR FILTRATION RATE > 60.0 (>42); GLUCOSE, FASTING 110 MG/DL (70-100); POTASSIUM SERUM 4.6 MEQ/L (3.5-5.1); SODIUM LEVEL 139 MEQ/L (136-145); TOTAL PROTEIN 6.5 GM/DL (6.4-8.2)
[2021-10-03 12:04] LABS: FOLATE > 24.0 NG/ML (>5.4); VITAMIN B12 LEVEL 496 PG/ML (247-911)
[2021-10-03 12:11] LABS: MAU/CREAT RATIO 6.4 MCG/MG (0.0-30.0)
== END ==
LOC: M LAB 10:38
PROVIDERS: ATTEND Student in an Organized Health Care Education/Training Program
DX: Z72.89 Other problems related to lifestyle (principal); I10 Essential (primary) hypertension

== ENCOUNTER → 2021-10-19 | Outpatient (CLI) | payer MEDICARE, MEDICAID | LOC: M RAD 10-10 07:03 | PROVIDERS: ATTEND Student in an Organized Health Care Education/Training Program | DX: R93.2 Abnormal findings on diagnostic imaging of liver and biliary tract (principal); Z72.89 Other problems related to lifestyle ==

== ENCOUNTER → 2022-01-05 | Outpatient (CLI) | payer MEDICARE, MEDICAID ==
[2022-01-05 14:05] LABS: BASO # 0.1 10^3/uL (0.0-0.2); BASO % 0.4 % (0.0-1.0); EOS # 0.1 10^3/uL (0.0-0.5); EOS % 0.9 % (0.0-3.0); HEMATOCRIT 50.3 % (42.0-52.0); HEMOGLOBIN 16.9 g/dl (13.5-17.5); LYMPH # 0.9 10^3/uL (1.5-5.0); LYMPH % 8.1 % (24.0-44.0); MEAN CORPUSCULAR HEMOGLOBIN 32.8 pg (27.0-33.0); MEAN CORPUSCULAR HGB CONC 33.6 g/dl (32.0-36.5); MEAN CORPUSCULAR VOLUME 97.7 fl (80.0-96.0); MONO # 0.7 10^3/uL (0.0-0.8); MONO % 5.6 % (2.0-8.0); NEUTROPHILS # 9.8 10^3/uL (1.5-8.5); NEUTROPHILS % 84.6 % (36.0-66.0); PLATELET COUNT, AUTOMATED 250 10^3/uL (150-450); RED BLOOD COUNT 5.15 10^6/uL (4.30-6.10); WHITE BLOOD COUNT 11.6 10^3/uL (4.0-10.0)
[2022-01-05 14:34] LABS: CHOLESTEROL RISK RATIO 1.829 (<5)
== END ==
LOC: M PLALAB 09:30
PROVIDERS: ATTEND Family Medicine
DX: E78.5 Hyperlipidemia, unspecified (principal); R22.0 Localized swelling, mass and lump, head

== ENCOUNTER → 2022-03-06 | Outpatient (CLI) | payer MEDICARE ==
[2022-03-06 11:40] LABS: BASO % 0.4 % (0.0-1.0); EOS # 0.1 10^3/uL (0.0-0.5); EOS % 1.2 % (0.0-3.0); HEMATOCRIT 51.2 % (42.0-52.0); LYMPH # 1.6 10^3/uL (1.5-5.0); LYMPH % 15.8 % (24.0-44.0); MEAN CORPUSCULAR HEMOGLOBIN 32.4 pg (27.0-33.0); MEAN CORPUSCULAR HGB CONC 33.2 g/dl (32.0-36.5); MEAN CORPUSCULAR VOLUME 97.5 fl (80.0-96.0); MONO # 1.1 10^3/uL (0.0-0.8); MONO % 10.8 % (2.0-8.0); NEUTROPHILS # 7.2 10^3/uL (1.5-8.5); NEUTROPHILS % 71.4 % (36.0-66.0); PLATELET COUNT, AUTOMATED 205 10^3/uL (150-450); RED BLOOD COUNT 5.25 10^6/uL (4.30-6.10); WHITE BLOOD COUNT 10.1 10^3/uL (4.0-10.0)
[2022-03-06 12:11] LABS: ERYTHROCYTE SEDIMENTATION RATE 2 mm/hr (0-20)
== END ==
LOC: M LAB 11:11
PROVIDERS: ATTEND Student in an Organized Health Care Education/Training Program
DX: R22.0 Localized swelling, mass and lump, head (principal)

== ENCOUNTER → 2022-04-25 | Outpatient (CLI) | payer MEDICARE, MEDICAID | LOC: M RAD 09:56 | PROVIDERS: ATTEND Internal Medicine Pulmonary Disease | DX: Z12.2 Encounter for screening for malignant neoplasm of respiratory organs (principal); Z87.891 Personal history of nicotine dependence; J43.9 Emphysema, unspecified; R91.8 Other nonspecific abnormal finding of lung field ==

== ENCOUNTER → 2022-04-28 | Outpatient (CLI) | payer MEDICARE, MEDICAID | LOC: M WHC 08:26 | PROVIDERS: ATTEND Student in an Organized Health Care Education/Training Program | DX: Z13.6 Encounter for screening for cardiovascular disorders (principal) ==

== ENCOUNTER → 2023-02-28 | Outpatient (CLI) | payer MEDICARE, MEDICAID ==
[2023-02-28 12:25] LABS: HEMATOCRIT 51.6 % (42.0-52.0); HEMOGLOBIN 17.2 g/dl (13.5-17.5); MEAN CORPUSCULAR HEMOGLOBIN 32.3 pg (27.0-33.0); MEAN CORPUSCULAR HGB CONC 33.3 g/dl (32.0-36.5); MEAN CORPUSCULAR VOLUME 96.8 fl (80.0-96.0); PLATELET COUNT, AUTOMATED 233 10^3/uL (150-450); RED BLOOD COUNT 5.33 10^6/uL (4.30-6.10); WHITE BLOOD COUNT 8.6 10^3/uL (4.0-10.0)
[2023-02-28 12:54] LABS: CREATININE, URINE 155.1 MG/DL
[2023-02-28 12:55] LABS: MAU/CREAT RATIO 1.9 MCG/MG (0.0-30.0)
[2023-02-28 12:56] LABS: C REACTIVE PROTEIN QUANTITATIV < 0.40 MG/DL (<1.0)
[2023-02-28 12:57] LABS: ALBUMIN 3.6 G/DL (3.2-5.2); ALKALINE PHOSPHATASE 62 U/L (46-116); ALT/SGPT 12 U/L (7.0-40); AST/SGOT 11 U/L (<34); BILIRUBIN,TOTAL 0.7 MG/DL (0.3-1.2); BLOOD UREA NITROGEN 16 MG/DL (9-23); CARBON DIOXIDE LEVEL 27 MMOL/L (20-31); CHLORIDE LEVEL 104 MMOL/L (98-107); CHOLESTEROL LEVEL 149 MG/DL (<200); CHOLESTEROL RISK RATIO 2.16 (<5); CREATININE FOR GFR 0.81 MG/DL (0.70-1.30); GLOMERULAR FILTRATION RATE > 60.0 (>42); GLUCOSE, FASTING 94 MG/DL (74-106); HDL CHOLESTEROL 68.8 MG/DL (>40); LDL CHOLESTEROL 67.4 MG/DL (<100); NON-HDL-C 80.2 MG/DL; POTASSIUM SERUM 4.4 MMOL/L (3.5-5.1); SODIUM LEVEL 140 MMOL/L (136-145); TOTAL 25(OH) VITAMIN D 31.2 NG/ML (20.0-100.0); TOTAL PROTEIN 6.3 G/DL (5.7-8.2); TRIGLYCERIDES LEVEL 64 MG/DL (<150)
[2023-02-28 12:58] LABS: FREE T4 1.31 NG/DL (0.89-1.76); THYROID STIMULATING HORMONE 0.498 uIU/ML (0.55-4.78); VITAMIN B12 LEVEL 473 PG/ML (211-911)
[2023-02-28 13:07] LABS: HEMOGLOBIN A1c 5.6 % (4.0-6.0)
== END ==
LOC: M WUC 08:47
PROVIDERS: ATTEND Internal Medicine Hematology
DX: I10 Essential (primary) hypertension (principal); N40.0 Benign prostatic hyperplasia without lower urinary tract symptoms; J43.1 Panlobular emphysema; M47.22 Other spondylosis with radiculopathy, cervical region; M54.42 Lumbago with sciatica, left side; F31.81 Bipolar II disorder; Z86.718 Personal history of other venous thrombosis and embolism; Z86.711 Personal history of pulmonary embolism; E78.5 Hyperlipidemia, unspecified; F17.210 Nicotine dependence, cigarettes, uncomplicated
CPT/HCPCS: 36415; 80053; 80061; 82043; 82306; 82607; 83036; 83525; 84439; 84443; 85027; 86140; G0103

== ENCOUNTER → 2023-05-30 | Outpatient (CLI) | payer MEDICARE, MEDICAID ==
[2023-05-30 13:50] LABS: ALBUMIN 3.3 G/DL (3.2-5.2); ALKALINE PHOSPHATASE 65 U/L (46-116); ALT/SGPT 13 U/L (7.0-40); AST/SGOT 12 U/L (<34); BILIRUBIN,TOTAL 0.5 MG/DL (0.3-1.2); BLOOD UREA NITROGEN 17 MG/DL (9-23); CALCIUM LEVEL 9.2 MG/DL (8.3-10.6); CARBON DIOXIDE LEVEL 32 MMOL/L (20-31); CHLORIDE LEVEL 104 MMOL/L (98-107); CHOLESTEROL LEVEL 159 MG/DL (<200); CHOLESTEROL RISK RATIO 2.18 (<5); CREATININE FOR GFR 0.87 MG/DL (0.70-1.30); GLOMERULAR FILTRATION RATE > 60.0 (>42); GLUCOSE, FASTING 121 MG/DL (74-106); HDL CHOLESTEROL 72.9 MG/DL (>40); LDL CHOLESTEROL 72.1 MG/DL (<100); NON-HDL-C 86.1 MG/DL; SODIUM LEVEL 142 MMOL/L (136-145); TOTAL PROTEIN 6.3 G/DL (5.7-8.2); TRIGLYCERIDES LEVEL 70 MG/DL (<150)
[2023-05-30 13:51] LABS: THYROID STIMULATING HORMONE 0.624 uIU/ML (0.55-4.78)
== END ==
LOC: M LAB 12:47
PROVIDERS: ATTEND Internal Medicine Hematology
DX: E78.5 Hyperlipidemia, unspecified (principal)

== ENCOUNTER → 2023-05-30 | Outpatient (CLI) | payer MEDICARE, MEDICAID | LOC: M RAD 12:41 | PROVIDERS: ATTEND Internal Medicine Pulmonary Disease | DX: Z12.2 Encounter for screening for malignant neoplasm of respiratory organs (principal); F17.210 Nicotine dependence, cigarettes, uncomplicated; R91.8 Other nonspecific abnormal finding of lung field; J43.9 Emphysema, unspecified; E78.5 Hyperlipidemia, unspecified; Z12.5 Encounter for screening for malignant neoplasm of prostate | CPT/HCPCS: 36415; 71271; 80053; 80061; 84443; G0103 ==

== ENCOUNTER → 2023-07-02 | Outpatient (CLI) | payer MEDICARE, MEDICAID | LOC: M PLAIMG 08:21 | PROVIDERS: ATTEND Internal Medicine Pulmonary Disease | DX: R91.8 Other nonspecific abnormal finding of lung field (principal); J43.9 Emphysema, unspecified; I25.10 Atherosclerotic heart disease of native coronary artery without angina pectoris ==

== ENCOUNTER → 2024-01-31 | Outpatient (CLI) | payer MEDICARE, MEDICAID | LOC: M PLAIMG 11:02 | PROVIDERS: ATTEND Internal Medicine Pulmonary Disease | DX: R91.8 Other nonspecific abnormal finding of lung field (principal); R91.1 Solitary pulmonary nodule; J43.9 Emphysema, unspecified ==

== ENCOUNTER → 2024-01-31 | Outpatient (CLI) | payer MEDICARE, MEDICAID ==
[2024-01-31 14:08] LABS: ALBUMIN 3.5 G/DL (3.2-5.2); ALKALINE PHOSPHATASE 56 U/L (46-116); ALT/SGPT 23 U/L (7.0-40); AST/SGOT 16 U/L (<34); BILIRUBIN,TOTAL 0.8 MG/DL (0.3-1.2); BLOOD UREA NITROGEN 16 MG/DL (9-23); CALCIUM LEVEL 9.8 MG/DL (8.3-10.6); CARBON DIOXIDE LEVEL 30 MMOL/L (20-31); CHLORIDE LEVEL 103 MMOL/L (98-107); CHOLESTEROL LEVEL 146 MG/DL (<200); CHOLESTEROL RISK RATIO 1.87 (<5); CREATININE FOR GFR 0.76 MG/DL (0.70-1.30); GLOMERULAR FILTRATION RATE > 60.0 (>42); GLUCOSE, FASTING 101 MG/DL (74-106); HDL CHOLESTEROL 77.9 MG/DL (>40); LDL CHOLESTEROL 54.7 MG/DL (<100); NON-HDL-C 68.1 MG/DL; PSA SCREENING 2.59 NG/ML (< 4.00); SODIUM LEVEL 139 MMOL/L (136-145); TOTAL PROTEIN 6.3 G/DL (5.7-8.2); TRIGLYCERIDES LEVEL 67 MG/DL (<150)
[2024-01-31 14:09] LABS: THYROID STIMULATING HORMONE 0.539 uIU/ML (0.55-4.78)
[2024-01-31 14:22] LABS: HEMOGLOBIN A1c 5.2 % (4.0-6.0)
== END ==
LOC: M PLALAB 11:04
PROVIDERS: ATTEND Internal Medicine Hematology
DX: E78.5 Hyperlipidemia, unspecified (principal)

== ENCOUNTER → 2024-02-26 | Outpatient (CLI) | payer MEDICARE, MEDICAID | LOC: M PLARAD 07:27 | PROVIDERS: ATTEND Internal Medicine Pulmonary Disease | DX: R91.8 Other nonspecific abnormal finding of lung field (principal) | CPT/HCPCS: 78815; A9552 ==

== ENCOUNTER → 2024-11-05 | Outpatient (CLI) | payer MEDICARE, MEDICAID | LOC: M RAD 12:16 | PROVIDERS: ATTEND Internal Medicine Pulmonary Disease | DX: R91.8 Other nonspecific abnormal finding of lung field (principal); I25.10 Atherosclerotic heart disease of native coronary artery without angina pectoris ==

== ENCOUNTER → 2024-12-18 | Outpatient (CLI) | payer MEDICARE, MEDICAID ==
[~2024-12-18] MED LIST changes: -FLOM0.4C39 PO; +TAMS-18 PO
== END ==
LOC: M CARPUL 08:53
DX: I45.9 Conduction disorder, unspecified (principal)

== ENCOUNTER → 2025-06-04 | Outpatient (CLI) | payer MEDICARE, MEDICAID ==
[2025-06-04 14:06] LABS: BASO # 0.1 10^3/uL (0.0-0.2); BASO % 0.8 % (0.0-1.0); EOS # 0.3 10^3/uL (0.0-0.5); EOS % 3.0 % (0.0-3.0); LYMPH # 1.5 10^3/uL (1.5-5.0); LYMPH % 17.4 % (24.0-44.0); MONO # 0.9 10^3/uL (0.0-0.8); MONO % 9.9 % (2.0-8.0); NEUTROPHILS # 6.0 10^3/uL (1.5-8.5); NEUTROPHILS % 68.6 % (36.0-66.0); PLATELET COUNT, AUTOMATED 322 10^3/uL (150-450)
[2025-06-04 14:10] LABS: PSA SCREENING 2.95 NG/ML (< 4.00)
[2025-06-04 14:12] LABS: ALT/SGPT 13 U/L (7.0-40); AST/SGOT 16 U/L (<34); CALCIUM LEVEL 9.9 MG/DL (8.3-10.6); CARBON DIOXIDE LEVEL 32 MMOL/L (20-31); CHLORIDE LEVEL 101 MMOL/L (98-107); CHOLESTEROL LEVEL 145 MG/DL (<200); CHOLESTEROL RISK RATIO 2.22 (<5); CREATININE FOR GFR 0.86 MG/DL (0.70-1.30); GLOMERULAR FILTRATION RATE > 90.0 (>42); LDL CHOLESTEROL 66.4 MG/DL (<100); NON-HDL-C 79.8 MG/DL; POTASSIUM SERUM 4.1 MMOL/L (3.5-5.1); SODIUM LEVEL 142 MMOL/L (136-145); TRIGLYCERIDES LEVEL 67 MG/DL (<150)
[2025-06-04 14:14] LABS: FREE T4 1.29 NG/DL (0.89-1.76)
[2025-06-04 14:36] LABS: ESTIMATED AVERAGE GLUCOSE 117.0 MG/DL (60-110)
== END ==
LOC: M PLALAB 11:42
DX: Z00.00 Encounter for general adult medical examination without abnormal findings (principal); Z13.29 Encounter for screening for other suspected endocrine disorder; I10 Essential (primary) hypertension; Z13.1 Encounter for screening for diabetes mellitus; E78.5 Hyperlipidemia, unspecified; N40.0 Benign prostatic hyperplasia without lower urinary tract symptoms